=== PATIENT | female | born 1975 | race Hispanic/Latino ===

== ENCOUNTER 2017-06-27 23:26 | Emergency (ER) | payer MEDICARE | END 2017-06-28 00:27 | disposition home or self-care (01) | LOC: EDH 23:26 | DX: I73.00 Raynaud's syndrome without gangrene (principal); F31.9 Bipolar disorder, unspecified; Z98.890 Other specified postprocedural states; Z90.710 Acquired absence of both cervix and uterus; Z90.49 Acquired absence of other specified parts of digestive tract | CPT/HCPCS: 82948; 99282 ==

== ENCOUNTER 2017-08-10 02:03 | Emergency (ER) | payer MEDICARE ==
[2017-08-10] MEDS ORDERED: IBUPROFEN 600 MG TABLET ONE (03:50)
== END 2017-08-10 04:14 | disposition home or self-care (01) ==
LOC: EDH 02:03
DX: M25.562 Pain in left knee (principal); M25.561 Pain in right knee
CPT/HCPCS: 73562

== ENCOUNTER 2017-08-13 23:40 | Emergency (ER) | payer MEDICARE ==
[2017-08-14 00:22] LABS: BASOPHILS % (AUTO) 0.3 % (0.0-5.0); EOSINOPHILS % (AUTO) 1.2 % (0.0-8.0); HEMATOCRIT 43.8 % (36-48); LYMPHOCYTES % (AUTO) 16.3 % (21.0-51.0); MEAN CORPUSCULAR HEMOGLOBIN 29.8 pg (27.0-33.0); MEAN CORPUSCULAR HGB CONC 33.5 g/dL (32.0-36.0); MONOCYTES % (AUTO) 4.7 % (3.0-13.0); NEUTROPHILS % (AUTO) 77.5 % (40.0-77.0); PLATELET COUNT (AUTO) 292 K/uL (130-400); RED BLOOD CELL COUNT(AUTO) 4.92 MIL/uL (4.00-5.50); RED CELL DISTRIBUTION WIDTH 13.9 % (11.0-15.5); WHITE BLOOD COUNT (AUTO) 7.6 K/uL (4.8-10.8)
[2017-08-14 00:35] LABS: CREATININE 1.1 mg/dL (0.5-1.5); POTASSIUM 3.4 mmol/L (3.5-5.1)
[2017-08-14 00:39] LABS: ALBUMIN 3.4 g/dL (3.5-5.0); BILIRUBIN,TOTAL 0.3 mg/dL (0.2-1.0); TOTAL PROTEIN, SERUM 7.5 g/dL (6.0-8.3)
[2017-08-14 00:43] LABS: CREATINE KINASE, TOTAL 37 U/L (21-232)
[2017-08-14 00:54] LABS: CREATINE KINASE MB < 0.5 ng/mL (0.5-3.6)
[2017-08-14 01:01] LABS: AMPHET/METH SCREEN,URINE NEGATIVE (NEGATIVE); BARBITURATE SCREEN, URINE NEGATIVE (NEGATIVE); BENZODIAZEPINES SCREEN,URINE NEGATIVE (NEGATIVE); CANNABINOID SCREEN,URINE NEGATIVE (NEGATIVE); COCAINE SCREEN,URINE POSITIVE (NEGATIVE); OPIATE SCREEN,URINE NEGATIVE (NEGATIVE); PHENCYCLIDINE SCREEN,URINE NEGATIVE (NEGATIVE)
[2017-08-14] MEDS ORDERED: POTASSIUM BICARB/CIT AC 25 MEQ TABLET.EFF ONE (01:23)
[2017-08-14] MEDS ORDERED: ASPIRIN 325 MG TABLET ONE (01:23)
== END 2017-08-14 04:17 | disposition home or self-care (01) ==
LOC: EDH 23:40
DX: G44.209 Tension-type headache, unspecified, not intractable (principal); R03.0 Elevated blood-pressure reading, without diagnosis of hypertension; F31.9 Bipolar disorder, unspecified; Z90.49 Acquired absence of other specified parts of digestive tract; Z90.710 Acquired absence of both cervix and uterus
CPT/HCPCS: 36415; 71045; 80053; 80305; 82550; 82553; 84484; 85025; 93005

== ENCOUNTER 2017-09-05 17:56 | Emergency (ER) | payer MEDICARE ==
[2017-09-05 18:20] LABS: BASOPHILS % (AUTO) 0.8 % (0.0-5.0); HEMATOCRIT 40.3 % (36-48); LYMPHOCYTES % (AUTO) 27.5 % (21.0-51.0); MEAN CORPUSCULAR HEMOGLOBIN 30.1 pg (27.0-33.0); MEAN CORPUSCULAR HGB CONC 34.2 g/dL (32.0-36.0); MEAN CORPUSCULAR VOLUME 87.9 fL (79-99); MONOCYTES % (AUTO) 4.4 % (3.0-13.0); NEUTROPHILS % (AUTO) 65.3 % (40.0-77.0); PLATELET COUNT (AUTO) 264 K/uL (130-400); RED BLOOD CELL COUNT(AUTO) 4.58 MIL/uL (4.00-5.50); RED CELL DISTRIBUTION WIDTH 13.5 % (11.0-15.5); WHITE BLOOD COUNT (AUTO) 7.8 K/uL (4.8-10.8)
[2017-09-05 18:28] LABS: CARBON DIOXIDE 28 mmol/L (21-32); CHLORIDE 107 mmol/L (101-111); GLOMERULAR FILTR. RATE CALC 65 mL/min (>60); GLUCOSE,RANDOM 113 mg/dL (70-105); POTASSIUM 3.7 mmol/L (3.5-5.1); SODIUM SERUM 141 mmol/L (136-145); UREA NITROGEN, BLOOD 17 mg/dL (7-18)
[2017-09-05 18:41] LABS: ALANINE AMINOTRANSFERASE 27 U/L (12-78); ALBUMIN 3.2 g/dL (3.5-5.0); ASPARTATE AMINOTRANSFERASE 16 U/L (10-37); BILIRUBIN,TOTAL 0.1 mg/dL (0.2-1.0); CREATINE KINASE MB < 0.5 ng/mL (0.5-3.6); CREATINE KINASE, TOTAL 28 U/L (21-232); TOTAL PROTEIN, SERUM 7.3 g/dL (6.0-8.3)
[2017-09-05 19:58] LABS: APPEARANCE,URINE Clear (CLEAR); BILIRUBIN,URINE Negative (NEGATIVE); COLOR,URINE Yellow (YELLOW); GLUCOSE, URINE (UA) Negative (NEGATIVE); KETONES,URINE Negative (NEGATIVE); LEUKOCYTE ESTERASE ,URINE Negative (NEGATIVE); NITRATE,URINE Negative (NEGATIVE); OCCULT BLOOD,URINE Moderate (NEGATIVE); PH,URINE 5.5 (5.0-8.0); PROTEIN,URINE Negative (NEGATIVE); UROBILINOGEN,URINE 0.2 mg/dL (0.2-1.0)
[2017-09-05 20:04] LABS: AMPHET/METH SCREEN,URINE NEGATIVE (NEGATIVE); BARBITURATE SCREEN, URINE NEGATIVE (NEGATIVE); BENZODIAZEPINES SCREEN,URINE NEGATIVE (NEGATIVE); CANNABINOID SCREEN,URINE NEGATIVE (NEGATIVE); COCAINE SCREEN,URINE POSITIVE (NEGATIVE); OPIATE SCREEN,URINE NEGATIVE (NEGATIVE); PHENCYCLIDINE SCREEN,URINE NEGATIVE (NEGATIVE)
[2017-09-05 20:07] LABS: BACTERIA,URINE Rare /HPF (None Seen); SQUAMOUS EPITHELIAL CELL,UR Few /HPF (0-2); WBC,URINE 0-1 /HPF (0-1)
== END 2017-09-05 20:04 | disposition home or self-care (01) ==
LOC: EDH 17:56
DX: R07.9 Chest pain, unspecified (principal); M62.838 Other muscle spasm; I10 Essential (primary) hypertension
CPT/HCPCS: 36415; 71046; 80053; 80305; 81001; 82550; 82553; 84484; 85025; 85378; 87804; 93005

== ENCOUNTER 2017-12-19 23:46 | Emergency (ER) | payer MEDICARE ==
[2017-12-20 00:48] LABS: APPEARANCE,URINE Clear (CLEAR); BILIRUBIN,URINE Negative (NEGATIVE); COLOR,URINE Yellow (YELLOW); GLUCOSE, URINE (UA) Negative (NEGATIVE); KETONES,URINE Trace mg/dL (NEGATIVE); LEUKOCYTE ESTERASE ,URINE Negative (NEGATIVE); NITRATE,URINE Negative (NEGATIVE); OCCULT BLOOD,URINE Small (NEGATIVE); PROTEIN,URINE Negative (NEGATIVE)
[2017-12-20 01:00] LABS: BASOPHILS % (AUTO) 0.7 % (0.0-5.0); EOSINOPHILS % (AUTO) 2.2 % (0.0-8.0); MEAN CORPUSCULAR HEMOGLOBIN 30.6 pg (27.0-33.0); MEAN CORPUSCULAR HGB CONC 34.6 g/dL (32.0-36.0); MEAN CORPUSCULAR VOLUME 88.4 fL (79-99); MONOCYTES % (AUTO) 7.6 % (3.0-13.0); NEUTROPHILS % (AUTO) 61.5 % (40.0-77.0); PLATELET COUNT (AUTO) 252 K/uL (130-400); RED BLOOD CELL COUNT(AUTO) 4.18 MIL/uL (4.00-5.50); RED CELL DISTRIBUTION WIDTH 13.3 % (11.0-15.5); WHITE BLOOD COUNT (AUTO) 6.2 K/uL (4.8-10.8)
[2017-12-20 01:07] LABS: POTASSIUM 3.7 mmol/L (3.5-5.1)
[2017-12-20 01:17] LABS: BACTERIA,URINE Rare /HPF (None Seen); WBC,URINE 0-1 /HPF (0-1)
[2017-12-20] MEDS ORDERED: KETOROLAC TROMETHAMINE 15MG/ML ONE (01:32)
[2017-12-20 01:56] LABS: ERYTHROCYTE SEDIMENTATION RATE 25 MM/HR (0-20)
== END 2017-12-20 03:09 | disposition home or self-care (01) ==
LOC: EDH 23:46
DX: R10.9 Unspecified abdominal pain (principal); M54.5 Low back pain; R60.0 Localized edema; I10 Essential (primary) hypertension; F31.9 Bipolar disorder, unspecified; Z90.710 Acquired absence of both cervix and uterus; Z98.890 Other specified postprocedural states; Z79.899 Other long term (current) drug therapy
CPT/HCPCS: 36415; 80048; 81001; 85025; 85651; 96372; 99284; J1885

== ENCOUNTER 2018-06-27 16:34 | Emergency (ER) | payer MEDICARE ==
[2018-06-27 17:02] LABS: APPEARANCE,URINE Clear (CLEAR); BILIRUBIN,URINE Negative (NEGATIVE); COLOR,URINE Yellow (YELLOW); GLUCOSE, URINE (UA) Negative (NEGATIVE); KETONES,URINE Negative (NEGATIVE); LEUKOCYTE ESTERASE ,URINE Negative (NEGATIVE); NITRATE,URINE Negative (NEGATIVE); OCCULT BLOOD,URINE Small (NEGATIVE); PH,URINE 5.5 (5.0-8.0); PROTEIN,URINE Negative (NEGATIVE); UROBILINOGEN,URINE 0.2 mg/dL (0.2-1.0)
[2018-06-27 18:19] LABS: BACTERIA,URINE Rare /HPF (None Seen); RBC,URINE None Seen /HPF (0-1); WBC,URINE 0-1 /HPF (0-1)
== END 2018-06-27 17:33 | disposition home or self-care (01) ==
LOC: EDH 16:34
DX: F41.1 Generalized anxiety disorder (principal); F14.10 Cocaine abuse, uncomplicated; F31.9 Bipolar disorder, unspecified; I10 Essential (primary) hypertension; Z90.710 Acquired absence of both cervix and uterus
CPT/HCPCS: 81001

== ENCOUNTER 2018-07-06 00:31 | Emergency (ER) | payer MEDICARE ==
[2018-07-06 01:39] LABS: APPEARANCE,URINE Clear (CLEAR); BILIRUBIN,URINE Negative (NEGATIVE); COLOR,URINE Yellow (YELLOW); GLUCOSE, URINE (UA) Negative (NEGATIVE); KETONES,URINE Negative (NEGATIVE); LEUKOCYTE ESTERASE ,URINE Large (NEGATIVE); NITRATE,URINE Negative (NEGATIVE); OCCULT BLOOD,URINE Moderate (NEGATIVE); PH,URINE 6.5 (5.0-8.0); PROTEIN,URINE Negative (NEGATIVE); UROBILINOGEN,URINE 0.2 mg/dL (0.2-1.0)
[2018-07-06 01:58] LABS: BACTERIA,URINE None Seen /HPF (None Seen); RBC,URINE 0-1 /HPF (0-1)
[2018-07-06] MEDS ORDERED: ONDANSETRON HCL 4 MG/2 ML VIAL ONE (02:09)
[2018-07-06] MEDS ORDERED: SODIUM CHLORIDE 0.9% 1000ML 1,000 ML IV ONE (02:09)
[2018-07-06] MEDS ORDERED: MORPHINE SULFATE 4 MG/1ML SYG ONE (02:10)
[2018-07-06 02:14] LABS: BASOPHILS % (AUTO) 0.6 % (0.0-5.0); EOSINOPHILS % (AUTO) 1.2 % (0.0-8.0); HEMATOCRIT 38.1 % (36-48); LYMPHOCYTES % (AUTO) 27.7 % (21.0-51.0); MEAN CORPUSCULAR HEMOGLOBIN 30.3 pg (27.0-33.0); MEAN CORPUSCULAR HGB CONC 33.6 g/dL (32.0-36.0); MEAN CORPUSCULAR VOLUME 90.1 fL (79-99); MONOCYTES % (AUTO) 5.6 % (3.0-13.0); NEUTROPHILS % (AUTO) 64.9 % (40.0-77.0); NUCLEATED RED BLOOD CELLS 0.1 % (0.0-0.19); PLATELET COUNT (AUTO) 210 K/uL (130-400); RED BLOOD CELL COUNT(AUTO) 4.23 MIL/uL (4.00-5.50); RED CELL DISTRIBUTION WIDTH 13.2 % (11.0-15.5); WHITE BLOOD COUNT (AUTO) 7.1 K/uL (4.8-10.8)
[2018-07-06] MEDS ORDERED: SODIUM CHLORIDE 0.9% 50 ML IV ONE (02:37)
[2018-07-06] MEDS ORDERED: CEFTRIAXONE SODIUM 1 GM ONE (02:37)
[2018-07-06 02:40] LABS: CREATININE 0.9 mg/dL (0.5-1.5); POTASSIUM 3.7 mmol/L (3.5-5.1)
[2018-07-06 02:44] LABS: ALBUMIN 3.2 g/dL (3.5-5.0); BILIRUBIN,TOTAL 0.2 mg/dL (0.2-1.0); TOTAL PROTEIN, SERUM 6.6 g/dL (6.0-8.3)
[2018-07-06] MEDS ORDERED: MAG HYDROX/AL HYDROX/SIMETH ES 30 ML SUSP UDCUP ONE (03:02)
[2018-07-06] MEDS ORDERED: LIDOCAINE HCL 2% VISCOUS 15 ML UDCUP ONE (03:02)
[2018-07-06] MEDS ORDERED: FAMOTIDINE/PF 20 MG/2 ML VIAL IV ONE (03:02)
== END 2018-07-06 04:23 | disposition home or self-care (01) ==
LOC: EDH 00:31
DX: N39.0 Urinary tract infection, site not specified (principal); K29.70 Gastritis, unspecified, without bleeding; F31.9 Bipolar disorder, unspecified; I10 Essential (primary) hypertension; Z90.710 Acquired absence of both cervix and uterus; Z90.49 Acquired absence of other specified parts of digestive tract
CPT/HCPCS: 36415; 80053; 81001; 83605; 83690; 85025; 96361; 96374; 96375; 99283; J0696; J2270; J2405; J3490; J7030

== ENCOUNTER 2018-11-15 07:04 | Emergency (ER) | payer MEDICARE, OTHER ==
[2018-11-15 07:44] LABS: APPEARANCE,URINE CLEAR (CLEAR); BILIRUBIN,URINE MODERATE (NEGATIVE); COLOR,URINE ORANGE (YELLOW); GLUCOSE, URINE (UA) 250 mg/dL (NEGATIVE); KETONES,URINE 5 mg/dL (NEGATIVE); LEUKOCYTE ESTERASE ,URINE MODERATE (NEGATIVE); NITRATE,URINE POSITIVE (NEGATIVE); OCCULT BLOOD,URINE TRACE-INTACT (NEGATIVE); PROTEIN,URINE 100 mg/dL (NEGATIVE); UROBILINOGEN,URINE >=8.0 mg/dL (0.2-1.0)
[2018-11-15 08:03] LABS: BASOPHILS % (AUTO) 0.5 % (0.0-5.0); EOSINOPHILS % (AUTO) 2.9 % (0.0-8.0); HEMATOCRIT 40.5 % (36-48); LYMPHOCYTES % (AUTO) 35.4 % (21.0-51.0); MEAN CORPUSCULAR HGB CONC 33.8 g/dL (32.0-36.0); MEAN CORPUSCULAR VOLUME 91.9 fL (79-99); MONOCYTES % (AUTO) 7.4 % (3.0-13.0); NEUTROPHILS % (AUTO) 53.8 % (40.0-77.0); NUCLEATED RED BLOOD CELLS 0.1 % (0.0-0.19); PLATELET COUNT (AUTO) 223 K/uL (130-400); RED CELL DISTRIBUTION WIDTH 13.6 % (11.0-15.5); WHITE BLOOD COUNT (AUTO) 5.1 K/uL (4.8-10.8)
[2018-11-15 08:06] LABS: AMPHET/METH SCREEN,URINE NEGATIVE (NEGATIVE); BARBITURATE SCREEN, URINE NEGATIVE (NEGATIVE); BENZODIAZEPINES SCREEN,URINE NEGATIVE (NEGATIVE); CANNABINOID SCREEN,URINE NEGATIVE (NEGATIVE); COCAINE SCREEN,URINE POSITIVE (NEGATIVE); OPIATE SCREEN,URINE NEGATIVE (NEGATIVE); PHENCYCLIDINE SCREEN,URINE NEGATIVE (NEGATIVE)
[2018-11-15] MEDS ORDERED: SODIUM CHLORIDE 0.9% 1000ML 1,000 ML IV ONE (08:26)
[2018-11-15 08:27] LABS: BACTERIA,URINE Rare /HPF (None Seen); MUCUS,URINE Moderate LPF (None Seen); SQUAMOUS EPITHELIAL CELL,UR Rare /HPF (0-2)
[2018-11-15 08:43] LABS: POTASSIUM 3.4 mmol/L (3.5-5.1)
[2018-11-15 08:46] LABS: ALBUMIN 3.3 g/dL (3.5-5.0); BILIRUBIN,TOTAL 0.3 mg/dL (0.2-1.0); TOTAL PROTEIN, SERUM 6.6 g/dL (6.0-8.3)
[2018-11-15] MEDS ORDERED: LEVOFLOXACIN 500 MG/D5W 100 ML 100 ML ONE (08:51)
[2018-11-15] MEDS ORDERED: ONDANSETRON HCL 4 MG/2 ML VIAL ONE (08:54)
== END 2018-11-15 10:14 | disposition home or self-care (01) ==
LOC: EDH 07:04
DX: N10 Acute pyelonephritis (principal); F14.10 Cocaine abuse, uncomplicated; F31.9 Bipolar disorder, unspecified; I10 Essential (primary) hypertension; Z90.710 Acquired absence of both cervix and uterus; Z90.49 Acquired absence of other specified parts of digestive tract
CPT/HCPCS: 36415; 80053; 80305; 81001; 82150; 83690; 85025; 87088; 96365; 96375; 99284; J1956; J2405; J7030

== ENCOUNTER 2019-03-15 02:43 | Emergency (ER) | payer OTHER ==
[2019-03-15] MEDS ORDERED: SODIUM CHLORIDE 0.9% 1000ML 1,000 ML IV ONE ×2 (03:05→04:30)
[2019-03-15] MEDS ORDERED: ASPIRIN 325 MG TABLET ONE (03:17)
[2019-03-15] MEDS ORDERED: ONDANSETRON HCL 4 MG/2 ML VIAL ONE (03:17)
[2019-03-15 03:18] LABS: BASOPHILS % (AUTO) 0.7 % (0.0-5.0); HEMATOCRIT 44.5 % (36-48); LYMPHOCYTES % (AUTO) 35.5 % (21.0-51.0); MEAN CORPUSCULAR HEMOGLOBIN 31.1 pg (27.0-33.0); MEAN CORPUSCULAR HGB CONC 34.4 g/dL (32.0-36.0); MEAN CORPUSCULAR VOLUME 90.5 fL (79-99); MONOCYTES % (AUTO) 5.8 % (3.0-13.0); PLATELET COUNT (AUTO) 231 K/uL (130-400); RED BLOOD CELL COUNT(AUTO) 4.91 MIL/uL (4.00-5.50); RED CELL DISTRIBUTION WIDTH 12.6 % (11.0-15.5); WHITE BLOOD COUNT (AUTO) 7.1 K/uL (4.8-10.8)
[2019-03-15] MEDS ORDERED: FAMOTIDINE/PF 20 MG/2 ML VIAL IV ONE (03:18)
[2019-03-15 03:29] LABS: CREATININE 0.9 mg/dL (0.5-1.5); POTASSIUM 3.3 mmol/L (3.5-5.1)
[2019-03-15 03:31] LABS: INR 0.89 (0.85-1.15); PARTIAL THROMBOPLASTIN TIME 25.3 SEC (26.3-35.5); PROTHROMBIN TIME 9.4 SEC (9.6-11.6)
[2019-03-15 03:33] LABS: ALBUMIN 3.8 g/dL (3.5-5.0); BILIRUBIN,TOTAL 0.3 mg/dL (0.2-1.0); TOTAL PROTEIN, SERUM 7.9 g/dL (6.0-8.3)
[2019-03-15 04:33] LABS: APPEARANCE,URINE Clear (CLEAR); BILIRUBIN,URINE Negative (NEGATIVE); COLOR,URINE Yellow (YELLOW); GLUCOSE, URINE (UA) Negative (NEGATIVE); KETONES,URINE Negative (NEGATIVE); LEUKOCYTE ESTERASE ,URINE Negative (NEGATIVE); NITRATE,URINE Negative (NEGATIVE); OCCULT BLOOD,URINE Nonhemolyzed Trace (NEGATIVE); PROTEIN,URINE Trace mg/dL (NEGATIVE)
[2019-03-15 04:39] LABS: AMORPHOUS SEDIMENT,UR Moderate /LPF (None Seen); BACTERIA,URINE Few /HPF (None Seen); MUCUS,URINE Few LPF (None Seen); RBC,URINE None Seen /HPF (0-1); SQUAMOUS EPITHELIAL CELL,UR Moderate /HPF (0-2); WBC,URINE None Seen /HPF (0-1)
[2019-03-15 04:41] LABS: AMPHET/METH SCREEN,URINE NEGATIVE (NEGATIVE); BARBITURATE SCREEN, URINE NEGATIVE (NEGATIVE); BENZODIAZEPINES SCREEN,URINE NEGATIVE (NEGATIVE); CANNABINOID SCREEN,URINE NEGATIVE (NEGATIVE); COCAINE SCREEN,URINE NEGATIVE (NEGATIVE); OPIATE SCREEN,URINE NEGATIVE (NEGATIVE); PHENCYCLIDINE SCREEN,URINE NEGATIVE (NEGATIVE)
[2019-03-15] MEDS ORDERED: METOCLOPRAMIDE 10 MG/2 ML VIAL ONE (05:19)
[2019-03-15] MEDS ORDERED: DiphenhydrAMINE HCL 50 MG/ML VIAL ONE (05:19)
[2019-03-15] MEDS ORDERED: KETOROLAC TROMETHAMINE 15MG/ML ONE (05:20)
== END 2019-03-15 05:36 | disposition home or self-care (01) ==
LOC: EDH 02:43
DX: E86.9 Volume depletion, unspecified (principal); R11.2 Nausea with vomiting, unspecified; R53.83 Other fatigue; R53.81 Other malaise; R79.1 Abnormal coagulation profile; R19.7 Diarrhea, unspecified; F32.9 Major depressive disorder, single episode, unspecified; I10 Essential (primary) hypertension; Z79.899 Other long term (current) drug therapy
CPT/HCPCS: 36415; 71045; 80053; 80305; 81001; 81025; 82550; 83605; 83690; 83735; 83880; 84484; 85025; 85610; 85730; 93005; 96361; 96374; 96375; 99285; J1200; J1885; J2405; J2765; J3490; J7030 ×2

== ENCOUNTER 2019-09-02 19:41 | Emergency (ER) | payer OTHER ==
[2019-09-02 20:25] LABS: RAPID GROUP A STREP NEGATIVE (NEGATIVE)
[2019-09-02] MEDS ORDERED: OXYMETAZOLINE HCL SPRAY 15 ML BOTTLE ONE (21:30)
== END 2019-09-02 21:35 | disposition home or self-care (01) ==
LOC: EDH 19:41
DX: J01.00 Acute maxillary sinusitis, unspecified (principal); F31.9 Bipolar disorder, unspecified; I10 Essential (primary) hypertension; F41.9 Anxiety disorder, unspecified; Z90.710 Acquired absence of both cervix and uterus; Z79.899 Other long term (current) drug therapy
CPT/HCPCS: 87804; 87880

== ENCOUNTER 2019-10-04 17:34 | Emergency (ER) | payer OTHER ==
[2019-10-04] MEDS ORDERED: ACETAMINOPHEN EXTRA STRENGTH 500 MG TABLET ONE (18:04)
[2019-10-04] MEDS ORDERED: ONDANSETRON ODT 4 MG TAB ONE (18:05)
== END 2019-10-04 19:02 | disposition home or self-care (01) ==
LOC: EDH 17:34
DX: G44.209 Tension-type headache, unspecified, not intractable (principal); R11.0 Nausea; R53.1 Weakness; F41.9 Anxiety disorder, unspecified; F31.9 Bipolar disorder, unspecified; I10 Essential (primary) hypertension; Z88.8 Allergy status to other drugs, medicaments and biological substances; Z90.710 Acquired absence of both cervix and uterus
CPT/HCPCS: 87804; 87880

== ENCOUNTER 2019-12-21 08:28 | Emergency (ER) | payer OTHER ==
[2019-12-21] MEDS ORDERED: IOHEXOL-350 75 ML VIAL IV ONE (08:36)
== END 2019-12-21 12:21 | disposition home or self-care (01) ==
LOC: EDH 08:28
DX: G44.59 Other complicated headache syndrome (principal); G45.9 Transient cerebral ischemic attack, unspecified; F41.9 Anxiety disorder, unspecified; F32.9 Major depressive disorder, single episode, unspecified; I10 Essential (primary) hypertension; Z90.49 Acquired absence of other specified parts of digestive tract; Z90.710 Acquired absence of both cervix and uterus; Z72.0 Tobacco use
CPT/HCPCS: 36415; 70450; 70496; 70498; 71045; 80053; 80305; 81003; 82550; 83721; 84484; 85025; 85610; 85730; 93005; 99285; Q9967

== ENCOUNTER 2020-07-11 16:03 | Emergency (ER) | payer OTHER ==
[2020-07-11 16:49] LABS: BASOPHILS % (AUTO) 0.7 % (0.0-5.0); HEMATOCRIT 42.1 % (36-48); LYMPHOCYTES % (AUTO) 31.5 % (21.0-51.0); MEAN CORPUSCULAR HEMOGLOBIN 30.5 pg (27.0-33.0); MEAN CORPUSCULAR HGB CONC 33.3 g/dL (32.0-36.0); MEAN CORPUSCULAR VOLUME 91.7 fL (79-99); MONOCYTES % (AUTO) 5.9 % (3.0-13.0); NEUTROPHILS % (AUTO) 59.6 % (40.0-77.0); PLATELET COUNT (AUTO) 246 K/uL (130-400); RED BLOOD CELL COUNT(AUTO) 4.59 MIL/uL (4.00-5.50); RED CELL DISTRIBUTION WIDTH 12.6 % (11.0-15.5); WHITE BLOOD COUNT (AUTO) 6.1 K/uL (4.8-10.8)
[2020-07-11] MEDS ORDERED: METOCLOPRAMIDE 10 MG/2 ML VIAL ONE (16:49)
[2020-07-11] MEDS ORDERED: DiphenhydrAMINE HCL 50 MG/ML VIAL ONE (16:49)
[2020-07-11] MEDS ORDERED: ORPHENADRINE CITRATE 30 MG/ML ML ONE (16:50)
[2020-07-11 17:07] LABS: CREATININE 0.9 mg/dL (0.5-1.5); POTASSIUM 3.6 mmol/L (3.5-5.1)
[2020-07-11 17:11] LABS: BILIRUBIN,TOTAL 0.3 mg/dL (0.2-1.0); MAGNESIUM 2.1 mg/dL (1.80-2.40); PHOSPHORUS 3.1 mg/dL (2.5-4.9); TOTAL PROTEIN, SERUM 7.7 g/dL (6.0-8.3)
== END 2020-07-11 18:01 | disposition home or self-care (01) ==
LOC: EDH 16:03
DX: G44.209 Tension-type headache, unspecified, not intractable (principal); R20.2 Paresthesia of skin; F41.9 Anxiety disorder, unspecified; F32.9 Major depressive disorder, single episode, unspecified; I10 Essential (primary) hypertension; Z90.49 Acquired absence of other specified parts of digestive tract; Z90.710 Acquired absence of both cervix and uterus
CPT/HCPCS: 36415; 80053; 83735; 84100; 85025; 96374; 96375; 99284; J1200; J2360; J2765

== ENCOUNTER 2020-11-13 08:39 | Emergency (ER) | payer OTHER ==
[2020-11-13] MEDS ORDERED: GUAIFENESIN-CODEINE 5 ML SYRUP ONE (09:56)
== END 2020-11-13 10:46 | disposition home or self-care (01) ==
LOC: EDH 08:39
DX: J06.9 Acute upper respiratory infection, unspecified (principal); I10 Essential (primary) hypertension; F32.9 Major depressive disorder, single episode, unspecified; F41.9 Anxiety disorder, unspecified; Z20.822 Contact with and (suspected) exposure to COVID-19; Z90.710 Acquired absence of both cervix and uterus
CPT/HCPCS: 71045; 87426; 87635; 87804; 87880

== ENCOUNTER 2020-12-10 14:31 | Observation (INO) | payer MEDICAID, SELFPAY ==
[~2020-12-10] VITALS: Ht 162.6 cm; Wt 71.0 kg
[2020-12-10 15:12] LABS: APPEARANCE,URINE Clear (CLEAR); BILIRUBIN,URINE Negative (NEGATIVE); COLOR,URINE Yellow (YELLOW); GLUCOSE, URINE (UA) Negative (NEGATIVE); KETONES,URINE Negative (NEGATIVE); LEUKOCYTE ESTERASE ,URINE Negative (NEGATIVE); NITRATE,URINE Negative (NEGATIVE); OCCULT BLOOD,URINE Small (NEGATIVE); PH,URINE 5.5 (5.0-8.0); PROTEIN,URINE Negative (NEGATIVE); UROBILINOGEN,URINE 0.2 mg/dL (0.2-1.0)
[2020-12-10 15:15] LABS: HCG,QUAL RESULT NEGATIVE (NEGATIVE)
[2020-12-10 15:18] LABS: BACTERIA,URINE Rare /HPF (None Seen); SQUAMOUS EPITHELIAL CELL,UR Rare /HPF (0-2); WBC,URINE 0-1 /HPF (0-1)
[2020-12-10 15:19] LABS: TRICHOMONAS,URINE Rare /LPF (None Seen)
[2020-12-10 15:20] VITALS: BP 117/72
[2020-12-10 15:24] LABS: BASOPHILS % (AUTO) 0.3 % (0.0-5.0); EOSINOPHILS % (AUTO) 2.4 % (0.0-8.0); HEMATOCRIT 40.8 % (36-48); LYMPHOCYTES % (AUTO) 26.4 % (21.0-51.0); MEAN CORPUSCULAR HEMOGLOBIN 30.2 pg (27.0-33.0); MEAN CORPUSCULAR HGB CONC 32.8 g/dL (32.0-36.0); MEAN CORPUSCULAR VOLUME 91.9 fL (79-99); MONOCYTES % (AUTO) 5.4 % (3.0-13.0); PLATELET COUNT (AUTO) 242 K/uL (130-400); RED BLOOD CELL COUNT(AUTO) 4.44 MIL/uL (4.00-5.50); RED CELL DISTRIBUTION WIDTH 12.5 % (11.0-15.5); WHITE BLOOD COUNT (AUTO) 5.8 K/uL (4.8-10.8)
[2020-12-10 15:33] LABS: CREATININE 0.9 mg/dL (0.5-1.5); POTASSIUM 3.9 mmol/L (3.5-5.1)
[2020-12-10 15:37] LABS: ALBUMIN 3.8 g/dL (3.5-5.0); BILIRUBIN,TOTAL 0.2 mg/dL (0.2-1.0); TOTAL PROTEIN, SERUM 7.5 g/dL (6.0-8.3)
[2020-12-10 15:44] VITALS: BP 126/74
[2020-12-10] MEDS ORDERED: LACTULOSE 20 GM/30 ML UDCUP PO PRN (17:15)
[2020-12-10] MEDS ORDERED: ACETAMINOPHEN 325 MG TAB PO PRN ×2 (17:15)
[2020-12-10] MEDS ORDERED: ONDANSETRON 4MG INJ IV PRN (17:15)
[2020-12-10] MEDS ORDERED: IOHEXOL-350 75 ML VIAL IV ONE (17:19)
[2020-12-10 17:41] LABS: HEMOGLOBIN A1C 5.4 % (4.0-6.0)
[2020-12-10 17:53] VITALS: BP 136/79
[2020-12-10 19:35] VITALS: BP 130/79
[2020-12-10] MEDS: FAMOTIDINE 20MG VIAL IV SCH (21:23)
[2020-12-10 21:58] VITALS: BP 127/73
[2020-12-10 23:01] VITALS: BP 107/58
[2020-12-11 00:14] VITALS: BP 103/61
[2020-12-11 04:05] VITALS: BP 98/49
[2020-12-11 06:29] VITALS: BP 98/57
[2020-12-11 06:53] LABS: CHOLESTEROL 176 mg/dL (<200); HDL CHOLESTEROL 42 mg/dL (35-85); LDL DIRECT 121 mg/dL (0-99); TRIGLYCERIDES 148 mg/dL (30-200)
[2020-12-11] MEDS ORDERED: METRONIDAZOLE 500 MG TABLET PO SCH (07:15)
[2020-12-11] MEDS ORDERED: GADOTERATE MEGLUMINE 10 MMOL/20 ML VIAL IV ONE (08:11)
[2020-12-11 08:57] VITALS: BP 93/57
[2020-12-11] MEDS ORDERED: ASPIRIN 325 MG TABLET PO SCH (09:00)
[2020-12-11] MEDS: FAMOTIDINE 20MG VIAL IV SCH (09:25)
[2020-12-11 11:00] VITALS: BP 115/59
[2020-12-11 16:00] VITALS: BP 130/63
== END 2020-12-11 19:06 | disposition home or self-care (01) ==
LOC: EDH 14:43 → EDHIP 14:44 → 4AH 12-11 07:28
PROVIDERS: ADMIT Internal Medicine; ATTEND Internal Medicine
DX: G45.9 Transient cerebral ischemic attack, unspecified (principal); F31.9 Bipolar disorder, unspecified; A59.9 Trichomoniasis, unspecified; R47.1 Dysarthria and anarthria; I10 Essential (primary) hypertension; R29.700 NIHSS score 0; Z90.710 Acquired absence of both cervix and uterus; Z90.49 Acquired absence of other specified parts of digestive tract; Z98.890 Other specified postprocedural states
CPT/HCPCS: 36415 ×2; 70450; 70496; 70498; 70553; 71045; 80053; 80061; 81001; 81025; 83036; 84145; 84443; 84484; 85025; 92522; 92610; 96374; 96376; 97161; 99285; A9575; G0378 ×26; G8978; G8979; G8980; G8981; G8982; G8983; J3490 ×2; Q9967; 96365

== ENCOUNTER 2021-02-26 14:36 | Emergency (ER) | payer MEDICAID ==
[~2021-02-26] VITALS: Ht 162.6 cm; Wt 72.6 kg
[2021-02-26 15:25] VITALS: BP 126/77
== END 2021-02-26 16:22 | disposition home or self-care (01) ==
LOC: EDH 14:36
DX: R20.2 Paresthesia of skin (principal); F31.9 Bipolar disorder, unspecified; F41.9 Anxiety disorder, unspecified; I10 Essential (primary) hypertension; Z90.49 Acquired absence of other specified parts of digestive tract
CPT/HCPCS: 99281

== ENCOUNTER 2021-06-27 20:11 | Emergency (ER) | payer MEDICAID ==
[~2021-06-27] VITALS: Ht 162.6 cm; Wt 68.0 kg
[2021-06-27 20:12] VITALS: BP 122/85
== END 2021-06-27 22:02 | disposition left against medical advice (07) ==
LOC: EDH 20:11
DX: R09.81 Nasal congestion (principal); Z53.21 Procedure and treatment not carried out due to patient leaving prior to being seen by health care provider

== ENCOUNTER 2021-07-06 23:32 | Emergency (ER) | payer MEDICAID ==
[~2021-07-06] VITALS: Ht 162.6 cm; Wt 70.3 kg
[2021-07-07 01:47] VITALS: BP 112/56
== END 2021-07-07 05:10 | disposition left against medical advice (07) ==
LOC: EDH 23:32
DX: R51.9 Headache, unspecified (principal); Z53.21 Procedure and treatment not carried out due to patient leaving prior to being seen by health care provider

== ENCOUNTER 2021-09-07 15:29 | Emergency (ER) | payer MEDICAID ==
[~2021-09-07] VITALS: Ht 162.6 cm; Wt 70.3 kg
[2021-09-07 15:30] VITALS: BP 144/77
[2021-09-07] MEDS ORDERED: IBUPROFEN 600 MG TABLET ONE (15:50)
[2021-09-07] MEDS ORDERED: TETANUS/DIPHTHERIA TOXOID [ADULT] 0.5 ML VIAL IM ONE (15:51)
== END 2021-09-07 16:08 | disposition home or self-care (01) ==
LOC: EDH 15:29
DX: M79.672 Pain in left foot (principal); F41.9 Anxiety disorder, unspecified; K21.9 Gastro-esophageal reflux disease without esophagitis; M06.9 Rheumatoid arthritis, unspecified; Z90.49 Acquired absence of other specified parts of digestive tract; Z98.890 Other specified postprocedural states; W22.8XXA Striking against or struck by other objects, initial encounter; Y93.89 Activity, other specified; Y92.89 Other specified places as the place of occurrence of the external cause; Y99.8 Other external cause status
CPT/HCPCS: 73620; 90471; 90714

== ENCOUNTER 2021-10-08 00:42 | Emergency (ER) | payer MEDICAID ==
[~2021-10-08] VITALS: Ht 162.6 cm; Wt 69.4 kg
[2021-10-08 00:49] VITALS: BP 105/63
== END 2021-10-08 02:46 | disposition left against medical advice (07) ==
LOC: EDH 00:42
DX: R05.9 Cough, unspecified (principal); Z20.822 Contact with and (suspected) exposure to COVID-19; Z53.21 Procedure and treatment not carried out due to patient leaving prior to being seen by health care provider
CPT/HCPCS: 87635; 87804 ×2; 87880; C9803

== ENCOUNTER 2022-02-13 07:30 | Emergency (ER) | payer MEDICAID ==
[~2022-02-13] VITALS: Ht 162.6 cm; Wt 72.6 kg
[~2022-02-13 07:30] MED LIST: AMOX1TAB16 PO; CEPH250C2 PO; IBUP-1493 PO; IBUP-2070 PO; PHEN-847 PO
[2022-02-13 07:33] VITALS: BP 154/92
[2022-02-13] MEDS ORDERED: NAPR375T6 PO (09:02)
== END 2022-02-13 09:16 | disposition home or self-care (01) ==
LOC: EDH 07:30
DX: S93.402A Sprain of unspecified ligament of left ankle, initial encounter (principal); F31.9 Bipolar disorder, unspecified; Z79.1 Long term (current) use of non-steroidal anti-inflammatories (NSAID); Z90.49 Acquired absence of other specified parts of digestive tract; X58.XXXA Exposure to other specified factors, initial encounter; Y93.89 Activity, other specified; Y92.89 Other specified places as the place of occurrence of the external cause; Y99.8 Other external cause status
CPT/HCPCS: 73590; 73610

== ENCOUNTER 2022-02-23 11:28 | Emergency (ER) | payer MEDICAID ==
[~2022-02-23] VITALS: Ht 162.6 cm; Wt 72.6 kg
[~2022-02-23 11:28] MED LIST changes: +NAPR375T6 PO
[2022-02-23 12:14] LABS: APPEARANCE,URINE CLEAR (CLEAR); BILIRUBIN,URINE NEGATIVE (NEGATIVE); COLOR,URINE YELLOW (YELLOW); GLUCOSE, URINE (UA) NEGATIVE (NEGATIVE); KETONES,URINE NEGATIVE (NEGATIVE); LEUKOCYTE ESTERASE ,URINE NEGATIVE (NEGATIVE); NITRATE,URINE NEGATIVE (NEGATIVE); OCCULT BLOOD,URINE SMALL (NEGATIVE); PROTEIN,URINE NEGATIVE (NEGATIVE); UROBILINOGEN,URINE 0.2 mg/dL (0.2-1.0)
[2022-02-23 12:21] LABS: BACTERIA,URINE Rare /HPF (None Seen); RBC,URINE 0-1 /HPF (0-1); SQUAMOUS EPITHELIAL CELL,UR Rare /HPF (0-2); WBC,URINE 0-1 /HPF (0-1)
[2022-02-23 12:26] LABS: HCG,QUALITATIVE URINE NEGATIVE (NEGATIVE)
[2022-02-23] MEDS ORDERED: CETI10TA57 PO (13:15)
[2022-02-23] MEDS ORDERED: IBUP-2070 PO (13:15)
[2022-02-23] MEDS ORDERED: FLUT15.845 NS (13:15)
[2022-02-23 14:05] VITALS: BP 128/91
== END 2022-02-23 14:12 | disposition home or self-care (01) ==
LOC: EDH 11:28
DX: J06.9 Acute upper respiratory infection, unspecified (principal); Z20.822 Contact with and (suspected) exposure to COVID-19; F31.9 Bipolar disorder, unspecified; Z79.1 Long term (current) use of non-steroidal anti-inflammatories (NSAID); Z90.49 Acquired absence of other specified parts of digestive tract
CPT/HCPCS: 81001; 81025; 87426; 87804

== ENCOUNTER 2022-04-28 01:17 | Observation (INO) | payer MEDICAID ==
[~2022-04-28] VITALS: Ht 162.6 cm; Wt 75.9 kg
[~2022-04-28 01:17] MED LIST changes: +CETI10TA57 PO; +FLUT15.845 NS; +PRED20TA3 PO
[2022-04-28 01:48] LABS: BASOPHILS % (AUTO) 0.4 % (0.0-5.0); EOSINOPHILS % (AUTO) 2.1 % (0.0-8.0); HEMATOCRIT 39.3 % (36-48); LYMPHOCYTES % (AUTO) 30.2 % (21.0-51.0); MEAN CORPUSCULAR HGB CONC 33.8 g/dL (32.0-36.0); MEAN CORPUSCULAR VOLUME 91.6 fL (79-99); MONOCYTES % (AUTO) 6.1 % (3.0-13.0); NEUTROPHILS % (AUTO) 60.9 % (40.0-77.0); PLATELET COUNT (AUTO) 232 K/uL (130-400); RED BLOOD CELL COUNT(AUTO) 4.29 MIL/uL (4.00-5.50); RED CELL DISTRIBUTION WIDTH 13.1 % (11.0-15.5); WHITE BLOOD COUNT (AUTO) 7.2 K/uL (4.8-10.8)
[2022-04-28 01:57] LABS: POTASSIUM 3.7 mmol/L (3.5-5.1)
[2022-04-28 02:02] LABS: ALBUMIN 3.2 g/dL (3.5-5.0); TOTAL PROTEIN, SERUM 6.9 g/dL (6.0-8.3)
[2022-04-28] MEDS ORDERED: MORPHINE 4 MG SYG IV PRN (04:00)
[2022-04-28] MEDS ORDERED: ONDANSETRON 4MG INJ IV PRN (04:00)
[2022-04-28] MEDS ORDERED: ACETAMINOPHEN 325 MG TAB PO PRN ×2 (04:00)
[2022-04-28] MEDS ORDERED: ASPIRIN 81MG CHEW TAB PO ONE (04:00)
[2022-04-28] MEDS ORDERED: HYDROCODONE/ACETAMINOPHEN 5/325 MG TAB PO PRN (04:00)
[2022-04-28] MEDS ORDERED: ZOLPIDEM TARTRATE 5 MG TAB PO PRN (04:00)
[2022-04-28] MEDS ORDERED: NITROGLYCERIN 0.4 MG SL TAB SL PRN (04:00)
[2022-04-28 04:48] LABS: APPEARANCE,URINE CLEAR (CLEAR); BILIRUBIN,URINE NEGATIVE (NEGATIVE); COLOR,URINE LIGHT-YELLOW (YELLOW); GLUCOSE, URINE (UA) NEGATIVE (NEGATIVE); KETONES,URINE NEGATIVE (NEGATIVE); LEUKOCYTE ESTERASE ,URINE NEGATIVE Leu/uL (NEGATIVE); NITRATE,URINE NEGATIVE (NEGATIVE); PH,URINE 5.5 (5.0-8.0); PROTEIN,URINE NEGATIVE (NEGATIVE); UROBILINOGEN,URINE 0.2 mg/dL (0.2-1.0)
[2022-04-28 04:49] LABS: OCCULT BLOOD,URINE NEGATIVE (NEGATIVE)
[2022-04-28 05:00] VITALS: BP 117/74
[2022-04-28] MEDS ORDERED: HYDR12.54 PO (06:25)
[2022-04-28] MEDS ORDERED: BUPR-72 PO (06:25)
[2022-04-28] MEDS ORDERED: CARB200T PO (06:25)
[2022-04-28] MEDS ORDERED: BUSP15 PO (06:25)
[2022-04-28 08:00] VITALS: BP 117/61
[2022-04-28] MEDS ORDERED: ASPIRIN 81MG CHEW TAB PO SCH (09:00)
[2022-04-28] MEDS ORDERED: ENOXAPARIN SODIUM 40 MG/0.4 ML SYRINGE SQ SCH (09:00)
[2022-04-28] MEDS ORDERED: FAMOTIDINE 20MG VIAL IV SCH (09:00)
[2022-04-28] MEDS ORDERED: LORA10TA7 PO (10:41)
[2022-04-28] MEDS ORDERED: FLUT15.845 NS (10:41)
[2022-04-28 11:31] VITALS: BP 103/45
== END 2022-04-28 12:30 | disposition home or self-care (01) ==
LOC: EDH 01:17 → INTOOBSV 01:18 → EDHIP 01:18 → 3AH 04:48
PROVIDERS: ADMIT Hospitalist; ATTEND Hospitalist
DX: R07.89 Other chest pain (principal); E11.9 Type 2 diabetes mellitus without complications; I10 Essential (primary) hypertension; J30.2 Other seasonal allergic rhinitis; F31.9 Bipolar disorder, unspecified; F41.9 Anxiety disorder, unspecified; H66.92 Otitis media, unspecified, left ear; I73.00 Raynaud's syndrome without gangrene; M06.9 Rheumatoid arthritis, unspecified; Z90.710 Acquired absence of both cervix and uterus; Z98.891 History of uterine scar from previous surgery; Z79.899 Other long term (current) drug therapy; Z98.890 Other specified postprocedural states; Z90.49 Acquired absence of other specified parts of digestive tract
CPT/HCPCS: 96374; 96372; 99285; 84484 ×2; 80053; 85025; 81003; 36415; 71045; 93005; G0378 ×3; S0028; J1650; J3490

== ENCOUNTER 2022-08-25 18:01 | Emergency (ER) | payer MEDICAID ==
[~2022-08-25] VITALS: Ht 162.6 cm; Wt 74.4 kg
[~2022-08-25 18:01] MED LIST changes: -AMOX1TAB16 PO; +BUPR-72 PO; +BUSP15 PO; +CARB200T PO; -CEPH250C2 PO; -CETI10TA57 PO; +HYDR12.54 PO; -IBUP-1493 PO; -IBUP-2070 PO; +LORA10TA7 PO; -NAPR375T6 PO; -PHEN-847 PO; -PRED20TA3 PO
[2022-08-25 18:42] LABS: BASOPHILS % (AUTO) 0.3 % (0.0-5.0); EOSINOPHILS % (AUTO) 1.1 % (0.0-8.0); HEMATOCRIT 41.1 % (36-48); LYMPHOCYTES % (AUTO) 24.9 % (21.0-51.0); MEAN CORPUSCULAR HEMOGLOBIN 31.2 pg (27.0-33.0); MEAN CORPUSCULAR HGB CONC 33.6 g/dL (32.0-36.0); MONOCYTES % (AUTO) 5.8 % (3.0-13.0); NEUTROPHILS % (AUTO) 67.4 % (40.0-77.0); PLATELET COUNT (AUTO) 265 K/uL (130-400); RED BLOOD CELL COUNT(AUTO) 4.42 MIL/uL (4.00-5.50); RED CELL DISTRIBUTION WIDTH 13.2 % (11.0-15.5); WHITE BLOOD COUNT (AUTO) 8.8 K/uL (4.8-10.8)
[2022-08-25 18:43] LABS: APPEARANCE,URINE CLEAR (CLEAR); BILIRUBIN,URINE NEGATIVE (NEGATIVE); COLOR,URINE LIGHT-YELLOW (YELLOW); GLUCOSE, URINE (UA) NEGATIVE (NEGATIVE); KETONES,URINE NEGATIVE (NEGATIVE); LEUKOCYTE ESTERASE ,URINE NEGATIVE Leu/uL (NEGATIVE); NITRATE,URINE NEGATIVE (NEGATIVE); OCCULT BLOOD,URINE SMALL (NEGATIVE); PH,URINE 5.5 (5.0-8.0); PROTEIN,URINE NEGATIVE (NEGATIVE); UROBILINOGEN,URINE 0.2 mg/dL (0.2-1.0)
[2022-08-25 18:51] LABS: BACTERIA,URINE RARE /HPF (None Seen); MUCUS,URINE RARE LPF (None Seen); SQUAMOUS EPITHELIAL CELL,UR RARE /HPF (0-2); WBC,URINE 0-1 /HPF (0-1); YEAST,URINE BUDDING FEW /HPF (None Seen)
[2022-08-25 18:54] LABS: HCG,QUALITATIVE URINE NEGATIVE (NEGATIVE)
[2022-08-25 18:58] LABS: POTASSIUM 3.7 mmol/L (3.5-5.1)
[2022-08-25 19:03] LABS: ALBUMIN 3.4 g/dL (3.5-5.0); TOTAL PROTEIN, SERUM 7.1 g/dL (6.0-8.3)
[2022-08-25] MEDS ORDERED: IOHEXOL 350 MG/ML 100ML INFUS..BTL IV ONE (19:20)
[2022-08-25 20:26] VITALS: BP 110/72
[2022-08-25] MEDS ORDERED: KETOROLAC 30MG VIAL (30MG/ML) IVP ONE (20:30)
[2022-08-25] MEDS ORDERED: NAPR500T6 PO (20:37)
== END 2022-08-25 20:43 | disposition home or self-care (01) ==
LOC: EDH 18:01
DX: D27.0 Benign neoplasm of right ovary (principal); F32.A Depression, unspecified; Z90.49 Acquired absence of other specified parts of digestive tract; Z79.899 Other long term (current) drug therapy; Z79.1 Long term (current) use of non-steroidal anti-inflammatories (NSAID); Z90.710 Acquired absence of both cervix and uterus
CPT/HCPCS: 99285; 74177; 96374; 80053; 85025; 83605; 81001; 81025; 36415; J1885; Q9967

== ENCOUNTER 2022-08-29 10:41 | Emergency (ER) | payer MEDICAID ==
[~2022-08-29] VITALS: Ht 152.4 cm; Wt 72.6 kg
[~2022-08-29 10:41] MED LIST changes: +NAPR500T6 PO
[2022-08-29 11:13] LABS: BASOPHILS % (AUTO) 0.3 % (0.0-5.0); EOSINOPHILS % (AUTO) 1.1 % (0.0-8.0); HEMATOCRIT 39.3 % (36-48); LYMPHOCYTES % (AUTO) 22.4 % (21.0-51.0); MEAN CORPUSCULAR HGB CONC 33.3 g/dL (32.0-36.0); MEAN CORPUSCULAR VOLUME 93.1 fL (79-99); NEUTROPHILS % (AUTO) 70.7 % (40.0-77.0); PLATELET COUNT (AUTO) 220 K/uL (130-400); RED BLOOD CELL COUNT(AUTO) 4.22 MIL/uL (4.00-5.50); RED CELL DISTRIBUTION WIDTH 13.3 % (11.0-15.5); WHITE BLOOD COUNT (AUTO) 6.2 K/uL (4.8-10.8)
[2022-08-29 11:17] LABS: APPEARANCE,URINE CLEAR (CLEAR); BILIRUBIN,URINE NEGATIVE (NEGATIVE); COLOR,URINE LIGHT-YELLOW (YELLOW); GLUCOSE, URINE (UA) NEGATIVE (NEGATIVE); KETONES,URINE NEGATIVE (NEGATIVE); LEUKOCYTE ESTERASE ,URINE NEGATIVE Leu/uL (NEGATIVE); NITRATE,URINE NEGATIVE (NEGATIVE); OCCULT BLOOD,URINE SMALL (NEGATIVE); PROTEIN,URINE NEGATIVE (NEGATIVE); UROBILINOGEN,URINE 0.2 mg/dL (0.2-1.0)
[2022-08-29 11:22] LABS: CREATININE 0.9 mg/dL (0.5-1.5); POTASSIUM 3.7 mmol/L (3.5-5.1)
[2022-08-29 11:27] LABS: TOTAL PROTEIN, SERUM 6.4 g/dL (6.0-8.3)
[2022-08-29 11:30] LABS: HCG,QUALITATIVE URINE NEGATIVE (NEGATIVE)
[2022-08-29] MEDS ORDERED: ONDANSETRON 4MG INJ ONE (11:30)
[2022-08-29] MEDS ORDERED: 0.9%NACL 1000ML 1,000 ML IV ONE (11:30)
[2022-08-29] MEDS ORDERED: ONDANSETRON 4MG INJ IVP ONE (11:30)
[2022-08-29 11:33] LABS: MUCUS,URINE RARE LPF (None Seen); SQUAMOUS EPITHELIAL CELL,UR RARE /HPF (0-2); WBC,URINE 0-1 /HPF (0-1)
[2022-08-29] MEDS ORDERED: KETOROLAC 30MG VIAL (30MG/ML) ONE (12:49)
[2022-08-29] MEDS ORDERED: KETOROLAC 30MG VIAL (30MG/ML) IVP ONE (13:00)
[2022-08-29] MEDS ORDERED: KETO10 PO (14:35)
[2022-08-29 14:38] VITALS: BP 109/62
== END 2022-08-29 14:41 | disposition home or self-care (01) ==
LOC: EDH 10:41
DX: R10.32 Left lower quadrant pain (principal); F41.9 Anxiety disorder, unspecified; F31.9 Bipolar disorder, unspecified; Z79.1 Long term (current) use of non-steroidal anti-inflammatories (NSAID); Z79.899 Other long term (current) drug therapy; Z90.49 Acquired absence of other specified parts of digestive tract
CPT/HCPCS: 99285; 96374; 76856; 96361; 96375; 80053; 85025; 81001; 81025; 36415; J7030; J2405; J1885

== ENCOUNTER 2022-09-21 05:35 | Day surgery (SDC) | payer MEDICAID ==
[2022-09-17 11:39] VITALS: BP 119/67
[2022-09-17 11:46] LABS: BASOPHILS % (AUTO) 0.5 % (0.0-5.0); EOSINOPHILS % (AUTO) 1.9 % (0.0-8.0); HEMATOCRIT 44.8 % (36-48); LYMPHOCYTES % (AUTO) 27.3 % (21.0-51.0); MEAN CORPUSCULAR HEMOGLOBIN 30.7 pg (27.0-33.0); MEAN CORPUSCULAR HGB CONC 31.9 g/dL (32.0-36.0); MEAN CORPUSCULAR VOLUME 96.1 fL (79-99); MONOCYTES % (AUTO) 6.2 % (3.0-13.0); NEUTROPHILS % (AUTO) 63.6 % (40.0-77.0); PLATELET COUNT (AUTO) 272 K/uL (130-400); RED BLOOD CELL COUNT(AUTO) 4.66 MIL/uL (4.00-5.50); RED CELL DISTRIBUTION WIDTH 13.3 % (11.0-15.5); WHITE BLOOD COUNT (AUTO) 5.8 K/uL (4.8-10.8)
[2022-09-17 12:03] LABS: INR 0.93 (0.85-1.15); PROTHROMBIN TIME 9.9 SEC (9.6-11.6)
[2022-09-17 12:05] LABS: PARTIAL THROMBOPLASTIN TIME 27.1 SEC (26.3-35.5)
[2022-09-17 12:09] LABS: APPEARANCE,URINE CLEAR (CLEAR); BILIRUBIN,URINE NEGATIVE (NEGATIVE); COLOR,URINE LIGHT-YELLOW (YELLOW); GLUCOSE, URINE (UA) NEGATIVE (NEGATIVE); KETONES,URINE NEGATIVE (NEGATIVE); LEUKOCYTE ESTERASE ,URINE NEGATIVE Leu/uL (NEGATIVE); NITRATE,URINE NEGATIVE (NEGATIVE); OCCULT BLOOD,URINE SMALL (NEGATIVE); PH,URINE 5.5 (5.0-8.0); PROTEIN,URINE NEGATIVE (NEGATIVE); UROBILINOGEN,URINE 0.2 mg/dL (0.2-1.0)
[2022-09-17 12:29] LABS: MUCUS,URINE RARE LPF (None Seen); RBC,URINE 0-1 /HPF (0-1); SQUAMOUS EPITHELIAL CELL,UR RARE /HPF (0-2); WBC,URINE 0-1 /HPF (0-1)
[2022-09-21] VITALS (15 sets, daily range): BP systolic 103–127; BP diastolic 47–76
[~2022-09-21] VITALS: Ht 162.6 cm; Wt 75.9 kg
[~2022-09-21 05:35] MED LIST changes: +ACET-2079 PO; +FISH OIL PO; -FLUT15.845 NS; -HYDR12.54 PO; -LORA10TA7 PO; +MVI PO; -NAPR500T6 PO; +TURMERIC PO; +VITAMIN D PO
[2022-09-21] MEDS ORDERED: LACTATED RINGERS 1000ML 1,000 ML IV ONE (07:17)
[2022-09-21] MEDS ORDERED: ROCURONIUM 10MG/1ML SYR 10 MG/ML ML ONE (10:35)
[2022-09-21] MEDS ORDERED: MIDAZOLAM HCL 1 MG/ML 2ML VIAL ONE (10:35)
[2022-09-21] MEDS ORDERED: PROPOFOL 10 MG/ML 20ML VIAL IV ONE (10:35)
[2022-09-21] MEDS ORDERED: FENTANYL CITRATE PF 50 MCG/1 ML 2ML VIAL ONE (10:36)
[2022-09-21] MEDS ORDERED: DEXAMETHASONE SOD PHOSPHATE 4 MG/ML 1ML VIAL ONE (11:24)
[2022-09-21] MEDS ORDERED: GLYCOPYRROLATE 1 MG/5 ML SYRINGE ONE (11:25)
[2022-09-21] MEDS ORDERED: NEOSTIGMINE 5MG/5ML SYR IV ONE (11:26)
[2022-09-21] MEDS ORDERED: ONDANSETRON 4MG INJ ONE (11:32)
[2022-09-21] MEDS ORDERED: MORPHINE 2 MG SYG ONE (11:53)
== END 2022-09-21 13:20 | disposition home or self-care (01) ==
LOC: DAH 05:35
PROVIDERS: ATTEND Obstetrics & Gynecology
DX: R10.2 Pelvic and perineal pain (principal); Z20.822 Contact with and (suspected) exposure to COVID-19; D27.0 Benign neoplasm of right ovary; N73.6 Female pelvic peritoneal adhesions (postinfective); I10 Essential (primary) hypertension; M06.9 Rheumatoid arthritis, unspecified; K21.9 Gastro-esophageal reflux disease without esophagitis; E78.5 Hyperlipidemia, unspecified; Z98.891 History of uterine scar from previous surgery; Z82.49 Family history of ischemic heart disease and other diseases of the circulatory system; Z80.0 Family history of malignant neoplasm of digestive organs; Z90.710 Acquired absence of both cervix and uterus; Z90.49 Acquired absence of other specified parts of digestive tract
CPT/HCPCS: 85025; 85610; 85730; 86850 ×2; 86900 ×2; 86901 ×2; 87426; 81001; 36415 ×2; 58661; A6260; J1100; A4663; A4351; A4606; A4344; J7120; J3010; J3490 ×2; J2710; J2250; J2405; A4649 ×3; C1769 ×2; A4215 ×2; A4223; A4222; A4221; A4600; J2704

== ENCOUNTER 2023-03-30 10:36 | Emergency (ER) | payer MEDICAID, OTHER ==
[~2023-03-30] VITALS: Ht 162.6 cm; Wt 77.1 kg
[2023-03-30 12:04] LABS: APPEARANCE,URINE CLOUDY (CLEAR); BILIRUBIN,URINE 0.5 mg/dL (NEGATIVE); COLOR,URINE DARK-YELLOW (YELLOW); GLUCOSE, URINE (UA) NEGATIVE (NEGATIVE); KETONES,URINE NEGATIVE (NEGATIVE); LEUKOCYTE ESTERASE ,URINE 500 Leu/uL (NEGATIVE); NITRATE,URINE 1+ (NEGATIVE); OCCULT BLOOD,URINE SMALL (NEGATIVE); PH,URINE 5.5 (5.0-8.0); PROTEIN,URINE 20 mg/dL (NEGATIVE)
[2023-03-30 12:11] LABS: ADD UA MICROSCOPIC YES
[2023-03-30 12:12] LABS: HCG,QUALITATIVE URINE NEGATIVE (NEGATIVE)
[2023-03-30 12:13] LABS: BACTERIA,URINE FEW /HPF (None Seen); MUCUS,URINE RARE LPF (None Seen); OTHER CASTS, URINE 3 /LPF (None Seen); TRANSITIONAL EPI CELLS,URINE MOD /HPF (None Seen); WBC,URINE >100 /HPF (0-1)
[2023-03-30 12:14] LABS: BASOPHILS # (AUTO) 0.04 K/uL (0.00-0.20); BASOPHILS % (AUTO) 0.7 % (0.0-5.0); EOSINOPHILS # (AUTO) 0.19 K/uL (0.00-0.70); EOSINOPHILS % (AUTO) 3.1 % (0.0-8.0); IMMATURE GRANULOCYTE ABSOLUTE 0.03 K/uL (0-1); LYMPHOCYTES # (AUTO) 1.5 K/uL (1.0-4.8); MEAN CORPUSCULAR HEMOGLOBIN 30.6 pg (27.0-33.0); MEAN CORPUSCULAR HGB CONC 33.6 g/dL (32.0-36.0); MEAN CORPUSCULAR VOLUME 91.1 fL (79-99); MONOCYTES # (AUTO) 0.3 K/uL (0.1-1.0); MONOCYTES % (AUTO) 5.4 % (3.0-13.0); NEUTROPHILS # (AUTO) 4.1 K/uL (1.8-7.7); NEUTROPHILS % (AUTO) 66.3 % (40.0-77.0); PLATELET COUNT (AUTO) 265 K/uL (130-400); RED BLOOD CELL COUNT(AUTO) 4.94 MIL/uL (4.00-5.50); RED CELL DISTRIBUTION WIDTH 12.9 % (11.0-15.5); WHITE BLOOD COUNT (AUTO) 6.1 K/uL (4.8-10.8)
[2023-03-30 12:19] LABS: POTASSIUM 3.8 mmol/L (3.5-5.1)
[2023-03-30 12:23] LABS: ALBUMIN 3.7 g/dL (3.5-5.0); BILIRUBIN,TOTAL 0.3 mg/dL (0.2-1.0); TOTAL PROTEIN, SERUM 8.1 g/dL (6.0-8.3)
[2023-03-30] MEDS ORDERED: CEFTRIAXONE 2GM VIAL IVPB ONE (13:30)
[2023-03-30] MEDS ORDERED: 0.9%NACL 1000ML 1,000 ML IV ONE (13:30)
[2023-03-30] MEDS ORDERED: CEPH500T PO (13:44)
[2023-03-30] MEDS ORDERED: PROCHLORPERAZINE 10MG/2ML INJ IV ONE (14:00)
[2023-03-30 14:17] VITALS: BP 125/69; PULSE 72; RESP 18; O2SAT 96
== END 2023-03-30 15:05 | disposition home or self-care (01) ==
LOC: EDH 10:36
DX: N12 Tubulo-interstitial nephritis, not specified as acute or chronic (principal); R30.0 Dysuria; M54.50 Low back pain, unspecified; F32.A Depression, unspecified; F41.9 Anxiety disorder, unspecified; N39.0 Urinary tract infection, site not specified; Z79.899 Other long term (current) drug therapy; Z90.49 Acquired absence of other specified parts of digestive tract; Z90.710 Acquired absence of both cervix and uterus; Z98.890 Other specified postprocedural states
CPT/HCPCS: 99284; 96374; 96375; 80053; 83690; 85025; 87088; 81001; 81025; 36415; J7030; J0696; J0780

== ENCOUNTER 2023-06-15 11:28 | Emergency (ER) | payer OTHER ==
[~2023-06-15] VITALS: Ht 162.6 cm; Wt 81.6 kg
[~2023-06-15 11:28] MED LIST changes: +CEPH500T PO
[2023-06-15 14:20] LABS: RAPID GROUP A STREP negative (NEGATIVE)
[2023-06-15 14:23] LABS: SARS-CoV-2, RNA, NAAT NEGATIVE SARS CoV-2 (NEGATIVE)
[2023-06-15 14:30] LABS: INFLUENZA TYPE A Negative For Type A (NEGATIVE); INFLUENZA TYPE B Negative For Type B (NEGATIVE)
[2023-06-15 15:06] VITALS: BP 141/87; PULSE 66; RESP 16; O2SAT 97
== END 2023-06-15 15:09 | disposition home or self-care (01) ==
LOC: EDH 11:28
DX: B34.9 Viral infection, unspecified (principal); F41.9 Anxiety disorder, unspecified; F32.A Depression, unspecified; Z90.49 Acquired absence of other specified parts of digestive tract; Z90.710 Acquired absence of both cervix and uterus; Z20.822 Contact with and (suspected) exposure to COVID-19; Z79.899 Other long term (current) drug therapy; Z98.890 Other specified postprocedural states
CPT/HCPCS: 99283; 87635; 87880; 87804 ×2; C9803

== ENCOUNTER 2023-10-19 15:19 | Emergency (ER) | payer OTHER ==
[~2023-10-19] VITALS: Ht 162.6 cm; Wt 81.6 kg
[2023-10-19 15:24] VITALS: BP 144/84; PULSE 67; RESP 16; O2SAT 99
== END 2023-10-19 17:49 | disposition left against medical advice (07) ==
LOC: EDH 15:19
DX: M54.50 Low back pain, unspecified (principal); Z53.21 Procedure and treatment not carried out due to patient leaving prior to being seen by health care provider
CPT/HCPCS: 99281

== ENCOUNTER 2023-12-01 22:38 | Emergency (ER) | payer OTHER ==
[~2023-12-01] VITALS: Ht 162.6 cm; Wt 80.3 kg
[2023-12-01 23:10] VITALS: BP 156/87; PULSE 68; RESP 18; O2SAT 99
[2023-12-01 23:46] LABS: BASOPHILS # (AUTO) 0.04 K/uL (0.00-0.20); BASOPHILS % (AUTO) 0.5 % (0.0-5.0); EOSINOPHILS % (AUTO) 2.3 % (0.0-8.0); HEMATOCRIT 40.9 % (36-48); IMMATURE GRANULOCYTE ABSOLUTE 0.03 K/uL (0-1); LYMPHOCYTES # (AUTO) 2.9 K/uL (1.0-4.8); LYMPHOCYTES % (AUTO) 32.9 % (21.0-51.0); MEAN CORPUSCULAR HEMOGLOBIN 30.2 pg (27.0-33.0); MEAN CORPUSCULAR HGB CONC 33.3 g/dL (32.0-36.0); MEAN CORPUSCULAR VOLUME 90.9 fL (79-99); MONOCYTES # (AUTO) 0.4 K/uL (0.1-1.0); NEUTROPHILS # (AUTO) 5.2 K/uL (1.8-7.7); PLATELET COUNT (AUTO) 293 K/uL (130-400); WHITE BLOOD COUNT (AUTO) 8.9 K/uL (4.8-10.8)
[2023-12-01 23:50] LABS: POTASSIUM 3.4 mmol/L (3.5-5.1)
[2023-12-02] MEDS: 0.9% NACL 250ML 250 ML IV ONE (00:02)
[2023-12-02] MEDS: MORPHINE 2 MG SYG IVP ONE (00:03)
[2023-12-02] MEDS: ONDANSETRON 4MG INJ IVP ONE (01:37)
== END 2023-12-02 01:48 | disposition home or self-care (01) ==
LOC: EDH 22:38
DX: R10.13 Epigastric pain (principal); F41.9 Anxiety disorder, unspecified; R07.89 Other chest pain; I10 Essential (primary) hypertension; M19.90 Unspecified osteoarthritis, unspecified site; G45.9 Transient cerebral ischemic attack, unspecified; Z79.2 Long term (current) use of antibiotics; Z79.899 Other long term (current) drug therapy; Z90.710 Acquired absence of both cervix and uterus; Z86.59 Personal history of other mental and behavioral disorders; Z90.49 Acquired absence of other specified parts of digestive tract
CPT/HCPCS: 99285; 70450; 80048; 85025; 82948; 36415; 93005; 96374; 96375; J2270; J2405; J7050

== ENCOUNTER 2024-01-28 06:21 | Emergency (ER) | payer SELFPAY ==
[~2024-01-28] VITALS: Ht 167.6 cm; Wt 86.2 kg
[2024-01-28 06:43] VITALS: BP_DIAS 71
[2024-01-28 07:07] LABS: RAPID GROUP A STREP negative (NEGATIVE)
[2024-01-28 07:13] LABS: SARS-CoV-2, RNA, NAAT NEGATIVE SARS CoV-2 (NEGATIVE)
[2024-01-28 07:16] LABS: INFLUENZA TYPE A Negative For Type A (NEGATIVE); INFLUENZA TYPE B Negative For Type B (NEGATIVE)
[2024-01-28] MEDS ORDERED: AZIT250T9 PO (07:25)
[2024-01-28] MEDS ORDERED: METH4TAB3 PO (07:25)
[2024-01-28] MEDS: DEXAMETHASONE SOD PHOSPHATE 4 MG/ML 1ML VIAL IM ONE (07:48)
[2024-01-28 08:43] VITALS: BP_SYST 132; PULSE 78; RESP 16; O2SAT 99
== END 2024-01-28 08:56 | disposition home or self-care (01) ==
LOC: EDH 06:21
DX: J06.9 Acute upper respiratory infection, unspecified (principal); F41.9 Anxiety disorder, unspecified; F32.A Depression, unspecified; I10 Essential (primary) hypertension; Z20.822 Contact with and (suspected) exposure to COVID-19; Z90.49 Acquired absence of other specified parts of digestive tract; Z90.710 Acquired absence of both cervix and uterus; Z79.899 Other long term (current) drug therapy
CPT/HCPCS: 99283; 87635; 87880; 87804 ×2; 96372; J1100

== ENCOUNTER 2024-02-09 13:41 | Emergency (ER) | payer SELFPAY ==
[~2024-02-09] VITALS: Ht 162.6 cm; Wt 81.6 kg
[~2024-02-09 13:41] MED LIST changes: +AZIT250T9 PO; +METH4TAB3 PO
[2024-02-09 14:10] LABS: RAPID GROUP A STREP negative (NEGATIVE)
[2024-02-09 14:21] LABS: COVID19 (SARS ANTIGEN RAPID) PRESUMPTIVE NEGATIVE (NEGATIVE); INFLUENZA TYPE A Negative For Type A (NEGATIVE); INFLUENZA TYPE B Negative For Type B (NEGATIVE)
[2024-02-09 15:37] VITALS: BP 134/68; PULSE 64; RESP 18; O2SAT 98
[2024-02-09] MEDS: dexaMETHasone SOD PHOSPHATE 4 MG/ML 1ML VIAL IV ONE (16:26)
[2024-02-09] MEDS ORDERED: LORA10TA7 PO (16:33)
[2024-02-09] MEDS ORDERED: AMOX1TAB16 PO (16:33)
== END 2024-02-09 17:00 | disposition home or self-care (01) ==
LOC: EDH 13:41
DX: J01.90 Acute sinusitis, unspecified (principal); I10 Essential (primary) hypertension; F31.9 Bipolar disorder, unspecified; F41.9 Anxiety disorder, unspecified; Z20.822 Contact with and (suspected) exposure to COVID-19; Z79.899 Other long term (current) drug therapy; Z90.49 Acquired absence of other specified parts of digestive tract; Z90.710 Acquired absence of both cervix and uterus; Z98.890 Other specified postprocedural states
CPT/HCPCS: 99284; 96374; 71045; 87426; 87880; 87804 ×2; J1100

== ENCOUNTER 2024-02-23 03:18 | Emergency (ER) | payer SELFPAY ==
[~2024-02-23] VITALS: Ht 162.6 cm; Wt 85.3 kg
[~2024-02-23 03:18] MED LIST changes: +AMOX1TAB16 PO; +LORA10TA7 PO
[2024-02-23 03:40] LABS: APPEARANCE,URINE CLEAR (CLEAR); BILIRUBIN,URINE NEGATIVE (NEGATIVE); COLOR,URINE LIGHT-YELLOW (YELLOW); GLUCOSE, URINE (UA) NEGATIVE (NEGATIVE); KETONES,URINE NEGATIVE (NEGATIVE); LEUKOCYTE ESTERASE ,URINE NEGATIVE Leu/uL (NEGATIVE); NITRATE,URINE NEGATIVE (NEGATIVE); OCCULT BLOOD,URINE SMALL (NEGATIVE); PH,URINE 5.5 (5.0-8.0); PROTEIN,URINE NEGATIVE (NEGATIVE); UROBILINOGEN,URINE 0.2 mg/dL (0.2-1.0)
[2024-02-23 03:41] LABS: ADD UA MICROSCOPIC YES
[2024-02-23 03:42] LABS: BACTERIA,URINE RARE /HPF (None Seen); MUCUS,URINE RARE LPF (None Seen); RBC,URINE 0-1 /HPF (0-1); SQUAMOUS EPITHELIAL CELL,UR RARE /HPF (0-2); WBC,URINE 0-1 /HPF (0-1)
[2024-02-23 03:50] LABS: RAPID GROUP A STREP negative (NEGATIVE)
[2024-02-23 03:55] LABS: SARS-CoV-2, RNA, NAAT NEGATIVE SARS CoV-2 (NEGATIVE)
[2024-02-23 03:59] LABS: INFLUENZA TYPE A Negative For Type A (NEGATIVE); INFLUENZA TYPE B Negative For Type B (NEGATIVE)
[2024-02-23] MEDS ORDERED: FLUT9.9S NS (04:29)
[2024-02-23] MEDS ORDERED: FEXO1TAB5 PO (04:29)
[2024-02-23 04:44] VITALS: BP 109/63; PULSE 62; RESP 18; TEMP 97.6; O2SAT 100
== END 2024-02-23 04:47 | disposition home or self-care (01) ==
LOC: EDH 03:18
DX: J01.90 Acute sinusitis, unspecified (principal); M79.18 Myalgia, other site; M06.9 Rheumatoid arthritis, unspecified; F31.9 Bipolar disorder, unspecified; Z20.822 Contact with and (suspected) exposure to COVID-19; Z79.899 Other long term (current) drug therapy; Z90.710 Acquired absence of both cervix and uterus; Z90.721 Acquired absence of ovaries, unilateral; Z98.890 Other specified postprocedural states
CPT/HCPCS: 81001; 87635; 87804; 87880

== ENCOUNTER 2024-04-05 16:21 | Emergency (ER) | payer SELFPAY ==
[~2024-04-05] VITALS: Ht 162.6 cm; Wt 81.6 kg
[~2024-04-05 16:21] MED LIST changes: +FEXO1TAB5 PO; +FLUT9.9S NS
[2024-04-05] MEDS: acetaMINOPHEN 500 MG TABLET PO ONE (17:22)
[2024-04-05 17:53] LABS: COVID19 (SARS ANTIGEN RAPID) PRESUMPTIVE NEGATIVE (NEGATIVE); INFLUENZA TYPE A Negative For Type A (NEGATIVE); INFLUENZA TYPE B Negative For Type B (NEGATIVE)
[2024-04-05 18:12] LABS: RAPID GROUP A STREP negative (NEGATIVE)
[2024-04-05] MEDS ORDERED: AMOX1TAB16 PO (18:29)
[2024-04-05] MEDS ORDERED: IBUP-2077 PO (18:29)
[2024-04-05 18:33] VITALS: BP 117/79; PULSE 72; RESP 20; TEMP 98.8; O2SAT 98
== END 2024-04-05 18:35 | disposition home or self-care (01) ==
LOC: EDH 16:21
DX: J02.9 Acute pharyngitis, unspecified (principal); Z20.822 Contact with and (suspected) exposure to COVID-19; R50.9 Fever, unspecified; K21.9 Gastro-esophageal reflux disease without esophagitis; Z98.890 Other specified postprocedural states; Z90.710 Acquired absence of both cervix and uterus; Z90.721 Acquired absence of ovaries, unilateral
CPT/HCPCS: 87426; 87804; 87880

== ENCOUNTER 2024-05-08 15:58 | Emergency (ER) | payer SELFPAY ==
[~2024-05-08] VITALS: Ht 162.6 cm; Wt 81.6 kg
[~2024-05-08 15:58] MED LIST changes: +IBUP-2077 PO
[2024-05-08 16:32] VITALS: BP 146/85; PULSE 65; RESP 16; TEMP 98.4; O2SAT 97
--- NOTE | 2024-05-08 16:41 | ERN ---
ED Note History of Present Illness Stated Complaint: LIGHT HEADED, CHILLS, TROUBLE SWALLOWING, BODY ACH Chief Complaint: Cough Time Seen by MD: 16:02 Dictation: Patient is a 48-year-old female with past medical history of anxiety, bipolar disorder came to the ED with a chief complaint of headaches, cough, blurred vision, nausea, chills, sore throat since 4 days and diarrhea , dysphagia, odynophagia since 1 day. Allergies: Coded Allergies: No Known Allergies (Unverified Allergy, Unknown, 11/15/18) Home Meds Active Scripts Fluticasone Propionate (Flonase Nasal [place]) 50 Mcg/Actuation [place], 50 MCG NASAL QID, #1 SPRAY Prov:KINGA NORRIS MD 05/08/24 Amoxicillin (Amoxicillin) 500 Mg Tablet, 500 MG PO TID for 7 Days, #21 TAB Prov:KINGA NORRIS MD 05/08/24 Ibuprofen (Ibuprofen 800 mg Tab) 800 Mg Tab, 800 MG PO Q8H PRN for fever or pain, #30 TAB 0 Refills Prov:YANDEL CASTILLO NP 04/05/24 Amoxicillin/Potassium Clav (Amox Tr-K Clv 875-125 mg Tab) 875 Mg-125 Mg Tablet, 1 EACH PO BID for 10 Days, #20 TAB 0 Refills Prov:YANDEL CASTILLO NP 04/05/24 Fexofenadine/Pseudoephedrine (Erma-D 12 Hour Tablet) 60 Mg-120 Mg Tab.er.12h, 1 EACH PO DAILY for 10 Days, #10 TAB Prov:RENO WILLIS MD 02/23/24 Fluticasone Propionate (Flonase Allergy Relief) 50 Mcg/Actuation [place].susp, 9.9 ML NS TID for 14 Days, #1 BOTTLE Prov:RENO WILLIS MD 02/23/24 Amoxicillin/Potassium Clav (Amox Tr-K Clv 875-125 mg Tab) 875 Mg-125 Mg Tablet, 1 EACH PO BID for 7 Days, #14 TAB Prov:ASYA SMITH 02/09/24 Loratadine (Loratadine) 10 Mg Tablet, 10 MG PO DAILY for 30 Days, #30 TAB Prov:ASYA SMITH 02/09/24 Methylprednisolone (Medrol) 4 Mg Tab.ds.pk, 4 MG PO AD, #1 PACK Prov:CHELSEA ENGLAND 01/28/24 Azithromycin (Azithromycin) 250 Mg Tablet, 250 MG PO DAILY for 5 Days, #5 TAB Prov:CHELSEA ENGLAND 01/28/24 Cephalexin (Cephalexin) 500 Mg Tablet, 500 MG PO TID for 10 Days, #30 TAB Prov:RIGO MIKE MD 03/30/23 Reported Medications [Turmeric] No Conflict Check, 1 TAB PO AM 09/17/22 [Mvi] No Conflict Check, 1 TAB PO AM 09/17/22 [Vitamin D] No Conflict Check, 1 TAB PO AM 09/17/22 [Fish Oil] No Conflict Check, 1 TAB PO AM 09/17/22 Acetaminophen with Codeine (Acetaminophen-Cod #3 Tablet) 1 Each Tablet, 1 EACH PO Q4H PRN for PAIN, TAB 09/17/22 Buspirone HCl (Buspar) 15 Mg Tab, 15 MG PO TID, TAB 04/28/22 Bupropion HCl (Wellbutrin Sr) 150 Mg Srtab, 150 MG PO DAILY for BIPOLAR, TAB.SR 04/28/22 Carbamazepine (Tegretol) 200 Mg Tablet, 200 MG PO AM for BIPOLAR, TAB 04/28/22 Past Medical History Past Medical History: Bipolar, GERD, Other Additional Past Medical Hx: HX OF RHEUMATOID ARTHRITIS; HX OF RAYNAUD'S SYNDROME Surgical History: Hysterectomy Surgical History Other: LIPOMA REMOVAL LOWER BACK, LIP SURGERY, RT OVARY REMOVED Family History: Negative Social History: Negative, Lives with family, Other History: Not Applicable Review of System Dictation Constitutional-no weight loss/gain, fever. Patient had chills Eyes-no injury, pain, redness and discharge. Patient had blurred vision ENT-no injury, pain, swelling. Patient has ear pain, difficulty swallowing Cardiovascular no chest pain, palpitations, edema Respiratory no shortness of breath, cough, wheezing Abdomen/GI-no abdominal pain , constipation, vomiting. Patient have nausea, diarrhea Back no injury and pain Genitourinary no injury, bleeding and discharge Musculoskeletal/extremities no injury, deformity Skin no rash, discoloration Neuro-no weakness, numbness, tingling, seizures, tremors. Patient has headaches Psych-no suicidal ideation, homicidal ideation, hallucinations, depression, memory loss. Patient has anxiety and bipolar disorder Initial Vital Sign VS Vital Signs Date Time Temp Pulse Resp B/P (MAP) Pulse Ox O2 Delivery O2 Flow Rate FiO2 05/08/24 16:21 98.4 66 16 146/89 97 Room Air 0 05/08/24 16:32 21 Physical Exam Dictation General-patient is awake alert and oriented Head/neck-normocephalic, atraumatic Eyes-PERRL, EOMI, vision at baseline Neck-trachea midline, supple, no nuchal rigidity Cardiovascular-RRR, normal S1/S2, no MRG is, no JVD Respiratory-no distress, wheezing, rales, rhonchi Abdomen-no tenderness, guarding, soft, nondistended Skin warm, dry, normal turgor, no rash Musculoskeletal/extremities pulses equal, no cyanosis Neuro-COA X 4, GCS 15, strength 5/5, CN 2-12 intact Psych-normal behavior, mood and affect normal Results (Laboratory/Radiology) Laboratory/Radiology Laboratory Tests Test 05/08/24 16:26 Influenza Type A Antigen Negative For Type A Influenza Type B Antigen Negative For Type B SARS-CoV-2, RNA, NAAT NEGATIVE SARS CoV-2 Group A Streptococcus Rapid negative (NEGATIVE) ED Course ED Course Orders Procedure Category Date Status Time Rapid (Group A Strep) LAB 05/08/24 Complete 16:24 Influenza Type A & B, LAB 05/08/24 Complete Rapid 16:24 Covid Rna Naat LAB 05/08/24 Complete 16:24 Dexamethasone 4mg/Ml PHA 05/08/24 Complete 1ml Vial (Dexametha 17:00 Current Medications Medications (Trade) Dose Ordered Sig/[place] Route PRN Reason Start Time Stop Time Status Last Admin Dose Admin Dexamethasone Sodium Phosphate (dexaMETHasone 4MG/ML 1ML VIAL) 4 mg ONCE ONCE IM 05/08/24 17:00 05/08/24 17:01 DC 05/08/24 17:04 Vital Signs Date Time Temp Pulse Resp B/P (MAP) Pulse Ox O2 Delivery O2 Flow Rate FiO2 05/08/24 16:32 98.4 65 16 146/85 97 Room Air* 0 21 05/08/24 16:21 98.4 66 16 146/89 97 Room Air 0 Medical Decision Making MDM INITIAL IMPRESSION Initial history and physical concerning for upper respiratory tract infection, influenza Contributing medical problems: None I have reviewed the triage nursing notes and vital signs. Initial plan: Laboratory evaluation . DATA REVIEW I have reviewed additional NN, repeat VS, and monitoring where indicated. Heart rate, blood pressure, and O2 saturation are acceptable. . ED COURSE Interventions: Labs Reassessment: Not indicated rate DISPOSITION Final diagnostic impression: Upper respiratory infection I discussed my findings, clinical impression and treatment recommendations with the patient I have reviewed the social factors contributing to the patient's presentation and disposition planning. [ ] My final plan for disposition was made based upon -mild risk of complications and potential morbidity of the patient's condition. -Discussion with the patient regarding management options. Plan to discharge the patient with oral antibiotics and nasal decongestants DX & DISP Disposition: Discharge Departure Impression: Primary Impression: Upper respiratory infection Condition: Stable Scripts Fluticasone Propionate (Flonase Nasal [place]) 50 Mcg/Actuation [place] 50 MCG NASAL QID, #1 SPRAY Prov: KINGA NORRIS MD 05/08/24 Amoxicillin (Amoxicillin) 500 Mg Tablet 500 MG PO TID for 7 Days, #21 TAB Prov: KINGA NORRIS MD 05/08/24 Additional Instructions: Come back to the ER if you have any acute or emergency symptoms to prevent dehydration, drink plenty of fluids. Choose water and other clear liquids until you feel better. If you have kidney, heart, or liver disease and have to limit fluids, talk with your doctor before you increase the amount of fluids you drink. Get plenty of rest. take medications as prescribed Use saline (saltwater) nasal washes to help keep your nasal passages open and wash out mucus and allergens. You can buy saline nose sprays at a grocery store or drugstore. Do not smoke or allow others to smoke around you. If you need help quitting, talk to your doctor about stop-smoking programs and medicines. These can increase your chances of quitting for good. Referrals: SELF,REFERRAL (PCP) Time of Disposition: 17:14 I have reviewed I have reviewed the case I WAS PRESENT AND PARTICIPATED IN THE CARE OF THIS PATIENT ALONGSIDE WITH THE RESIDENT PHYSICIAN. I HAVE REVIEWED AND PERSONALLY MADE AND APPROVED THE MANAGEMENT PLAN THAT IS DOCUMENTED IN THE NOTE BY MYSELF WITH THE RESIDENT PHYSICIAN. I ACKNOWLEDGED FOR RESPONSIBILITY FOR THE PATIENT'S MANAGEMENT PLAN. I have examined patient KINGA NORRIS MD May 08, 2024 16:41 RENO WILLIS MD May 09, 2024 07:45
[2024-05-08 16:53] LABS: RAPID GROUP A STREP negative (NEGATIVE)
[2024-05-08 16:54] LABS: SARS-CoV-2, RNA, NAAT NEGATIVE SARS CoV-2 (NEGATIVE)
[2024-05-08 17:03] LABS: INFLUENZA TYPE A Negative For Type A (NEGATIVE); INFLUENZA TYPE B Negative For Type B (NEGATIVE)
[2024-05-08] MEDS: dexaMETHasone SOD PHOSPHATE 4 MG/ML 1ML VIAL IM ONE (17:04)
[2024-05-08] MEDS ORDERED: FLUT16H NASAL (17:12)
[2024-05-08] MEDS ORDERED: AMOX500T2 PO (17:12)
== END 2024-05-08 17:14 | disposition home or self-care (01) ==
LOC: EDH 15:58
DX: J06.9 Acute upper respiratory infection, unspecified (principal); K21.9 Gastro-esophageal reflux disease without esophagitis; Z79.899 Other long term (current) drug therapy; Z90.710 Acquired absence of both cervix and uterus; Z90.721 Acquired absence of ovaries, unilateral; Z20.822 Contact with and (suspected) exposure to COVID-19
CPT/HCPCS: 99283; 87635; 87880; 87804 ×2; 96372; J1100

== ENCOUNTER 2024-06-08 13:44 | Emergency (ER) | payer SELFPAY ==
[~2024-06-08] VITALS: Ht 162.6 cm; Wt 81.6 kg
[~2024-06-08 13:44] MED LIST changes: +AMOX500T2 PO; +FLUT16H NASAL
--- NOTE | 2024-06-08 14:12 | ERN ---
ED Note History of Present Illness Stated Complaint: RIGHT ARM NUMBNESS Chief Complaint: Right arm numbness Time Seen by MD: 14:11 Dictation: Patient is a 48-year-old female with a past medical history of bipolar disorder, GERD, rheumatoid arthritis who presents to the ED for right arm numbness and discoloration. Patient states her right hand is cold and numb in her right upper arm is weak. Patient denies any injuries or heavy lifting. She denies chest pain, shortness of breath, pain elsewhere. Patient states she has had Raynaud's for many years but is no treatment. She was also diagnosed with rheumatoid arthritis but isn't on treatment. Allergies: Coded Allergies: No Known Allergies (Unverified Allergy, Unknown, 11/15/18) Home Meds Active Scripts Fluticasone Propionate (Flonase Nasal [place]) 50 Mcg/Actuation [place], 50 MCG NASAL QID, #1 SPRAY Prov:KINGA NORRIS MD 05/08/24 Amoxicillin (Amoxicillin) 500 Mg Tablet, 500 MG PO TID for 7 Days, #21 TAB Prov:KINGA NORRIS MD 05/08/24 Ibuprofen (Ibuprofen 800 mg Tab) 800 Mg Tab, 800 MG PO Q8H PRN for fever or pain, #30 TAB 0 Refills Prov:YANDEL CASTILLO NP 04/05/24 Amoxicillin/Potassium Clav (Amox Tr-K Clv 875-125 mg Tab) 875 Mg-125 Mg Tablet, 1 EACH PO BID for 10 Days, #20 TAB 0 Refills Prov:YANDEL CASTILLO NP 04/05/24 Fexofenadine/Pseudoephedrine (Erma-D 12 Hour Tablet) 60 Mg-120 Mg Tab.er.12h, 1 EACH PO DAILY for 10 Days, #10 TAB Prov:RENO WILLIS MD 02/23/24 Fluticasone Propionate (Flonase Allergy Relief) 50 Mcg/Actuation [place].susp, 9.9 ML NS TID for 14 Days, #1 BOTTLE Prov:RENO WILLIS MD 02/23/24 Amoxicillin/Potassium Clav (Amox Tr-K Clv 875-125 mg Tab) 875 Mg-125 Mg Tablet, 1 EACH PO BID for 7 Days, #14 TAB Prov:ASYA SMITH 02/09/24 Loratadine (Loratadine) 10 Mg Tablet, 10 MG PO DAILY for 30 Days, #30 TAB Prov:ASYA SMITH 02/09/24 Methylprednisolone (Medrol) 4 Mg Tab.ds.pk, 4 MG PO AD, #1 PACK Prov:CHELSEA ENGLAND 01/28/24 Azithromycin (Azithromycin) 250 Mg Tablet, 250 MG PO DAILY for 5 Days, #5 TAB Prov:CHELSEA ENGLAND 01/28/24 Cephalexin (Cephalexin) 500 Mg Tablet, 500 MG PO TID for 10 Days, #30 TAB Prov:RIGO MIKE MD 03/30/23 Reported Medications [Turmeric] No Conflict Check, 1 TAB PO AM 09/17/22 [Mvi] No Conflict Check, 1 TAB PO AM 09/17/22 [Vitamin D] No Conflict Check, 1 TAB PO AM 09/17/22 [Fish Oil] No Conflict Check, 1 TAB PO AM 09/17/22 Acetaminophen with Codeine (Acetaminophen-Cod #3 Tablet) 1 Each Tablet, 1 EACH PO Q4H PRN for PAIN, TAB 09/17/22 Buspirone HCl (Buspar) 15 Mg Tab, 15 MG PO TID, TAB 04/28/22 Bupropion HCl (Wellbutrin Sr) 150 Mg Srtab, 150 MG PO DAILY for BIPOLAR, TAB.SR 04/28/22 Carbamazepine (Tegretol) 200 Mg Tablet, 200 MG PO AM for BIPOLAR, TAB 04/28/22 Past Medical History Past Medical History: Bipolar, GERD, Other Additional Past Medical Hx: HX OF RHEUMATOID ARTHRITIS; HX OF RAYNAUD'S SYNDROME Surgical History: Hysterectomy Surgical History Other: LIPOMA REMOVAL LOWER BACK, LIP SURGERY, RT OVARY REMOVED Family History: Negative Social History: Negative, Lives with family, Other History: Not Applicable Review of System Dictation Constitutional-no chills, weight loss/gain, fever Eyes-no injury, pain, redness and discharge ENT-no injury, pain, swelling Cardiovascular no chest pain, palpitations, edema Respiratory no shortness of breath, cough, wheezing Abdomen/GI-no abdominal pain, diarrhea, constipation, vomiting, nausea Back no injury and pain Genitourinary no injury, bleeding and discharge Musculoskeletal/extremities no injury, deformity. Skin no rash. Fingers on right hand pale. Neuro-no headache, weakness, seizures, tremors. Numbness and tingling in right hand. Psych-no suicidal ideation, homicidal ideation, hallucinations, depression, anxiety, memory loss Initial Vital Sign VS Vital Signs Date Time Temp Pulse Resp B/P (MAP) Pulse Ox O2 Delivery O2 Flow Rate FiO2 06/08/24 13:47 97.5 62 16 155/100 99 Room Air 0 06/08/24 16:04 21 Physical Exam Dictation VITAL SIGNS: Reviewed. GENERAL APPEARANCE: Alert, oriented x3, no acute distress, obese. HEAD AND FACE: Non-traumatic. EYES: PERRL, pink conjunctivas, eyelid no trauma, anterior chamber clear. EARS: [place]inn[place] intact and no signs of trauma or erythema. Ear canals clear and no discharge. TMs no erythema. NOSE: No discharge, no bleeding. OROPHARYNX: Mouth normal, teeth no caries, tongue pink. Pharynx clear, no erythema. Tonsils no exudates, no abscesses noted. Mucous membrane moist. NECK: Supple, non-tender, no thyromegaly, no masses, no JVD, no bruits. BREAST: Deferred. CHEST: No tenderness, no crepitus, no paradoxical movement, no retractions. LUNGS: Clear, well-ventilated, symmetric, no rales, no wheezing, no rhonchi, no stridor, good breath sounds bilaterally. HEART: Regular rate, regular rhythm, no murmur, no gallops. VASCULAR: No peripheral edema. Pale fingers on right ABDOMEN: Soft, positive bowel sounds, nondistended, no guarding, nontender, no rebound, no masses no hepatomegaly, no splenomegaly, no Smith's sign, no hernias. RECTAL: Swelling, lesion, possible pilonidal cyst GENITAL: Deferred. NEUROLOGICAL: Normal speech, gross motor function intact, gross sensory function intact. MUSCULOSKELETAL: Neck nontender, full range of motion, back nontender, full range of motion. 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 Negative Tinel's sign. EXTREMITIES: Nontender, full range of motion. SKIN: Color pink, dry, no turgor, no rash, no lacerations, no abrasions, no contusions. LYMPHATICS: Deferred. Results (Laboratory/Radiology) Laboratory/Radiology Laboratory Tests Test 06/08/24 14:11 White Blood Count 7.6 K/uL (4.8-10.8) Red Blood Count 4.68 MIL/uL (4.00-5.50) Hemoglobin 14.0 g/dL (12.0-16.0) Hematocrit 43.1 % (36-48) Mean Corpuscular Volume 92.1 fL (79-99) Mean Corpuscular Hemoglobin 29.9 pg (27.0-33.0) Mean Corpuscular Hemoglobin Concent 32.5 g/dL (32.0-36.0) Red Cell Distribution Width 13.2 % (11.0-15.5) Platelet Count 274 K/uL (130-400) Mean Platelet Volume 10.9 fL (7.5-10.5) H Immature Granulocyte % (Auto) 0.3 % (0-1) Neutrophils (%) (Auto) 59.7 % (40.0-77.0) Lymphocytes (%) (Auto) 30.4 % (21.0-51.0) Monocytes (%) (Auto) 6.1 % (3.0-13.0) Eosinophils (%) (Auto) 3.0 % (0.0-8.0) Basophils (%) (Auto) 0.5 % (0.0-5.0) Neutrophils # (Auto) 4.5 K/uL (1.8-7.7) Lymphocytes # (Auto) 2.3 K/uL (1.0-4.8) Monocytes # (Auto) 0.5 K/uL (0.1-1.0) Eosinophils # (Auto) 0.23 K/uL (0.00-0.70) Basophils # (Auto) 0.04 K/uL (0.00-0.20) Absolute Immature Granulocyte (auto 0.02 K/uL (0-1) Nucleated Red Blood Cells 0.0 % (0.0-0.19) Sodium Level 139 mmol/L (136-145) Potassium Level 3.8 mmol/L (3.5-5.1) Chloride Level 104 mmol/L (101-111) Carbon Dioxide Level 30 mmol/L (21-32) Blood Urea Nitrogen 24 mg/dL (7-18) H Creatinine 0.9 mg/dL (0.5-1.0) Glomerular Filtration Rate Calc 78 mL/min (>90) Random Glucose 99 mg/dL (70-105) Total Calcium 8.9 mg/dL (8.5-10.1) Magnesium Level 2.10 mg/dL (1.80-2.40) Total Creatine Kinase 65 U/L (21-232) # ED Course ED Course Orders Procedure Category Date Status Time Cbc With Differential LAB 06/08/24 Complete 13:47 Basic Metabolic Panel LAB 06/08/24 Complete 13:47 Creatine Kinase, Total LAB 06/08/24 Complete 13:47 Magnesium LAB 06/08/24 Complete 13:47 Ketorolac PHA 06/08/24 Complete Tromethamine 30mg/Ml 16:00 Current Medications Medications (Trade) Dose Ordered Sig/[place] Route PRN Reason Start Time Stop Time Status Last Admin Dose Admin Ketorolac Tromethamine (toRADol) 30 mg ONCE ONCE IM 06/08/24 16:00 06/08/24 16:01 DC 06/08/24 16:00 Vital Signs Date Time Temp Pulse Resp B/P (MAP) Pulse Ox O2 Delivery O2 Flow Rate FiO2 06/08/24 16:04 97.9 62 16 147/88 99 Room Air* 0 21 06/08/24 13:47 97.5 62 16 155/100 99 Room Air 0 Medical Decision Making MDM MDM INITIAL IMPRESSION Initial history and physical concerning for Raynaud's Contributing medical problems: Rheumatoid arthritis I have reviewed the triage nursing notes and vital signs. Initial plan: Laboratory evaluation DATA REVIEW I have reviewed additional NN, repeat VS, and monitoring where indicated. Heart rate, blood pressure, and O2 saturation are acceptable. ED COURSE Interventions: Reassessment: DISPOSITION Final diagnostic impression: I discussed my findings, clinical impression and treatment recommendations with the patient. My final plan for disposition was made based upon -mild risk of complications and potential morbidity of the patient's condition. -Discussion with the patient regarding management options. [diposition] DX & DISP Disposition: Discharge Departure Impression: Primary Impression: Cold intolerance of hand Additional Impressions: Arthritis, Numbness and tingling of right arm Condition: Stable Additional Instructions: Follow up with Rheumatology. Keep your home at a comfortable temperature, and avoid cold exposure. Wear gloves and warm shoes, and avoid getting wet. Manage stress. Regular exercise can improve circulation and reduce stress. A healthy diet can help with stress and blood flow. Moisture as her hands and feet daily to prevent cracked skin. FOLLOW-UP WITH PRIMARY CARE PROVIDER IN 1 TO 2 DAYS. TAKE MEDICATIONS DIRECTED HERE IN THE EMERGENCY ROOM. OKAY TO CONTINUE HOME MEDICATIONS UNLESS OTHERWISE DISCUSSED DURING YOUR VISIT IN THE EMERGENCY ROOM TODAY. RETURN TO YOUR NEAREST EMERGENCY ROOM IF SYMPTOMS WORSEN OR IF THERE IS NO IMPROVEMENT. CALL 911 IF YOU NEED IMMEDIATE ASSISTANCE. TAKE TYLENOL [id number] NEEDED AND IF NO CONTRAINDICATIONS ARE PRESENT. INCREASE ORAL HYDRATION. A WOUND CULTURE OR URINE CULTURE WAS ORDERED HERE IN THE EMERGENCY ROOM DEPARTMENT PLEASE FOLLOW-UP WITH PRIMARY CARE PROVIDER AND ADVISE THEM TO GET REPEAT PORTS FROM OUR FACILITY. IF YOU HAD ANY DAVID WRAP/SPLINTS THAT WERE APPLIED HERE, PLEASE DO NOT REMOVE THEM UNTIL YOU SEE YOUR PRIMARY CARE OR SPECIALTY. Referrals: SELF,REFERRAL (PCP) SANDY JOSEPH MD Time of Disposition: 14:59 I have reviewed I have reviewed the case I WAS PRESENT AND PARTICIPATED IN THE CARE OF THIS PATIENT ALONGSIDE WITH THE RESIDENT PHYSICIAN. I HAVE REVIEWED AND PERSONALLY MADE AND APPROVED THE MANAGEMENT PLAN THAT IS DOCUMENTED IN THE NOTE BY MYSELF WITH THE RESIDENT PHYSICIAN. I ACKNOWLEDGED FOR RESPONSIBILITY FOR THE PATIENT'S MANAGEMENT PLAN. I have examined patient KAYY HAZEL MD Jun 08, 2024 14:12 RENO WILLIS MD Jun 11, 2024 08:01
[2024-06-08 14:29] LABS: BASOPHILS # (AUTO) 0.04 K/uL (0.00-0.20); BASOPHILS % (AUTO) 0.5 % (0.0-5.0); EOSINOPHILS # (AUTO) 0.23 K/uL (0.00-0.70); HEMATOCRIT 43.1 % (36-48); IMMATURE GRANULOCYTE ABSOLUTE 0.02 K/uL (0-1); LYMPHOCYTES # (AUTO) 2.3 K/uL (1.0-4.8); LYMPHOCYTES % (AUTO) 30.4 % (21.0-51.0); MEAN CORPUSCULAR HEMOGLOBIN 29.9 pg (27.0-33.0); MEAN CORPUSCULAR HGB CONC 32.5 g/dL (32.0-36.0); MEAN CORPUSCULAR VOLUME 92.1 fL (79-99); MONOCYTES # (AUTO) 0.5 K/uL (0.1-1.0); MONOCYTES % (AUTO) 6.1 % (3.0-13.0); NEUTROPHILS # (AUTO) 4.5 K/uL (1.8-7.7); NEUTROPHILS % (AUTO) 59.7 % (40.0-77.0); PLATELET COUNT (AUTO) 274 K/uL (130-400); RED BLOOD CELL COUNT(AUTO) 4.68 MIL/uL (4.00-5.50); RED CELL DISTRIBUTION WIDTH 13.2 % (11.0-15.5); WHITE BLOOD COUNT (AUTO) 7.6 K/uL (4.8-10.8)
[2024-06-08 14:40] LABS: CREATININE 0.9 mg/dL (0.5-1.0); POTASSIUM 3.8 mmol/L (3.5-5.1)
[2024-06-08 14:45] LABS: MAGNESIUM 2.1 mg/dL (1.80-2.40)
[2024-06-08] MEDS: ketOROlac 30MG VIAL (30MG/ML) IM ONE (16:00)
[2024-06-08 16:04] VITALS: BP 147/88; PULSE 62; RESP 16; TEMP 97.9; O2SAT 99
== END 2024-06-08 16:20 | disposition home or self-care (01) ==
LOC: EDH 13:44
DX: R20.0 Anesthesia of skin (principal); R20.2 Paresthesia of skin; M06.9 Rheumatoid arthritis, unspecified; K21.9 Gastro-esophageal reflux disease without esophagitis; Z79.899 Other long term (current) drug therapy; Z90.710 Acquired absence of both cervix and uterus; Z90.721 Acquired absence of ovaries, unilateral
CPT/HCPCS: 99283; 82550; 83735; 80048; 85025; 36415; 96372; J1885

== ENCOUNTER → 2024-07-03 | Emergency (ER) | payer SELFPAY ==
[~2024-07-03] VITALS: Ht 162.6 cm; Wt 85.3 kg
[2024-07-03 19:58] VITALS: BP 129/89; PULSE 82; RESP 20; TEMP 99.2
--- NOTE | 2024-07-03 20:58 | ERN ---
ED Note History of Present Illness Stated Complaint: RASH ON BACK Chief Complaint: Skin Rash/Abscess Time Seen by MD: 19:52 Dictation: 8:20 p.m.-checked in the lobby for the patient. No answer. Also checked in the fast track pool area-no answer 8:50 p.m. again checked in the lobby without any answer I have looked for her again and again in the lobby area in front of the hospital also without any answer Allergies: Coded Allergies: No Known Allergies (Unverified Allergy, Unknown, 11/15/18) Home Meds Active Scripts Fluticasone Propionate (Flonase Nasal [place]) 50 Mcg/Actuation [place], 50 MCG NASAL QID, #1 SPRAY Prov:KINGA NORRIS MD 05/08/24 Amoxicillin (Amoxicillin) 500 Mg Tablet, 500 MG PO TID for 7 Days, #21 TAB Prov:KINGA NORRIS MD 05/08/24 Ibuprofen (Ibuprofen 800 mg Tab) 800 Mg Tab, 800 MG PO Q8H PRN for fever or pain, #30 TAB 0 Refills Prov:YANDEL CASTILLO NP 04/05/24 Amoxicillin/Potassium Clav (Amox Tr-K Clv 875-125 mg Tab) 875 Mg-125 Mg Tablet, 1 EACH PO BID for 10 Days, #20 TAB 0 Refills Prov:YANDEL CASTILLO NP 04/05/24 Fexofenadine/Pseudoephedrine (Erma-D 12 Hour Tablet) 60 Mg-120 Mg Tab.er.12h, 1 EACH PO DAILY for 10 Days, #10 TAB Prov:RENO WILLIS MD 02/23/24 Fluticasone Propionate (Flonase Allergy Relief) 50 Mcg/Actuation [place].susp, 9.9 ML NS TID for 14 Days, #1 BOTTLE Prov:RENO WILLIS MD 02/23/24 Amoxicillin/Potassium Clav (Amox Tr-K Clv 875-125 mg Tab) 875 Mg-125 Mg Tablet, 1 EACH PO BID for 7 Days, #14 TAB Prov:ASYA SMITH 02/09/24 Loratadine (Loratadine) 10 Mg Tablet, 10 MG PO DAILY for 30 Days, #30 TAB Prov:ASYA SMITH 8/22/24 Methylprednisolone (Medrol) 4 Mg Tab.ds.pk, 4 MG PO AD, #1 PACK Prov:CHELSEA ENGLAND 01/28/24 Azithromycin (Azithromycin) 250 Mg Tablet, 250 MG PO DAILY for 5 Days, #5 TAB Prov:CHELSEA ENGLAND 01/28/24 Cephalexin (Cephalexin) 500 Mg Tablet, 500 MG PO TID for 10 Days, #30 TAB Prov:RIGO MIKE MD 03/30/23 Reported Medications [Turmeric] No Conflict Check, 1 TAB PO AM 09/17/22 [Mvi] No Conflict Check, 1 TAB PO AM 09/17/22 [Vitamin D] No Conflict Check, 1 TAB PO AM 09/17/22 [Fish Oil] No Conflict Check, 1 TAB PO AM 09/17/22 Acetaminophen with Codeine (Acetaminophen-Cod #3 Tablet) 1 Each Tablet, 1 EACH PO Q4H PRN for PAIN, TAB 09/17/22 Buspirone HCl (Buspar) 15 Mg Tab, 15 MG PO TID, TAB 04/28/22 Bupropion HCl (Wellbutrin Sr) 150 Mg Srtab, 150 MG PO DAILY for BIPOLAR, TAB.SR 04/28/22 Carbamazepine (Tegretol) 200 Mg Tablet, 200 MG PO AM for BIPOLAR, TAB 04/28/22 Past Medical History Past Medical History: Anxiety, Bipolar, Depression Additional Past Medical Hx: HX OF RHEUMATOID ARTHRITIS; HX OF RAYNAUD'S SYNDROME Surgical History: Hysterectomy Surgical History Other: LIPOMA REMOVAL LOWER BACK, LIP SURGERY, RT OVARY REMOVED Family History: Negative Social History: Negative, Lives with family, Other History: Not Applicable Review of System Dictation Unable to obtain Initial Vital Sign VS Vital Signs Date Time Temp Pulse Resp B/P (MAP) Pulse Ox O2 Delivery O2 Flow Rate FiO2 07/03/24 19:58 99.1 82 20 129/89 98 Room Air Physical Exam Dictation Unable to do ED Course ED Course Vital Signs Date Time Temp Pulse Resp B/P (MAP) Pulse Ox O2 Delivery O2 Flow Rate FiO2 07/03/24 19:58 99.1 82 20 129/89 98 Room Air Medical Decision Making MDM Unable to do DX & DISP Disposition: Other(Comment) (Left without being seen) Departure Condition: Stable Additional Instructions: Patient left without being seen Referrals: SELF,REFERRAL (PCP) SHALOM JERONIMO MD Jul 03, 2024 20:58
--- NOTE | 2024-07-03 21:47 | NUR ---
CALLED IN LOBBY PATIENT NOT ANSWERING.
--- NOTE | 2024-07-03 22:00 | NUR ---
CALLED FOR PT IN LOBBY; NO RESPONSE; PT NOT FOUND IN LOBBY.
== END ==
LOC: EDH 19:19
DX: R21 Rash and other nonspecific skin eruption (principal); F31.9 Bipolar disorder, unspecified; F41.9 Anxiety disorder, unspecified; Z79.899 Other long term (current) drug therapy; M06.9 Rheumatoid arthritis, unspecified; Z90.710 Acquired absence of both cervix and uterus; Z98.890 Other specified postprocedural states; Z90.721 Acquired absence of ovaries, unilateral; Z53.21 Procedure and treatment not carried out due to patient leaving prior to being seen by health care provider

== ENCOUNTER 2024-07-19 15:54 | Emergency (ER) | payer SELFPAY ==
[~2024-07-19] VITALS: Ht 162.6 cm; Wt 84.8 kg
--- NOTE | 2024-07-19 16:27 | HMCIMG ---
Exam: NONCONTRAST CT BRAIN REASON: headache. COMPARISON: 12/01/2023 TECHNIQUE: Images are obtained from vertex to the skull base. The exam was performed without IV contrast. FINDINGS: There is normal appearing brain parenchyma. There are no focal mass lesions. There is is no evidence of intracranial hemorrhage or acute stroke. Ventricles and sulci appear normal. Posterior fossa and brainstem structures are unremarkable. Paranasal sinuses and remaining extracranial soft tissues appear normal as well. IMPRESSION: 1. Normal noncontrast CT brain. CT was performed with one or more following dose reduction techniques: automated exposure control, adjustment of the mA and kv according to patient's size, or use of a iterative reconstruction technique.
[2024-07-19 16:38] LABS: HEMATOCRIT 44.2 % (36-48); MEAN CORPUSCULAR HEMOGLOBIN 29.9 pg (27.0-33.0); MEAN CORPUSCULAR HGB CONC 33.3 g/dL (32.0-36.0); MEAN CORPUSCULAR VOLUME 89.8 fL (79-99); RED BLOOD CELL COUNT(AUTO) 4.92 MIL/uL (4.00-5.50); RED CELL DISTRIBUTION WIDTH 12.6 % (11.0-15.5); WHITE BLOOD COUNT (AUTO) 8.2 K/uL (4.8-10.8)
[2024-07-19 16:50] LABS: POTASSIUM 4.4 mmol/L (3.5-5.1)
[2024-07-19 16:56] LABS: ALBUMIN 3.6 g/dL (3.5-5.0); BILIRUBIN,TOTAL 0.2 mg/dL (0.2-1.0); TOTAL PROTEIN, SERUM 7.7 g/dL (6.0-8.3)
--- NOTE | 2024-07-19 19:28 | ERN ---
General Chief Complaint: Dizzy/Light Headed Stated Complaint: DIZZYNESS,BLURRY VISION Time Seen by MD: 15:56 History of Present Illness Initial Comments 48-year-old female who presents for multiple complaints including headache, dizziness, blurry vision, feeling of going crazy over the last week or so. She denies any fevers. She does report some sinus pressure. She denies any neck stiffness. She denies any focal neurologic deficits. Denies suicidal or homicidal ideation or auditory hallucinations. She reports that he has she has been more emotional than usual warm thinks this is related to something in her head. She denies alcohol or drug abuse. Medical history includes rheumatoid arthritis, Raynaud's syndrome, anxiety, bipolar, depression. Allergies: Coded Allergies: No Known Allergies (Unverified Allergy, Unknown, 11/15/18) Home Meds Active Scripts Fluticasone Propionate (Flonase Nasal [place]) 50 Mcg/Actuation [place], 50 MCG NASAL QID, #1 SPRAY Prov:KINGA NORRIS MD 05/08/24 Amoxicillin (Amoxicillin) 500 Mg Tablet, 500 MG PO TID for 7 Days, #21 TAB Prov:KINGA NORRIS MD 05/08/24 Ibuprofen (Ibuprofen 800 mg Tab) 800 Mg Tab, 800 MG PO Q8H PRN for fever or pain, #30 TAB 0 Refills Prov:YANDEL CASTILLO NP 04/05/24 Amoxicillin/Potassium Clav (Amox Tr-K Clv 875-125 mg Tab) 875 Mg-125 Mg Tablet, 1 EACH PO BID for 10 Days, #20 TAB 0 Refills Prov:YANDEL CASTILLO NP 04/05/24 Fexofenadine/Pseudoephedrine (Erma-D 12 Hour Tablet) 60 Mg-120 Mg Tab.er.12h, 1 EACH PO DAILY for 10 Days, #10 TAB Prov:RENO WILLIS MD 02/23/24 Fluticasone Propionate (Flonase Allergy Relief) 50 Mcg/Actuation [place].susp, 9.9 ML NS TID for 14 Days, #1 BOTTLE Prov:RENO WILLIS MD 02/23/24 Amoxicillin/Potassium Clav (Amox Tr-K Clv 875-125 mg Tab) 875 Mg-125 Mg Tablet, 1 EACH PO BID for 7 Days, #14 TAB Prov:ALMERAZ,ASYA PA 02/09/24 Loratadine (Loratadine) 10 Mg Tablet, 10 MG PO DAILY for 30 Days, #30 TAB Prov:ASYA SMITH 02/09/24 Methylprednisolone (Medrol) 4 Mg Tab.ds.pk, 4 MG PO AD, #1 PACK Prov:CHELSEA ENGLAND 01/28/24 Azithromycin (Azithromycin) 250 Mg Tablet, 250 MG PO DAILY for 5 Days, #5 TAB Prov:CHELSEA ENGLAND 01/28/24 Cephalexin (Cephalexin) 500 Mg Tablet, 500 MG PO TID for 10 Days, #30 TAB Prov:RIGO MIKE MD 03/30/23 Reported Medications [Turmeric] No Conflict Check, 1 TAB PO AM 09/17/22 [Mvi] No Conflict Check, 1 TAB PO AM 09/17/22 [Vitamin D] No Conflict Check, 1 TAB PO AM 09/17/22 [Fish Oil] No Conflict Check, 1 TAB PO AM 09/17/22 Acetaminophen with Codeine (Acetaminophen-Cod #3 Tablet) 1 Each Tablet, 1 EACH PO Q4H PRN for PAIN, TAB 09/17/22 Buspirone HCl (Buspar) 15 Mg Tab, 15 MG PO TID, TAB 04/28/22 Bupropion HCl (Wellbutrin Sr) 150 Mg Srtab, 150 MG PO DAILY for BIPOLAR, TAB.SR 04/28/22 Carbamazepine (Tegretol) 200 Mg Tablet, 200 MG PO AM for BIPOLAR, TAB 04/28/22 Past Medical History Past Medical History: Anxiety, Bipolar, Depression Medical History Other: HX OF RHEUMATOID ARTHRITIS; HX OF RAYNAUD'S SYNDROME Past Surgical History: Hysterectomy, Other Surgical History Other: LIPOMA REMOVAL LOWER BACK, LIP SURGERY, RT OVARY REMOVED Family History Family History: Negative Social History Social History: Negative, Lives with family, Other Female( History) History: Not Applicable ROS Dictation CONSTITUTIONAL: No chills, no fever, no weakness, no diaphoresis, no malaise. HEAD/FACE: No signs of trauma. EENT: No eye pain, no blurred vision, no tearing, no double vision, no ear pain, no ear discharge, no nose pain, no nasal congestion, no throat pain, no throat swelling, no mouth pain. RESPIRATORY: No cough, no orthopnea, no SOB, no stridor, no wheezing. CARDIOVASCULAR: No chest pain, no edema, no palpitations, no syncope. GASTROINTESTINAL/ABDOMINAL: No abdominal pain, no constipation, no diarrhea, no nausea, no vomiting. GENITOURINARY: No abnormal discharge, no dysuria, no frequent urination, no hematuria. No complaints of pain in the genitals. MUSCULOSKELETAL: No back pain, no gout, no joint pain, no joint swelling, no muscle pain, no muscle stiffness, no neck pain. INTEGUMENTARY: No change in color, no change in hair/nails, no dryness, no lesion, no lumps, no rash. NEUROLOGICAL/PSYCH: Headache dizziness and head fullness HEMATOLOGIC/LYMPHATIC: Not anemic, no history of blood clots, no apparent ble eding, no bruising, glands not swollen. All Systems Negative, Except as Noted. Physical Exam Physical Exam Dictation VITAL SIGNS: Reviewed. GENERAL APPEARANCE: Alert, oriented x3, no acute distress HEAD AND FACE: Non-traumatic. EYES: PERRL, pink conjunctivas, eyelid no trauma, anterior chamber clear. EARS: Pinnas intact and no signs of trauma or erythema. Ear canals clear and no discharge. TMs no erythema. NOSE: No discharge, no bleeding. OROPHARYNX: Mouth normal, teeth no caries, tongue pink. Pharynx clear, no erythema. Tonsils no exudates, no abscesses noted. Mucous membrane moist. NECK: Supple, non-tender, no thyromegaly, no masses, no JVD, no bruits. BREAST: Deferred. CHEST: No tenderness, no crepitus, no paradoxical movement, no retractions. LUNGS: Clear, well-ventilated, symmetric, no rales, no wheezing, no rhonchi, no stridor, good breath sounds bilaterally. HEART: Regular rate, regular rhythm, no murmur, no gallops. VASCULAR: No peripheral edema. ABDOMEN: Soft, positive bowel sounds, nondistended, no guarding, nontender, no rebound, no masses no hepatomegaly, no splenomegaly, no Smith's sign, no hernias. RECTAL: Deferred. GENITAL: Deferred. NEUROLOGICAL: Normal speech, gross motor function intact, gross sensory function intact. MUSCULOSKELETAL: Neck nontender, full range of motion, back nontender, full range of motion. EXTREMITIES: Nontender, full range of motion. SKIN: Color pink, dry, no turgor, no rash, no lacerations, no abrasions, no contusions. LYMPHATICS: Deferred. Results Laboratory and Microbiology Lab and Micro Result Laboratory Tests Test 07/19/24 16:30 White Blood Count 8.2 K/uL (4.8-10.8) Red Blood Count 4.92 MIL/uL (4.00-5.50) Hemoglobin 14.7 g/dL (12.0-16.0) Hematocrit 44.2 % (36-48) Mean Corpuscular Volume 89.8 fL (79-99) Mean Corpuscular Hemoglobin 29.9 pg (27.0-33.0) Mean Corpuscular Hemoglobin Concent 33.3 g/dL (32.0-36.0) Red Cell Distribution Width 12.6 % (11.0-15.5) Platelet Count 260 K/uL (130-400) Mean Platelet Volume 10.5 fL (7.5-10.5) Nucleated Red Blood Cells 0.0 % (0.0-0.19) Sodium Level 139 mmol/L (136-145) Potassium Level 4.4 mmol/L (3.5-5.1) Chloride Level 103 mmol/L (101-111) Carbon Dioxide Level 31 mmol/L (21-32) Blood Urea Nitrogen 24 mg/dL (7-18) H Creatinine 1.0 mg/dL (0.5-1.0) Glomerular Filtration Rate Calc 69 mL/min (>90) Random Glucose 97 mg/dL (70-105) Total Calcium 9.1 mg/dL (8.5-10.1) Total Bilirubin 0.2 mg/dL (0.2-1.0) Aspartate Amino Transf (AST/SGOT) 14 U/L (10-37) Alanine Aminotransferase (ALT/SGPT) 28 U/L (12-78) Alkaline Phosphatase 141 U/L (50-136) H Total Protein 7.7 g/dL (6.0-8.3) Albumin 3.6 g/dL (3.5-5.0) MDM CC: Multiple complaints including headache and dizziness with blurry vision. Historian: Patient Comorbidities: RA, Raynaud's, anxiety, bipolar, depression, Limitations by social determinants of health: Uninsured Differential diagnosis: Migraines, sinus infection, brain tumor head, other. Vital signs: Stable, remained stable in the ER. Clinical exam is unremarkable. Cranial nerves are intact, normal finger nose, ENT exam is normal, cardiac exam is normal. She is nontoxic in appearance. She was quite emotional multiple episodes of crying during my initial evaluation. Labs (independently ordered and interpreted by me): CBC is normal. Metabolic panel normal. Liver enzymes normal. CT head (independently interpreted by me): No acute bleeding or major abnormalities. Treatment in ED: IM Toradol Re-evaluation: Headache improved. Patient may be having migraine headaches. No signs of sinus infection no signs of meningitis, brain tumor, bleed, or any other life-threatening pathology. She was not appear to have any metabolic abnormalities. This point in time we will start the patient on Fioricet for headache, and recommend PCP follow up and return to the emergency department as needed. There is no indication for hospitalization or further workup at this time. There are no dangerous findings today on your workup. I suspect you have mild dehydration, and possibly migraines. ED Course Orders Procedure Category Date Status Time Cbc Without LAB 07/19/24 Complete Differential 16:01 Comprehensive LAB 07/19/24 Complete Metabolic Panel 16:01 Ct Head/Brain W/O CT 07/19/24 Resulted Contrast ,Urine Test LAB 07/19/24 Logged 16:06 Ketorolac PHA 07/19/24 Complete Tromethamine 15mg/Ml 16:30 Current Medications Medications (Trade) Dose Ordered Sig/[place] Route PRN Reason Start Time Stop Time Status Last Admin Dose Admin Ketorolac Tromethamine (toRADol) 15 mg ONCE ONCE IM 07/19/24 16:30 07/19/24 16:31 DC Vital Signs Date Time Temp Pulse Resp B/P (MAP) Pulse Ox O2 Delivery O2 Flow Rate FiO2 07/19/24 15:58 98.1 75 16 141/97 99 Room Air DX & DISP Disposition: Discharge Departure Impression: Primary Impression: Headache Additional Impression: Dizziness Condition: Stable Additional Instructions: There are no dangerous findings on your workup here today. The CT scan of your brain is normal. Your lab work (CBC, metabolic panel) is normal. You received intramuscular ketorolac here in the ER. I have prescribed Fioricet, which is a medication that may assist with your headaches. You can take two tabs every 6 hours as needed. Take this medication with a glass of water. I recommend that you follow up with the primary doctor for further treatment and evaluation. Return to the emergency department as needed. Referrals: SELF,REFERRAL (PCP) RUDDY CORREA DO Jul 19, 2024 19:28
[2024-07-19] MEDS ORDERED: FIORIT PO (19:29)
[2024-07-19] MEDS: ketOROlac 15MG/ML VIAL (15MG/ML) IM ONE (20:12)
[2024-07-19 20:21] VITALS: BP 140/85; PULSE 75; RESP 16; TEMP 98.1; O2SAT 99
== END 2024-07-19 20:31 | disposition home or self-care (01) ==
LOC: EDH 15:54
DX: R51.9 Headache, unspecified (principal); R42 Dizziness and giddiness; F31.9 Bipolar disorder, unspecified; F41.9 Anxiety disorder, unspecified; Z59.71 Insufficient health insurance coverage; Z79.899 Other long term (current) drug therapy; Z90.710 Acquired absence of both cervix and uterus; Z90.721 Acquired absence of ovaries, unilateral
CPT/HCPCS: 99285; 70450; 80053; 85027; 36415; 96372; J1885

== ENCOUNTER → 2024-08-07 | Emergency (ER) | payer SELFPAY ==
[~2024-08-07] VITALS: Ht 162.6 cm; Wt 81.6 kg
[~2024-08-07] MED LIST changes: +FIORIT PO
--- NOTE | 2024-08-07 16:22 | EKG ---
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
[2024-08-07 17:09] VITALS: BP 141/96; PULSE 77; RESP 20; TEMP 97.8
== END ==
LOC: EDH 15:51
DX: R07.89 Other chest pain (principal); Z53.21 Procedure and treatment not carried out due to patient leaving prior to being seen by health care provider
CPT/HCPCS: 93005

== ENCOUNTER 2024-10-02 17:28 | Emergency (ER) | payer SELFPAY ==
[~2024-10-02] VITALS: Ht 162.6 cm; Wt 81.6 kg
[2024-10-02 17:49] LABS: APPEARANCE,URINE CLEAR (CLEAR); BILIRUBIN,URINE NEGATIVE (NEGATIVE); COLOR,URINE LIGHT-YELLOW (YELLOW); GLUCOSE, URINE (UA) NEGATIVE (NEGATIVE); KETONES,URINE NEGATIVE (NEGATIVE); LEUKOCYTE ESTERASE ,URINE NEGATIVE Leu/uL (NEGATIVE); NITRATE,URINE NEGATIVE (NEGATIVE); OCCULT BLOOD,URINE MODERATE (NEGATIVE); PH,URINE 5.5 (5.0-8.0); PROTEIN,URINE NEGATIVE (NEGATIVE); UROBILINOGEN,URINE 0.2 mg/dL (0.2-1.0)
[2024-10-02 17:52] LABS: AMPHET/METH SCREEN,URINE NEGATIVE (NEGATIVE); BARBITURATE SCREEN, URINE NEGATIVE (NEGATIVE); BENZODIAZEPINES SCREEN,URINE NEGATIVE (NEGATIVE); CANNABINOID SCREEN,URINE NEGATIVE (NEGATIVE); COCAINE SCREEN,URINE POSITIVE (NEGATIVE); OPIATE SCREEN,URINE NEGATIVE (NEGATIVE); PHENCYCLIDINE SCREEN,URINE NEGATIVE (NEGATIVE)
[2024-10-02 17:56] LABS: ADD UA MICROSCOPIC YES
[2024-10-02 17:58] LABS: BACTERIA,URINE RARE /HPF (None Seen); MUCUS,URINE RARE LPF (None Seen); SQUAMOUS EPITHELIAL CELL,UR RARE /HPF (0-2); WBC,URINE 0-1 /HPF (0-1)
--- NOTE | 2024-10-02 18:02 | ERN ---
General Chief Complaint: Abdominal Pain Stated Complaint: ABDOMINAL PAIN Time Seen by MD: 17:29 Source: patient History of Present Illness Initial Comments Patient is a 48-year-old female coming in with the epigastric pain. Patient states he has been having this pain for a couple of days the pain is localized to the epigastric region. Pain is exacerbated with eating. No fever or chills. Mild nauseousness no vomiting. She states that she no longer has her gallbladder. Allergies: Coded Allergies: No Known Allergies (Unverified Allergy, Unknown, 11/15/18) Home Meds Active Scripts Butalb/Acetaminophen/Caffeine (Fioricet) 50 Mg-325 Mg-40 Mg Tab, 1 TAB PO QID PRN for headache for 10 Days, #30 TAB Prov:RUDDY CORREA DO 07/19/24 Fluticasone Propionate (Flonase Nasal Roe) 50 Mcg/Actuation Roe, 50 MCG NASAL QID, #1 SPRAY Prov:KINGA NORRIS MD 05/08/24 Amoxicillin (Amoxicillin) 500 Mg Tablet, 500 MG PO TID for 7 Days, #21 TAB Prov:KINGA NORRIS MD 05/08/24 Ibuprofen (Ibuprofen 800 mg Tab) 800 Mg Tab, 800 MG PO Q8H PRN for fever or pain, #30 TAB 0 Refills Prov:YADNEL CASTILLO NP 04/05/24 Amoxicillin/Potassium Clav (Amox Tr-K Clv 875-125 mg Tab) 875 Mg-125 Mg Tablet, 1 EACH PO BID for 10 Days, #20 TAB 0 Refills Prov:YANDEL CASTILLO NP 04/05/24 Fexofenadine/Pseudoephedrine (Erma-D 12 Hour Tablet) 60 Mg-120 Mg Tab.er.12h, 1 EACH PO DAILY for 10 Days, #10 TAB Prov:RENO WILLIS MD 02/23/24 Fluticasone Propionate (Flonase Allergy Relief) 50 Mcg/Actuation [place].susp, 9.9 ML NS TID for 14 Days, #1 BOTTLE Prov:RENO WILLIS MD 02/23/24 Amoxicillin/Potassium Clav (Amox Tr-K Clv 875-125 mg Tab) 875 Mg-125 Mg Tablet, 1 EACH PO BID for 7 Days, #14 TAB Prov:ASYA SMITH 02/09/24 Loratadine (Loratadine) 10 Mg Tablet, 10 MG PO DAILY for 30 Days, #30 TAB Prov:ASYA SMITH 02/09/24 Methylprednisolone (Medrol) 4 Mg Tab.ds.pk, 4 MG PO AD, #1 PACK Prov:CHELSEA ENGLAND 01/28/24 Azithromycin (Azithromycin) 250 Mg Tablet, 250 MG PO DAILY for 5 Days, #5 TAB Prov:CHELSEA ENGLAND 01/28/24 Cephalexin (Cephalexin) 500 Mg Tablet, 500 MG PO TID for 10 Days, #30 TAB Prov:RIGO MIKE MD 03/30/23 Reported Medications [Turmeric] No Conflict Check, 1 TAB PO AM 09/17/22 [Mvi] No Conflict Check, 1 TAB PO AM 09/17/22 [Vitamin D] No Conflict Check, 1 TAB PO AM 09/17/22 [Fish Oil] No Conflict Check, 1 TAB PO AM 09/17/22 Acetaminophen with Codeine (Acetaminophen-Cod #3 Tablet) 1 Each Tablet, 1 EACH PO Q4H PRN for PAIN, TAB 09/17/22 Buspirone HCl (Buspar) 15 Mg Tab, 15 MG PO TID, TAB 04/28/22 Bupropion HCl (Wellbutrin Sr) 150 Mg Srtab, 150 MG PO DAILY for BIPOLAR, TAB.SR 04/28/22 Carbamazepine (Tegretol) 200 Mg Tablet, 200 MG PO AM for BIPOLAR, TAB 04/28/22 Past Medical History Past Medical History: Anxiety, Arthritis, Bipolar, Depression Medical History Other: HX OF RHEUMATOID ARTHRITIS; HX OF RAYNAUD'S SYNDROME Past Surgical History: Hysterectomy, Cholecystectomy, Other, Surgical History Other: LEFT OOPHRECTOMY Family History Family History: Negative Social History Social History: Negative, Lives with family, Other Female( History) History: Not Applicable : 4 Para: 4 Aborts: 0 ROS Dictation CONSTITUTIONAL: No chills, no fever, no weakness, no diaphoresis, no malaise. HEAD/FACE: No signs of trauma. EENT: No eye pain, no blurred vision, no tearing, no double vision, no ear pain, no ear discharge, no nose pain, no nasal congestion, no throat pain, no throat swelling, no mouth pain. RESPIRATORY: No cough, no orthopnea, no SOB, no stridor, no wheezing. CARDIOVASCULAR: No chest pain, no edema, no palpitations, no syncope. GASTROINTESTINAL/ABDOMINAL: abdominal pain, no constipation, no diarrhea, no nausea, no vomiting. GENITOURINARY: No abnormal discharge, no dysuria, no frequent urination, no hematuria. No complaints of pain in the genitals. MUSCULOSKELETAL: No back pain, no gout, no joint pain, no joint swelling, no muscle pain, no muscle stiffness, no neck pain. INTEGUMENTARY: No change in color, no change in hair/nails, no dryness, no lesion, no lumps, no rash. NEUROLOGICAL/PSYCH: No anxiety, not depressed, no emotional problem, no headache, no numbness, no pre-existing deficit, no history of seizures, no tremors, no weakness. HEMATOLOGIC/LYMPHATIC: Not anemic, no history of blood clots, no apparent blee ding, no bruising, glands not swollen. All Systems Negative, Except as Noted. Physical Exam Physical Exam Dictation VITAL SIGNS: Reviewed. GENERAL APPEARANCE: Alert, oriented x3, no acute distress, obese. HEAD AND FACE: Non-traumatic. EYES: PERRL, pink conjunctivas, eyelid no trauma, anterior chamber clear. EARS: Pinnas intact and no signs of trauma or erythema. Ear canals clear and no discharge. TMs no erythema. NOSE: No discharge, no bleeding. OROPHARYNX: Mouth normal, teeth no caries, tongue pink. Pharynx clear, no erythema. Tonsils no exudates, no abscesses noted. Mucous membrane moist. NECK: Supple, non-tender, no thyromegaly, no masses, no JVD, no bruits. BREAST: Deferred. CHEST: No tenderness, no crepitus, no paradoxical movement, no retractions. LUNGS: Clear, well-ventilated, symmetric, no rales, no wheezing, no rhonchi, no stridor, good breath sounds bilaterally. HEART: Regular rate, regular rhythm, no murmur, no gallops. VASCULAR: No peripheral edema. ABDOMEN: Soft, positive bowel sounds, nondistended, no guarding, epigastric tender, no rebound, no masses no hepatomegaly, no splenomegaly, no Smith's sign, no hernias. RECTAL: Deferred. GENITAL: Deferred. NEUROLOGICAL: Normal speech, gross motor function intact, gross sensory function intact. MUSCULOSKELETAL: Neck nontender, full range of motion, back nontender, full range of motion. EXTREMITIES: Nontender, full range of motion. SKIN: Color pink, dry, no turgor, no rash, no lacerations, no abrasions, no contusions. LYMPHATICS: Deferred. Results Laboratory and Microbiology Lab and Micro Result Laboratory Tests Test 10/02/24 17:35 10/02/24 18:02 Urine Color LIGHT-YELLOW (YELLOW) Urine Appearance CLEAR (CLEAR) Urine pH 5.5 (5.0-8.0) Urine Specific [place] 1.018 (1.001-1.031) Urine Protein NEGATIVE mg/dL (NEGATIVE) Urine Glucose (UA) NEGATIVE mg/dL (NEGATIVE) Urine Ketones NEGATIVE mg/dL (NEGATIVE) Urine Occult Blood MODERATE (NEGATIVE) H Urine Nitrate NEGATIVE (NEGATIVE) Urine Bilirubin NEGATIVE mg/dL (NEGATIVE) Urine Urobilinogen 0.2 mg/dL (0.2-1.0) Urine Leukocyte Esterase NEGATIVE Jacinto/uL Urine RBC 2-5 /HPF (0-1) H Urine WBC 0-1 /HPF (0-1) Urine Squamous Epithelial Cells RARE /HPF (0-2) Urine Bacteria RARE /HPF (None Seen) Urine Opiates Screen NEGATIVE (NEGATIVE) Urine Barbiturates Screen NEGATIVE (NEGATIVE) Urine Phencyclidine Screen NEGATIVE (NEGATIVE) Urine Amphetamines Screen NEGATIVE (NEGATIVE) Urine Benzodiazepines Screen NEGATIVE (NEGATIVE) Urine Cocaine Screen POSITIVE (NEGATIVE) H Urine Marijuana (THC) Screen NEGATIVE (NEGATIVE) White Blood Count 7.5 K/uL (4.8-10.8) Red Blood Count 4.87 MIL/uL (4.00-5.50) Hemoglobin 14.6 g/dL (12.0-16.0) Hematocrit 44.9 % (36-48) Mean Corpuscular Volume 92.2 fL (79-99) Mean Corpuscular Hemoglobin 30.0 pg (27.0-33.0) Mean Corpuscular Hemoglobin Concent 32.5 g/dL (32.0-36.0) Red Cell Distribution Width 13.3 % (11.0-15.5) Platelet Count 216 K/uL (130-400) Mean Platelet Volume 10.5 fL (7.5-10.5) Immature Granulocyte % (Auto) 0.3 % (0-1) Neutrophils (%) (Auto) 90.1 % (40.0-77.0) H Lymphocytes (%) (Auto) 6.4 % (21.0-51.0) L Monocytes (%) (Auto) 1.9 % (3.0-13.0) L Eosinophils (%) (Auto) 1.2 % (0.0-8.0) Basophils (%) (Auto) 0.1 % (0.0-5.0) Neutrophils # (Auto) 6.7 K/uL (1.8-7.7) Lymphocytes # (Auto) 0.5 K/uL (1.0-4.8) L Monocytes # (Auto) 0.1 K/uL (0.1-1.0) Eosinophils # (Auto) 0.09 K/uL (0.00-0.70) Basophils # (Auto) 0.01 K/uL (0.00-0.20) Absolute Immature Granulocyte (auto 0.02 K/uL (0-1) Nucleated Red Blood Cells 0.0 % (0.0-0.19) White Cell Morphology Comment See comments Sodium Level 142 mmol/L (136-145) Potassium Level 3.8 mmol/L (3.5-5.1) Chloride Level 107 mmol/L (101-111) Carbon Dioxide Level 27 mmol/L (21-32) Blood Urea Nitrogen 22 mg/dL (7-18) H Creatinine 1.0 mg/dL (0.5-1.0) Glomerular Filtration Rate Calc 69 mL/min (>90) Random Glucose 120 mg/dL (70-105) H Total Calcium 8.7 mg/dL (8.5-10.1) Total Bilirubin 0.2 mg/dL (0.2-1.0) Aspartate Amino Transf (AST/SGOT) 25 U/L (10-37) Alanine Aminotransferase (ALT/SGPT) 37 U/L (12-78) Alkaline Phosphatase 126 U/L (50-136) Total Creatine Kinase 249 U/L (21-232) #H Troponin I High Sensitivity < 4 ng/L (4-50) L Total Protein 7.2 g/dL (6.0-8.3) Albumin 3.4 g/dL (3.5-5.0) L Lipase 46 U/L (16-77) Human Chorionic Gonadotropin, Quant 1 mIU/mL (0-5) Labs Reviewed?: Yes EKG/XRAY/US/CT/MRI EKG Comment 10/02/2024 time 1845 Ventricular rate [address] wave elevation or depression MDM MDM: Differential diagnosis: Cocaine abuse, abdominal pain, gastritis, Rationale: Tests considered and ordered secondary to shared decision making include: Previous outside records reviewed: Old ER visits. Patient is a 48-year-old female coming in to be evaluated for epigastric pain. Laboratory workup positive for cocaine. EKG did not show acute findings. Patient will be discharged in stable condition with a diagnosis of cocaine abuse and gastritis. ED Course Orders Procedure Category Date Status Time Cbc With Differential LAB 10/02/24 Complete 17:35 Comprehensive LAB 10/02/24 Complete Metabolic Panel 17:35 Hcg,Quantitative LAB 10/02/24 Complete 17:35 Urinalysis Profile LAB 10/02/24 Complete 17:35 Creatine Kinase, Total LAB 10/02/24 Complete 17:35 Lipase LAB 10/02/24 Complete 17:35 Drug Screen Urine LAB 10/02/24 Complete 17:35 12 Lead Ekg Tracing- EKG 10/02/24 Complete Technical 18:29 Troponin I High LAB 10/02/24 Complete Sensitivity 18:29 Ondansetron 4mg Inj PHA 10/02/24 Complete (Zofran 4mg Inj) 18:30 Lidocaine Hcl 2% PHA 10/02/24 Complete Viscous (Lidocaine Hcl 18:30 Mag/Alum/Simeth 30ml PHA 10/02/24 Complete (Maalox Plus 30ml) 18:30 Pantoprazole 40mg Inj PHA 10/02/24 Complete (Protonix 40mg Inj 18:30 Current Medications Medications (Trade) Dose Ordered Sig/La Nena Route PRN Reason Start Time Stop Time Status Last Admin Dose Admin Al Hydroxide/Mg Hydroxide (MAALox PLUS 30ML) 30 ml ONCE ONCE PO 10/02/24 18:30 10/02/24 18:39 DC 10/02/24 18:44 Lidocaine HCl (Lidocaine HCl 2% Viscous) 10 ml ONCE ONCE PO 10/02/24 18:30 10/02/24 18:39 DC 10/02/24 18:44 Ondansetron HCl (zoFRAN 4MG INJ) 4 mg ONCE ONCE IVP 10/02/24 18:30 10/02/24 18:39 DC 10/02/24 18:44 Pantoprazole Sodium (PROTonix 40MG INJ) 40 mg ONCE ONCE IVP 10/02/24 18:30 10/02/24 18:39 DC 10/02/24 18:44 Vital Signs Date Time Temp Pulse Resp B/P (MAP) Pulse Ox O2 Delivery O2 Flow Rate FiO2 10/02/24 17:28 99.9 90 16 119/77 96 Room Air 0 10/02/24 17:28 99.9 90 16 119/77 97 Room Air* 0 21 DX & DISP Disposition: Discharge Departure Impression: Primary Impression: Abdominal pain Additional Impressions: Cocaine abuse, Gastritis Condition: Stable Scripts Pantoprazole Sodium (Protonix) 40 Mg Ectab 1 TAB PO DAILY for 30 Days, #30 TAB 0 Refills Prov: RENO WILLIS MD 10/02/24 Additional Instructions: You have been reviewed in the emergency department at [facility] after presenting with chest pain. After considering your history, your risk factors, your EKG and your blood test troponins, have been found to be at very low risk less than (1 in 100) of having a major adverse cardiac event (like heart attack) in the near future. In the " low risk" group, the risks of doing further tests and treatment as the inpatient outweighs the benefits. In many patients in the low risk group for the test of any sort or unnecessary, however he should discuss this further with his general practitioner who will understand the medical and personal backgrounds better. Because we have never declared you" no risk" we would suggest. 1 returning for medical review if you have further episodes of chest pain/arm pain or other concerning symptoms like dizziness, collapse, palpitations or shortness of breath. 2. Following up with your local doctor who will consider the need for further testing and will also ensure that any modifiable risk factors you may have for heart disease are optimally managed. Patient will be discharged in stable condition at the moment discharge patient states , no chest pain Referrals: SELF,REFERRAL (PCP) CHELSEA VACA MD Time of Disposition: 19:01 RENO WILLIS MD Oct 02, 2024 18:02
[2024-10-02 18:10] LABS: BASOPHILS # (AUTO) 0.01 K/uL (0.00-0.20); BASOPHILS % (AUTO) 0.1 % (0.0-5.0); EOSINOPHILS # (AUTO) 0.09 K/uL (0.00-0.70); EOSINOPHILS % (AUTO) 1.2 % (0.0-8.0); HEMATOCRIT 44.9 % (36-48); IMMATURE GRANULOCYTE ABSOLUTE 0.02 K/uL (0-1); LYMPHOCYTES # (AUTO) 0.5 K/uL (1.0-4.8); LYMPHOCYTES % (AUTO) 6.4 % (21.0-51.0); MEAN CORPUSCULAR HGB CONC 32.5 g/dL (32.0-36.0); MEAN CORPUSCULAR VOLUME 92.2 fL (79-99); MONOCYTES # (AUTO) 0.1 K/uL (0.1-1.0); MONOCYTES % (AUTO) 1.9 % (3.0-13.0); NEUTROPHILS # (AUTO) 6.7 K/uL (1.8-7.7); NEUTROPHILS % (AUTO) 90.1 % (40.0-77.0); PLATELET COUNT (AUTO) 216 K/uL (130-400); RED BLOOD CELL COUNT(AUTO) 4.87 MIL/uL (4.00-5.50); RED CELL DISTRIBUTION WIDTH 13.3 % (11.0-15.5); WHITE BLOOD COUNT (AUTO) 7.5 K/uL (4.8-10.8)
[2024-10-02 18:20] LABS: POTASSIUM 3.8 mmol/L (3.5-5.1)
[2024-10-02 18:29] LABS: ALBUMIN 3.4 g/dL (3.5-5.0); BILIRUBIN,TOTAL 0.2 mg/dL (0.2-1.0); TOTAL PROTEIN, SERUM 7.2 g/dL (6.0-8.3)
[2024-10-02] MEDS: MAG/ALUM/SIMETH 30 ML UDCUP PO ONE (18:44)
[2024-10-02] MEDS: ondanSETRON 4MG INJ IVP ONE (18:44)
[2024-10-02] MEDS: PANTOPrazole 40 MG/VIAL IVP ONE (18:44)
[2024-10-02] MEDS: LIDOCAINE HCL 2% VISCOUS 15 ML UDCUP PO ONE (18:44)
--- NOTE | 2024-10-02 18:48 | EKG ---
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
[2024-10-02] MEDS ORDERED: PANT40TA55 PO (19:02)
[2024-10-02 19:05] VITALS: BP 115/76; PULSE 84; RESP 16; TEMP 98.8; O2SAT 96
== END 2024-10-02 19:08 | disposition home or self-care (01) ==
LOC: EDH 17:28
DX: K29.70 Gastritis, unspecified, without bleeding (principal); F14.10 Cocaine abuse, uncomplicated; R10.2 Pelvic and perineal pain; F31.9 Bipolar disorder, unspecified; F41.9 Anxiety disorder, unspecified; Z79.899 Other long term (current) drug therapy; Z90.49 Acquired absence of other specified parts of digestive tract; Z90.710 Acquired absence of both cervix and uterus
CPT/HCPCS: 99284; 96374; 96375; 82550; 84484; 80053; 80305; 84702; 83690; 85025; 36415; 93005; 81001; J2405; J2470

== ENCOUNTER 2025-01-03 16:05 | Emergency (ER) | payer SELFPAY ==
[~2025-01-03] VITALS: Ht 162.6 cm; Wt 81.6 kg
[~2025-01-03 16:05] MED LIST changes: +PANT40TA55 PO
[2025-01-03 16:30] LABS: RAPID GROUP A STREP negative (NEGATIVE)
--- NOTE | 2025-01-03 16:31 | ERN ---
ED Note History of Present Illness Stated Complaint: FLU LIKE SYMPTOMS Chief Complaint: Flu Symptoms Time Seen by MD: 16:13 Dictation: PATIENT IS A 49-YEAR-OLD FEMALE COMING IN WITH FLU-LIKE SYMPTOMS FOR THREE DAYS INCLUDING SORE THROAT WITH PAINFUL SWALLOWING CLEAR RHINITIS, DRY COUGH AND BODY ACHES. NO NAUSEA VOMITING NO DIARRHEA NO LOSS OF TASTE OR SMELL. SHE STATES HER PRIMARY CARE DOCTOR HIS AT [facility], DID NOT GO BECAUSE THEY DO NOT TAKE CARE OF ME. Allergies: Coded Allergies: No Known Allergies (Unverified Allergy, Unknown, 11/15/18) Home Meds Active Scripts Pantoprazole Sodium (Protonix) 40 Mg Ectab, 1 TAB PO DAILY for 30 Days, #30 TAB 0 Refills Prov:RENO WILLIS MD 10/02/24 Butalb/Acetaminophen/Caffeine (Fioricet) 50 Mg-325 Mg-40 Mg Tab, 1 TAB PO QID PRN for headache for 10 Days, #30 TAB Prov:RUDDY CORREA DO 07/19/24 Fluticasone Propionate (Flonase Nasal [place]) 50 Mcg/Actuation [place], 50 MCG NASAL QID, #1 SPRAY Prov:KINGA NORRIS MD 05/08/24 Amoxicillin (Amoxicillin) 500 Mg Tablet, 500 MG PO TID for 7 Days, #21 TAB Prov:KINGA NORRIS MD 05/08/24 Ibuprofen (Ibuprofen 800 mg Tab) 800 Mg Tab, 800 MG PO Q8H PRN for fever or pain, #30 TAB 0 Refills Prov:YANDEL CASTILLO NP 04/05/24 Amoxicillin/Potassium Clav (Amox Tr-K Clv 875-125 mg Tab) 875 Mg-125 Mg Tablet, 1 EACH PO BID for 10 Days, #20 TAB 0 Refills Prov:YANDEL CASTILLO NP 04/05/24 Fexofenadine/Pseudoephedrine (Erma-D 12 Hour Tablet) 60 Mg-120 Mg Tab.er.12h, 1 EACH PO DAILY for 10 Days, #10 TAB Prov:RENO WILLIS MD 02/23/24 Fluticasone Propionate (Flonase Allergy Relief) 50 Mcg/Actuation [place].susp, 9.9 ML NS TID for 14 Days, #1 BOTTLE Prov:RENO WILLIS MD 02/23/24 Amoxicillin/Potassium Clav (Amox Tr-K Clv 875-125 mg Tab) 875 Mg-125 Mg Tablet, 1 EACH PO BID for 7 Days, #14 TAB Prov:ASYA SMITH 02/09/24 Loratadine (Loratadine) 10 Mg Tablet, 10 MG PO DAILY for 30 Days, #30 TAB Prov:ASYA SMITH 02/09/24 Methylprednisolone (Medrol) 4 Mg Tab.ds.pk, 4 MG PO AD, #1 PACK Prov:CHELSEA ENGLAND 01/28/24 Azithromycin (Azithromycin) 250 Mg Tablet, 250 MG PO DAILY for 5 Days, #5 TAB Prov:CHELSEA ENGLAND 01/28/24 Cephalexin (Cephalexin) 500 Mg Tablet, 500 MG PO TID for 10 Days, #30 TAB Prov:RIGO MIKE MD 03/30/23 Reported Medications [Turmeric] No Conflict Check, 1 TAB PO AM 09/17/22 [Mvi] No Conflict Check, 1 TAB PO AM 09/17/22 [Vitamin D] No Conflict Check, 1 TAB PO AM 09/17/22 [Fish Oil] No Conflict Check, 1 TAB PO AM 09/17/22 Acetaminophen with Codeine (Acetaminophen-Cod #3 Tablet) 1 Each Tablet, 1 EACH PO Q4H PRN for PAIN, TAB 09/17/22 Buspirone HCl (Buspar) 15 Mg Tab, 15 MG PO TID, TAB 04/28/22 Bupropion HCl (Wellbutrin Sr) 150 Mg Srtab, 150 MG PO DAILY for BIPOLAR, TAB.SR 04/28/22 Carbamazepine (Tegretol) 200 Mg Tablet, 200 MG PO AM for BIPOLAR, TAB 04/28/22 Past Medical History Past Medical History: Bipolar, Other Additional Past Medical Hx: RA, RAYNAUDS Surgical History: Hysterectomy, Cholecystectomy, Surgical History Other: LEFT OOPHRECTOMY Family History: Negative Social History: Negative, Lives with family, Other History: Not Applicable : 4 Para: 4 Aborts: 0 RN Note Reviewed/Agreed w/PFSH: Yes Review of System Dictation CONSTITUTIONAL: NEGATIVE EXCEPT FOR HPI FEVER CHILLS HEAD/FACE: NEGATIVE EXCEPT FOR HPI EENT: NEGATIVE EXCEPT FOR HPI CLEAR RHINITIS WITH SORE RESPIRATORY: NEGATIVE EXCEPT FOR HPI THROAT DRY COUGH GASTROINTESTINAL/ABDOMINAL: NEGATIVE EXCEPT FOR HPI GENITOURINARY: NEGATIVE EXCEPT FOR HPI MUSCULOSKELETAL: NEGATIVE EXCEPT FOR HPI INTEGUMENTARY: NEGATIVE EXCEPT FOR HPI NEUROLOGICAL/PSYCH: NEGATIVE EXCEPT FOR HPI HEMATOLOGIC/LYMPHATIC: NEGATIVE EXCEPT FOR HPI ALL SYSTEMS NEGATIVE, EXCEPT NOTED ABOVE. 13 POINT REVIEW OF SYSTEMS ASSESSED AND ALL NEGATIVE EXCEPT FOR ABOVE. Initial Vital Sign VS Vital Signs Date Time Temp Pulse Resp B/P (MAP) Pulse Ox O2 Delivery O2 Flow Rate FiO2 01/03/25 16:06 100.8 97 20 137/85 99 Room Air 0 Physical Exam Dictation VITAL SIGNS REVIEWED GENERAL APPEARANCE: ALERT, ORIENTED X 3, MODERATE ACUTE DISTRESS, WELL DEVELOPED, NOURISHED. HEAD AND FACE: NON-TRAUMATIC. EYES: PERRL, PINK CONJUNCTIVAS, EYELID NO TRAUMA, ANTERIOR CHAMBER WITH ARCUS SENILIS. EARS: PINNAS INTACT AND NO SIGNS OF TRAUMA OR ERYTHEMA EAR CANALS CLEAR AND NO DISCHARGE TM NO ERYTHEMA NOSE: N CLEAR NX: MOUTH NORMAL, TONGUE PINK, PHARYNX CLEAR,NO ERYTHEMA, TONSILS 3/4 BILATERALLY AND CRYPTIC, NO ABSCESSES NOTED, MUCOUS MEMBRANE MOIST UVULA MIDLINE, VOICE IS CLEAR NECK: SUPPLE, NON-TENDER, NO THYROMEGALY, NO MASSES, NO JVD, NO BRUITS BREAST:DEFERRED CHEST:NO TENDERNESS, NO CREPITUS, NO PARADOXICAL MOVEMENT, NO RETRACTIONS LUNGS:CLEAR, WELL-VENTILATED, SYMMETRIC, NO RALES, NO WHEEZING, NO RHONCHI, NO STRIDOR, GOOD BREATH SOUNDS BILATERALLY HEART: REGULAR RATE, REGULAR RHYTHM, NO MURMUR, NO GALLOPS VASCULAR: NO PERIPHERAL EDEMA, ABDOMEN: SOFT, POSITIVE BOWEL SOUNDS, NONDISTENDED, NO GUARDING, NONTENDER, NO REBOUND, NO MASSES NO HEPATOMEGALY, NO SPLENOMEGALY, NO ROMANO'S SIGN, NO HERNIAS. RECTAL: DEFERRED GENITAL: DEFERRED NEUROLOGICAL: NORMAL SPEECH, MOTOR FUNCTION INTACT, SENSORY FUNCTION INTACT MUSCULOSKELETAL: NECK NONTENDER, FULL RANGE OF MOTION, BACK NONTENDER, FULL RANGE OF MOTION, EXTREMITIES: NONTENDER, FULL RANGE OF MOTION SKIN: COLOR PINK, DRY, NO TURGOR, NO RASH, NO LACERATIONS, NO ABRASIONS, NO CONTUSIONS. LYMPHATIC: DEFERRED Results (Laboratory/Radiology) Laboratory/Radiology Laboratory Tests Test 01/03/25 16:10 Influenza Type A Antigen Negative For Type A Influenza Type B Antigen Negative For Type B SARS-CoV-2 Antigen (Rapid) POSITIVE FOR SARS AG Group A Streptococcus Rapid negative (NEGATIVE) Labs Reviewed?: Yes ED Course ED Course Orders Procedure Category Date Status Time Influenza Type A & B, LAB 01/03/25 Complete Rapid 16:09 Covid19 (Sars Antigen LAB 01/03/25 Complete Rapid) 16:09 Rapid (Group A Strep) LAB 01/03/25 Complete 16:09 Ibuprofen 800 Mg Tab PHA 01/03/25 Complete (Motrin) 16:30 Dexamethasone 10mg/Ml PHA 01/03/25 Complete 1ml Vial (Dexameth 16:30 Current Medications Medications (Trade) Dose Ordered Sig/[place] Route PRN Reason Start Time Stop Time Status Last Admin Dose Admin Dexamethasone Sodium Phosphate (dexaMETHasone 10MG/ML 1ML VIAL) 8 mg ONCE ONCE IM 01/03/25 16:30 01/03/25 16:34 DC Ibuprofen (moTRIN) 800 mg ONCE ONCE PO 01/03/25 16:30 01/03/25 16:34 DC Vital Signs Date Time Temp Pulse Resp B/P (MAP) Pulse Ox O2 Delivery O2 Flow Rate FiO2 01/03/25 16:06 100.8 97 20 137/85 99 Room Air 0 Medical Decision Making MDM MEDICAL DISCHARGE MAKING BASED ON SWABS FOR FLU COVID AND STREP. PATIENT POSITIVE FOR COVID-19 INFECTION SHE WILL BE TREATED EMPIRICALLY FOR ACUTE TONSILLITIS UNSPECIFIED GIVEN AUGMENTIN AND SUPPORTIVE MEDS FOR HER SARS COVID. FOLLOW UP WITH HER PRIMARY CARE DX & DISP Disposition: Discharge Departure Impression: Primary Impression: COVID-19 virus infection Additional Impressions: Acute tonsillitis, unspecified, Fever Condition: Stable Scripts Benzonatate (Tessalon Perles) 100 Mg Cap 200 MG PO TID for cough, #60 CAP 0 Refills Prov: YANDEL CASTILLO NEUROLOGY TECH 01/03/25 Ibuprofen (Ibuprofen 800 mg Tab) 800 Mg Tab 800 MG PO Q8H PRN for fever or pain, #30 TAB 0 Refills Prov: YANDEL CASTILLO NEUROLOGY TECH 01/03/25 Methylprednisolone (Medrol) 4 Mg Tab.ds.pk 1 TAB PO AD for 6 Days, #21 TAB 0 Refills 6 on day 1 then reduce by one tablet daily until gone Prov: YANDEL CASTILLO NEUROLOGY TECH 01/03/25 Amoxicillin/Potassium Clav (Amox Tr-K Clv 875-125 mg Tab) 875 Mg-125 Mg Tablet 1 EACH PO BID for 10 Days, #20 TAB 0 Refills Prov: YANDEL CASTILLO NP 01/03/25 Additional Instructions: FOLLOW-UP WITH PRIMARY CARE PROVIDER IN 1 TO 2 DAYS. TAKE MEDICATIONS DIRECTED HERE IN THE EMERGENCY ROOM. OKAY TO CONTINUE HOME MEDICATIONS UNLESS OTHERWISE DISCUSSED DURING YOUR VISIT IN THE EMERGENCY ROOM TODAY. RETURN TO YOUR NEAREST EMERGENCY ROOM IF SYMPTOMS WORSEN OR IF THERE IS NO IMPROVEMENT. CALL 911 IF YOU NEED IMMEDIATE ASSISTANCE. TAKE TYLENOL OR MOTRIN [id number] NEEDED AND IF NO CONTRAINDICATIONS ARE PRESENT. INCREASE ORAL HYDRATION. A WOUND CULTURE OR URINE CULTURE WAS ORDERED HERE IN THE EMERGENCY ROOM DEPARTMENT PLEASE FOLLOW-UP WITH PRIMARY CARE PROVIDER AND ADVISE THEM TO GET REPEAT PORTS FROM OUR FACILITY. IF YOU HAD ANY DAVID WRAP/SPLINTS THAT WERE APPLIED HERE, PLEASE DO NOT REMOVE THEM UNTIL YOU SEE YOUR PRIMARY CARE OR SPECIALTY. TAKE ANTIBIOTICS DIRECTED UNTIL GONE. TAKE MEDROL DOSEPAK DIRECTED UNTIL GONE. INCREASE YOUR FLUID INTAKE. NO WORK UNTIL CLEARED BY YOUR PRIMARY CARE DOCTOR IN 1-2 DAYS. Referrals: SELF,REFERRAL (PCP) Time of Disposition: 16:55 I have reviewed the case, and I agree with, Diagnosis and Plan YANDEL CASTILLO NP Jan 03, 2025 16:31
[2025-01-03 16:39] LABS: INFLUENZA TYPE A Negative For Type A (NEGATIVE); INFLUENZA TYPE B Negative For Type B (NEGATIVE)
[2025-01-03 16:46] LABS: COVID19 (SARS ANTIGEN RAPID) POSITIVE FOR SARS AG (NEGATIVE)
[2025-01-03] MEDS ORDERED: METH4TAB3 PO (16:56)
[2025-01-03] MEDS ORDERED: BENZ-39 PO (16:56)
[2025-01-03 17:16] VITALS: BP 135/82; PULSE 92; RESP 16; TEMP 100.2; O2SAT 98
== END 2025-01-03 17:31 | disposition home or self-care (01) ==
LOC: EDH 16:05
DX: U07.1 COVID-19 (principal); J03.90 Acute tonsillitis, unspecified; Z79.899 Other long term (current) drug therapy; Z90.49 Acquired absence of other specified parts of digestive tract; Z90.710 Acquired absence of both cervix and uterus
CPT/HCPCS: 99283; 87426; 87880; 87804 ×2; 96372; J1100

== ENCOUNTER 2025-02-19 15:24 | Emergency (ER) | payer SELFPAY ==
[~2025-02-19] VITALS: Ht 162.6 cm; Wt 85.3 kg
[~2025-02-19 15:24] MED LIST changes: +BENZ-39 PO
[2025-02-19 16:17] LABS: RAPID GROUP A STREP negative (NEGATIVE)
[2025-02-19 16:20] LABS: SARS-CoV-2, RNA, NAAT NEGATIVE SARS CoV-2 (NEGATIVE)
[2025-02-19 16:28] LABS: INFLUENZA TYPE A Negative For Type A (NEGATIVE); INFLUENZA TYPE B Negative For Type B (NEGATIVE)
[2025-02-19] MEDS: guaiFENesin-DM 200/20MG 10ML PO ONE (17:45)
[2025-02-19] MEDS: LACTATED RINGERS 1000ML IV STA (17:46)
--- NOTE | 2025-02-19 17:53 | ERN ---
General Chief Complaint: Sore Throat Stated Complaint: SORE THROAT Time Seen by MD: 17:03 Source: patient History of Present Illness Initial Comments 49-year-old female with symptoms of an upper respiratory tract infection for three days. Her throat feels really tight with swollen tonsils. She feels pain in her sinuses. She has productive cough with emesis. States that she has trouble filling Allergies: Coded Allergies: No Known Allergies (Unverified Allergy, Unknown, 11/15/18) Home Meds Active Scripts Benzonatate (Tessalon Perles) 100 Mg Cap, 200 MG PO TID for cough, #60 CAP 0 Refills Prov:YANDEL CASTILLO NP 01/03/25 Ibuprofen (Ibuprofen 800 mg Tab) 800 Mg Tab, 800 MG PO Q8H PRN for fever or pain, #30 TAB 0 Refills Prov:YANDEL CASTILLO NP 01/03/25 Methylprednisolone (Medrol) 4 Mg Tab.ds.pk, 1 TAB PO AD for 6 Days, #21 TAB 0 Refills 6 on day 1 then reduce by one tablet daily until gone Prov:YANDEL CASTILLO NP 01/03/25 Amoxicillin/Potassium Clav (Amox Tr-K Clv 875-125 mg Tab) 875 Mg-125 Mg Tablet, 1 EACH PO BID for 10 Days, #20 TAB 0 Refills Prov:YANDEL CASTILLO NP 01/03/25 Pantoprazole Sodium (Protonix) 40 Mg Ectab, 1 TAB PO DAILY for 30 Days, #30 TAB 0 Refills Prov:RENO WILLIS MD 10/02/24 Butalb/Acetaminophen/Caffeine (Fioricet) 50 Mg-325 Mg-40 Mg Tab, 1 TAB PO QID PRN for headache for 10 Days, #30 TAB Prov:RUDDY CORREA DO 07/19/24 Fluticasone Propionate (Flonase Nasal [place]) 50 Mcg/Actuation [place], 50 MCG NASAL QID, #1 SPRAY Prov:KINGA NORRIS MD 05/08/24 Amoxicillin (Amoxicillin) 500 Mg Tablet, 500 MG PO TID for 7 Days, #21 TAB Prov:KINGA NORRIS MD 05/08/24 Ibuprofen (Ibuprofen 800 mg Tab) 800 Mg Tab, 800 MG PO Q8H PRN for fever or pain, #30 TAB 0 Refills Prov:YANDEL CASTILLO NP 04/05/24 Amoxicillin/Potassium Clav (Amox Tr-K Clv 875-125 mg Tab) 875 Mg-125 Mg Tablet, 1 EACH PO BID for 10 Days, #20 TAB 0 Refills Prov:YANDEL CASTILLO NP 04/05/24 Fexofenadine/Pseudoephedrine (Erma-D 12 Hour Tablet) 60 Mg-120 Mg Tab.er.12h, 1 EACH PO DAILY for 10 Days, #10 TAB Prov:RENO WILLIS MD 02/23/24 Fluticasone Propionate (Flonase Allergy Relief) 50 Mcg/Actuation [place].susp, 9.9 ML NS TID for 14 Days, #1 BOTTLE Prov:RENO WILLIS MD 02/23/24 Amoxicillin/Potassium Clav (Amox Tr-K Clv 875-125 mg Tab) 875 Mg-125 Mg Tablet, 1 EACH PO BID for 7 Days, #14 TAB Prov:ASYA SMITH 02/09/24 Loratadine (Loratadine) 10 Mg Tablet, 10 MG PO DAILY for 30 Days, #30 TAB Prov:ASYA SMITH 02/09/24 Methylprednisolone (Medrol) 4 Mg Tab.ds.pk, 4 MG PO AD, #1 PACK Prov:CHELSEA ENGLAND 01/28/24 Azithromycin (Azithromycin) 250 Mg Tablet, 250 MG PO DAILY for 5 Days, #5 TAB Prov:CHELSEA ENGLAND 01/28/24 Cephalexin (Cephalexin) 500 Mg Tablet, 500 MG PO TID for 10 Days, #30 TAB Prov:RIGO MIKE MD 03/30/23 Reported Medications [Turmeric] No Conflict Check, 1 TAB PO AM 09/17/22 [Mvi] No Conflict Check, 1 TAB PO AM 09/17/22 [Vitamin D] No Conflict Check, 1 TAB PO AM 09/17/22 [Fish Oil] No Conflict Check, 1 TAB PO AM 09/17/22 Acetaminophen with Codeine (Acetaminophen-Cod #3 Tablet) 1 Each Tablet, 1 EACH PO Q4H PRN for PAIN, TAB 09/17/22 Buspirone HCl (Buspar) 15 Mg Tab, 15 MG PO TID, TAB 04/28/22 Bupropion HCl (Wellbutrin Sr) 150 Mg Srtab, 150 MG PO DAILY for BIPOLAR, TAB.SR 04/28/22 Carbamazepine (Tegretol) 200 Mg Tablet, 200 MG PO AM for BIPOLAR, TAB 04/28/22 Past Medical History Past Medical History: Bipolar, Other Medical History Other: ra, raynuds Past Surgical History: Cholecystectomy, Surgical History Other: LEFT OOPHRECTOMY Family History Family History: Negative Social History Social History: Negative, Lives with family, Other Female( History) History: Not Applicable : 4 Para: 4 Aborts: 0 Constitutional: (-) chills, (-) diaphoresis, (-) fever, (-) malaise, (-) weakness, (-) other documentation EENTM: (-) eye pain, (-) blurred vision, (-) tearing, (-) double vision, (-) ear pain, (-) ear discharge, (-) nose pain, (-) nose congestion, (-) throat pain, (-) Throat swelling, (-) mouth pain, (-) tooth pain, (-) mouth swelling, (-) other documentation Respiratory: (+) cough, (+) short of breath Gastrointestinal/Abdominal: (+) nausea Genitourinary: (-) vaginal discharge, (-) vaginal bleeding, (-) dysuria, (-) frequency, (-) hematuria, (-) pain, (-) other documentation Musculoskeletal: (-) Neck pain, (-) back pain, (-) Flank Pain, (-) joint pain, (-) joint swelling, (-) muscle pain, (-) muscle stiffness, (-) gout, (-) other documentation Skin: (-) laceration, (-) contusion, (-) abrasion, (-) abscess, (-) rash, (-) change in color, (-) change in hair, (-) change in nails, (-) diaphoresis, (-) dryness, (-) other documentation Physical Exam General Appearance: (+) moderate distress Orientation: (+) alert, (+) oriented x 3 Head/Face Trauma: No Ear, Nose, Throat: (+) hearing grossly normal, (+) normal ENT inspection Ear, Nose, Throat Comment Pharyngitis Neck: (+) normal inspection, (+) supple, (+) full range of motion, (+) tender Respiratory: (+) chest non-tender, (+) lungs clear, (+) well ventilated Heart: (+) regular, (+) no gallop Vascular: (+) no edema Gastrointestinal: (+) soft, (+) non-tender, (+) bowel sound present Results Laboratory and Microbiology Lab and Micro Result Laboratory Tests Test 02/19/25 15:50 02/19/25 17:45 Influenza Type A Antigen Negative For Type A Influenza Type B Antigen Negative For Type B SARS-CoV-2, RNA, NAAT NEGATIVE SARS CoV-2 Group A Streptococcus Rapid negative (NEGATIVE) White Blood Count 5.9 K/uL (4.8-10.8) Red Blood Count 4.95 MIL/uL (4.00-5.50) Hemoglobin 14.9 g/dL (12.0-16.0) Hematocrit 43.6 % (36-48) Mean Corpuscular Volume 88.1 fL (79-99) Mean Corpuscular Hemoglobin 30.1 pg (27.0-33.0) Mean Corpuscular Hemoglobin Concent 34.2 g/dL (32.0-36.0) Red Cell Distribution Width 12.9 % (11.0-15.5) Platelet Count 254 K/uL (130-400) Mean Platelet Volume 11.2 fL (7.5-10.5) H Immature Granulocyte % (Auto) 0.2 % (0-1) Neutrophils (%) (Auto) 50.4 % (40.0-77.0) Lymphocytes (%) (Auto) 40.4 % (21.0-51.0) Monocytes (%) (Auto) 5.9 % (3.0-13.0) Eosinophils (%) (Auto) 2.4 % (0.0-8.0) Basophils (%) (Auto) 0.7 % (0.0-5.0) Neutrophils # (Auto) 3.0 K/uL (1.8-7.7) Lymphocytes # (Auto) 2.4 K/uL (1.0-4.8) Monocytes # (Auto) 0.4 K/uL (0.1-1.0) Eosinophils # (Auto) 0.14 K/uL (0.00-0.70) Basophils # (Auto) 0.04 K/uL (0.00-0.20) Absolute Immature Granulocyte (auto 0.01 K/uL (0-1) Nucleated Red Blood Cells 0.0 % (0.0-0.19) Sodium Level 140 mmol/L (136-145) Potassium Level 3.8 mmol/L (3.5-5.1) Chloride Level 104 mmol/L (101-111) Carbon Dioxide Level 29 mmol/L (21-32) Blood Urea Nitrogen 16 mg/dL (7-18) Creatinine 0.8 mg/dL (0.5-1.0) Glomerular Filtration Rate Calc 90 mL/min (>90) Random Glucose 82 mg/dL (70-105) Total Calcium 8.7 mg/dL (8.5-10.1) MDM MDM: Differential diagnosis: Upper respiratory tract infection, sinus infection, tonsillitis, pharyngitis, Rationale: Tests considered and ordered secondary to shared decision making include: Previous outside records reviewed: Old ER visits. Risk of complication and/or morbidity or mortality of patient management: None Medications-Per medication reconciliation Need for hospitalization: Patient does meet criteria for hospitalization. Need for emergency major/minor surgery: No There are no social concerns with this patient. Prescription drug management Prescriptions will include symptomatic care Patient's prior external medical records from other ER visits were reviewed by me as indicated. Prior testing and results from previous visits were reviewed. Prior tests were taken into account with medical decision making and resource utilization, independent historian/historians were used to obtain complete medical history. I independently interpreted the test that were performed, results were reviewed by me and considered findings on radiology if ordered. Patient's CBC is normal. Patient's chemistry panel is normal. Patient's throat serology negative for strep throat influenza or COVID. Patient's x-ray is negative for pneumonia as well. I have attempted to quell patient's symptoms with Robitussin and Sudafed but it has not helped. I think the patient has a upper respiratory tract infection caused by a virus. Aside from symptom control there was not much more we can offer here in the emergency room or in the hospital. ED Course Orders Procedure Category Date Status Time Covid Rna Naat LAB 02/19/25 Complete 15:36 Influenza Type A & B, LAB 02/19/25 Complete Rapid 15:36 Rapid (Group A Strep) LAB 02/19/25 Complete 15:36 Cbc With Differential LAB 02/19/25 Complete 17:23 Basic Metabolic Panel LAB 02/19/25 Complete 17:23 Urinalysis Profile LAB 02/19/25 Logged 17:23 Lactated Ringers PHA 02/19/25 Complete 1000ml (Lactated 17:23 Guaifenesin-Dm PHA 02/19/25 Complete 200/20mg 10ml 17:30 Chest 1vw RAD 02/19/25 Taken 17:23 Pseudoephedrine Hcl PHA 02/19/25 Complete (Sudafed) 17:30 Current Medications Medications (Trade) Dose Ordered Sig/[place] Route PRN Reason Start Time Stop Time Status Last Admin Dose Admin Guaifenesin/ Dextromethorphan (RobiTUSSin DM 200/20MG 10ML) 15 ml ONCE ONCE PO 02/19/25 17:30 02/19/25 17:31 DC 02/19/25 17:45 Lactated Ringer's (Lactated Ringers 1000ml) 1,000 ml BOLUS STAT IV 02/19/25 17:23 02/19/25 17:30 DC 02/19/25 17:46 Pseudoephedrine HCl (SudaFED) 30 mg ONCE ONCE PO 02/19/25 17:30 02/19/25 17:31 DC 02/19/25 17:45 Vital Signs Date Time Temp Pulse Resp B/P (MAP) Pulse Ox O2 Delivery O2 Flow Rate FiO2 02/19/25 15:43 98.4 67 18 153/90 98 Room Air* 0 21 02/19/25 15:38 98.4 67 18 153/90 98 Room Air 0 DX & DISP Disposition: Discharge Departure Impression: Primary Impression: Acute pharyngitis, unspecified Additional Impressions: Acute tonsillitis, unspecified, Upper respiratory infection Condition: Stable Scripts Benzonatate (Benzonatate) 200 Mg Capsule 1 CAP PO TID for cough for 10 Days, #30 CAP 0 Refills Prov: EPI DIAZ MD 02/19/25 Additional Instructions: You have an upper respiratory tract infection. I have no evidence of a bacterial infection and therefore antibiotics are not needed for this. I wonder if the upper respiratory tract infection is affecting your sinuses. I recommend continuing gargling with warm salt water for symptom relief. I have written a prescription for Tessalon Perles that will help with your cough. For your sinus symptoms I recommend Sudafed. Please follow-up with your primary care physician if you are not better in the next several days. Referrals: SELF,REFERRAL (PCP) EPI DIAZ MD Feb 19, 2025 17:53
[2025-02-19 17:55] LABS: IMMATURE GRANULOCYTE ABSOLUTE 0.01 K/uL (0-1); NUCLEATED RED BLOOD CELLS 0.0 % (0.0-0.19); PLATELET COUNT (AUTO) 254 K/uL (130-400); RED BLOOD CELL COUNT(AUTO) 4.95 MIL/uL (4.00-5.50); RED CELL DISTRIBUTION WIDTH 12.9 % (11.0-15.5); WHITE BLOOD COUNT (AUTO) 5.9 K/uL (4.8-10.8)
[2025-02-19 18:07] LABS: CREATININE 0.8 mg/dL (0.5-1.0); GLOMERULAR FILTR. RATE CALC 90.0 mL/min (>90); GLUCOSE,RANDOM 82.0 mg/dL (70-105); SODIUM SERUM 140.0 mmol/L (136-145); UREA NITROGEN, BLOOD 16.0 mg/dL (7-18)
[2025-02-19] MEDS ORDERED: BENZ200C53 PO ×2 (19:00→19:02)
--- NOTE | 2025-02-19 19:02 | HMCIMG ---
EXAM: CR Chest, 1 View. CLINICAL HISTORY: Upper respiratory tract infection COMPARISON: None provided. FINDINGS: LUNGS: The lungs show no infiltrate or other acute finding. PLEURAL SPACES: No evidence of pleural effusion or pneumothorax. MEDIASTINUM: The cardiomediastinal silhouette is within normal limits. BONES: No aggressive appearing osseous lesion seen. IMPRESSION: No acute cardiopulmonary pathology is evident. /[place]
[2025-02-19 20:16] VITALS: BP 150/85; PULSE 69; RESP 18; TEMP 98.5; O2SAT 98
== END 2025-02-19 20:32 | disposition home or self-care (01) ==
LOC: EDH 15:24
DX: J02.9 Acute pharyngitis, unspecified (principal); J06.9 Acute upper respiratory infection, unspecified; Z79.899 Other long term (current) drug therapy; Z90.49 Acquired absence of other specified parts of digestive tract; F31.9 Bipolar disorder, unspecified; Z20.822 Contact with and (suspected) exposure to COVID-19
CPT/HCPCS: 99284; 71045; 87635; 80048; 85025; 87880; 87804 ×2; 36415; J7120

== ENCOUNTER 2025-03-20 07:32 | Emergency (ER) | payer SELFPAY ==
[~2025-03-20] VITALS: Ht 162.6 cm; Wt 83.9 kg
[~2025-03-20 07:32] MED LIST changes: +BENZ200C53 PO; +GUAI100L96 PO
[2025-03-20 07:41] VITALS: BP 136/85; PULSE 74; RESP 12; TEMP 97.9; O2SAT 96
[2025-03-20 08:07] LABS: IMMATURE GRANULOCYTE ABSOLUTE 0.02 K/uL (0-1); NUCLEATED RED BLOOD CELLS 0.0 % (0.0-0.19); PLATELET COUNT (AUTO) 242 K/uL (130-400); RED BLOOD CELL COUNT(AUTO) 4.78 MIL/uL (4.00-5.50); RED CELL DISTRIBUTION WIDTH 12.5 % (11.0-15.5); WHITE BLOOD COUNT (AUTO) 5.3 K/uL (4.8-10.8)
[2025-03-20] MEDS: 0.9%NACL 1000ML 1,000 ML IV ONE (08:11)
[2025-03-20 08:20] LABS: CREATININE 0.7 mg/dL (0.5-1.0); GLOMERULAR FILTR. RATE CALC 105.0 mL/min (>90); GLUCOSE,RANDOM 95.0 mg/dL (70-105); SODIUM SERUM 143.0 mmol/L (136-145); UREA NITROGEN, BLOOD 16.0 mg/dL (7-18)
[2025-03-20 08:25] LABS: ASPARTATE AMINOTRANSFERASE 16.0 U/L (10-37); TOTAL PROTEIN, SERUM 7.0 g/dL (6.0-8.3)
--- NOTE | 2025-03-20 09:22 | HMCIMG ---
EXAM: CT Abdomen and Pelvis Without IV contrast CLINICAL HISTORY: epigastric pain TECHNIQUE: Axial computed tomography images of the abdomen and pelvis without intravenous contrast. CONTRAST: No IV contrast. COMPARISON: None provided. FINDINGS: LUNG BASES: The lung bases appear clear. No pleural effusions are seen. LIVER: Fatty liver. GALLBLADDER AND BILE DUCTS: Status post cholecystectomy. PANCREAS: Unremarkable. SPLEEN: Unremarkable. ADRENAL GLANDS: Unremarkable. KIDNEYS, URETERS, AND BLADDER: The kidneys appear within normal limits. There is no hydronephrosis or hydroureter. No urinary calculi are seen. STOMACH AND BOWEL: Colonic diverticulosis. APPENDIX: No evidence of acute appendicitis on CT examination. PERITONEUM: No free fluid. No free air. LYMPH NODES: No lymphadenopathy is evident. REPRODUCTIVE: Unremarkable as visualized. VASCULATURE: No evidence of abdominal aortic aneurysm. BONES: No aggressive appearing osseous lesion. No acute osseous pathology evident. MISCELLANEOUS: Fat-containing umbilical hernia. In the Mild degenerative ends of the hips. IMPRESSION: 1. No acute intraabdominal or pelvic pathology. 2. Fatty liver. 3. Status post cholecystectomy. 4. Colonic diverticulosis. 5. Fat-containing umbilical hernia. 6. Mild degenerative changes of the hips. /[place]
[2025-03-20 10:16] LABS: APPEARANCE,URINE CLEAR (CLEAR); GLUCOSE, URINE (UA) NEGATIVE (NEGATIVE); LEUKOCYTE ESTERASE ,URINE NEGATIVE Leu/uL (NEGATIVE); NITRATE,URINE NEGATIVE (NEGATIVE); OCCULT BLOOD,URINE +- (TRACE) (NEGATIVE)
[2025-03-20 10:22] LABS: ADD UA MICROSCOPIC YES
[2025-03-20 10:30] LABS: SQUAMOUS EPITHELIAL CELL,UR RARE /HPF (0-2)
[2025-03-20] MEDS ORDERED: ONDA-243 PO (10:36)
[2025-03-20] MEDS ORDERED: DICY20TA2 PO (10:36)
--- NOTE | 2025-03-20 10:37 | ERN ---
ED Note History of Present Illness Stated Complaint: ABD PAIN Chief Complaint: Abdominal Pain Time Seen by MD: 07:43 Dictation: 49 y/o F with diffuse abdominal cramps and nausea, vomiting and diarrhea. Pt reports symptoms for the past few days but worse this morning. Allergies: Coded Allergies: No Known Allergies (Unverified Allergy, Unknown, 11/15/18) Home Meds Active Scripts Guaifenesin (Robitussin Syrp) 100 Mg/5 Ml Syrp, 5-10 ML PO QID for cough for 6 Days, #240 ML 0 Refills Prov:DERRELL ALEXANDERP 03/12/25 Benzonatate (Benzonatate) 200 Mg Capsule, 1 CAP PO TIDP PRN for cough for 7 Days, #21 CAP 0 Refills Prov:EPI DIAZ MD 02/19/25 Benzonatate (Benzonatate) 200 Mg Capsule, 1 CAP PO TID for cough for 10 Days, #30 CAP 0 Refills Prov:EPI DIAZ MD 02/19/25 Benzonatate (Tessalon Perles) 100 Mg Cap, 200 MG PO TID for cough, #60 CAP 0 Refills Prov:YANDEL CASTILLO NP 01/03/25 Ibuprofen (Ibuprofen 800 mg Tab) 800 Mg Tab, 800 MG PO Q8H PRN for fever or pain, #30 TAB 0 Refills Prov:YANDEL CASTILLO NP 01/03/25 Methylprednisolone (Medrol) 4 Mg Tab.ds.pk, 1 TAB PO AD for 6 Days, #21 TAB 0 Refills 6 on day 1 then reduce by one tablet daily until gone Prov:YANDEL CASTILLO NP 01/03/25 Amoxicillin/Potassium Clav (Amox Tr-K Clv 875-125 mg Tab) 875 Mg-125 Mg Tablet, 1 EACH PO BID for 10 Days, #20 TAB 0 Refills Prov:YANDEL CASTILLO NP 01/03/25 Pantoprazole Sodium (Protonix) 40 Mg Ectab, 1 TAB PO DAILY for 30 Days, #30 TAB 0 Refills Prov:RENO WILLIS MD 10/02/24 Butalb/Acetaminophen/Caffeine (Fioricet) 50 Mg-325 Mg-40 Mg Tab, 1 TAB PO QID PRN for headache for 10 Days, #30 TAB Prov:RUDDY CORREA DO 07/19/24 Fluticasone Propionate (Flonase Nasal [place]) 50 Mcg/Actuation [place], 50 MCG NASAL QID, #1 SPRAY Prov:KINGA NORRIS MD 05/08/24 Amoxicillin (Amoxicillin) 500 Mg Tablet, 500 MG PO TID for 7 Days, #21 TAB Prov:KINGA NORRIS MD 05/08/24 Ibuprofen (Ibuprofen 800 mg Tab) 800 Mg Tab, 800 MG PO Q8H PRN for fever or pain, #30 TAB 0 Refills Prov:YANDEL CASTILLO NP 04/05/24 Amoxicillin/Potassium Clav (Amox Tr-K Clv 875-125 mg Tab) 875 Mg-125 Mg Tablet, 1 EACH PO BID for 10 Days, #20 TAB 0 Refills Prov:YANDEL CASTILLO NP 04/05/24 Fexofenadine/Pseudoephedrine (Erma-D 12 Hour Tablet) 60 Mg-120 Mg Tab.er.12h, 1 EACH PO DAILY for 10 Days, #10 TAB Prov:RENO WILLIS MD 02/23/24 Fluticasone Propionate (Flonase Allergy Relief) 50 Mcg/Actuation [place].susp, 9.9 ML NS TID for 14 Days, #1 BOTTLE Prov:RENO WILLIS MD 02/23/24 Amoxicillin/Potassium Clav (Amox Tr-K Clv 875-125 mg Tab) 875 Mg-125 Mg Tablet, 1 EACH PO BID for 7 Days, #14 TAB Prov:ASYA SMITH 02/09/24 Loratadine (Loratadine) 10 Mg Tablet, 10 MG PO DAILY for 30 Days, #30 TAB Prov:ASYA SMITH 02/09/24 Methylprednisolone (Medrol) 4 Mg Tab.ds.pk, 4 MG PO AD, #1 PACK Prov:CHELSEA ENGLAND 01/28/24 Azithromycin (Azithromycin) 250 Mg Tablet, 250 MG PO DAILY for 5 Days, #5 TAB Prov:CHELSEA ENGLAND 01/28/24 Cephalexin (Cephalexin) 500 Mg Tablet, 500 MG PO TID for 10 Days, #30 TAB Prov:RIGO MIKE MD 03/30/23 Reported Medications [Turmeric] No Conflict Check, 1 TAB PO AM 09/17/22 [Mvi] No Conflict Check, 1 TAB PO AM 09/17/22 [Vitamin D] No Conflict Check, 1 TAB PO AM 09/17/22 [Fish Oil] No Conflict Check, 1 TAB PO AM 09/17/22 Acetaminophen with Codeine (Acetaminophen-Cod #3 Tablet) 1 Each Tablet, 1 EACH PO Q4H PRN for PAIN, TAB 09/17/22 Buspirone HCl (Buspar) 15 Mg Tab, 15 MG PO TID, TAB 04/28/22 Bupropion HCl (Wellbutrin Sr) 150 Mg Srtab, 150 MG PO DAILY for BIPOLAR, TAB.SR 04/28/22 Carbamazepine (Tegretol) 200 Mg Tablet, 200 MG PO AM for BIPOLAR, TAB 04/28/22 Past Medical History Past Medical History: Anxiety, Arthritis, Bipolar, Other Additional Past Medical Hx: ra, raynuds Surgical History: Cholecystectomy, Surgical History Other: LEFT OOPHRECTOMY Family History: Negative Social History: Negative, Lives with family, Other History: Not Applicable : 4 Para: 4 Aborts: 0 Review of System Dictation Constitutional: Negative for fever,chills, and weight loss Eyes: Negative for injury, pain,redness, and discharge ENT: Negative for injury,pain or swelling Cardiovascular: Negative for chest pain, palpitations, and edema Respiratory: Negative for shortness of breath, cough, and wheezing, Abdomen/GI: per HPI Back: Negative for injury and pain : Negative for injury, bleeding and discharge MS/Extremity: Negative for injury and deformity Skin: Negative for rash, and discoloration Neuro: Negative for headache, weakness, numbness, tingling, and seizure Psych: Negative for suicide ideation, homicidal ideation, and hallucinations Initial Vital Sign VS Vital Signs Date Time Temp Pulse Resp B/P (MAP) Pulse Ox O2 Delivery O2 Flow Rate FiO2 03/20/25 07:34 98.1 74 18 145/95 97 Room Air 0 03/20/25 07:41 21 Physical Exam Dictation General: awake, alert, uncomfortable Head/Face: Normocephalic, atraumatic Eyes: PERRL, EOMI, vision at baseline ENT: oral cavity clear, TMs clear, no signs of infection Neck: Trachea midline, supple, no nuchal rigidity Cardiovascular: RRR, normal S1/S2, No MRGs, no JVD Respiratory: CTAB, no respiratory distress, No rales or wheezes Abdomen: Soft, diffuse abdominal cramps , non-distended, normal bowel sounds, no guarding or rebound. Skin: Warm, dry, normal turgor, no rash MS/Extremity: Pulses equal, no cyanosis, neurovascular intact, FROM Neuro: COAx4, GCS 15, strength 5/5, CN 2-12 intact, normal cerebellar exam, normal gait, Psych: Normal behavior, mood, and affect normal Results (Laboratory/Radiology) Laboratory/Radiology Laboratory Tests Test 03/20/25 08:03 03/20/25 09:06 White Blood Count 5.3 K/uL (4.8-10.8) Red Blood Count 4.78 MIL/uL (4.00-5.50) Hemoglobin 14.3 g/dL (12.0-16.0) Hematocrit 42.6 % (36-48) Mean Corpuscular Volume 89.1 fL (79-99) Mean Corpuscular Hemoglobin 29.9 pg (27.0-33.0) Mean Corpuscular Hemoglobin Concent 33.6 g/dL (32.0-36.0) Red Cell Distribution Width 12.5 % (11.0-15.5) Platelet Count 242 K/uL (130-400) Mean Platelet Volume 10.6 fL (7.5-10.5) H Immature Granulocyte % (Auto) 0.4 % (0-1) Neutrophils (%) (Auto) 57.4 % (40.0-77.0) Lymphocytes (%) (Auto) 31.6 % (21.0-51.0) Monocytes (%) (Auto) 5.6 % (3.0-13.0) Eosinophils (%) (Auto) 4.3 % (0.0-8.0) Basophils (%) (Auto) 0.7 % (0.0-5.0) Neutrophils # (Auto) 3.1 K/uL (1.8-7.7) Lymphocytes # (Auto) 1.7 K/uL (1.0-4.8) Monocytes # (Auto) 0.3 K/uL (0.1-1.0) Eosinophils # (Auto) 0.23 K/uL (0.00-0.70) Basophils # (Auto) 0.04 K/uL (0.00-0.20) Absolute Immature Granulocyte (auto 0.02 K/uL (0-1) Nucleated Red Blood Cells 0.0 % (0.0-0.19) Sodium Level 143 mmol/L (136-145) Potassium Level 3.7 mmol/L (3.5-5.1) Chloride Level 107 mmol/L (101-111) Carbon Dioxide Level 25 mmol/L (21-32) Blood Urea Nitrogen 16 mg/dL (7-18) Creatinine 0.7 mg/dL (0.5-1.0) Glomerular Filtration Rate Calc 105 mL/min (>90) Random Glucose 95 mg/dL (70-105) Total Calcium 8.6 mg/dL (8.5-10.1) Total Bilirubin 0.3 mg/dL (0.2-1.0) Direct Bilirubin 0.1 mg/dL (0.0-0.3) Aspartate Amino Transf (AST/SGOT) 16 U/L (10-37) Alanine Aminotransferase (ALT/SGPT) 33 U/L (12-78) Alkaline Phosphatase 159 U/L (50-136) H Troponin I High Sensitivity 5 ng/L (4-50) Total Protein 7.0 g/dL (6.0-8.3) Albumin 3.7 g/dL (3.5-5.0) Lipase 45 U/L (16-77) Urine Color YELLOW (YELLOW) Urine Appearance CLEAR (CLEAR) Urine pH 5.5 (5.0-8.0) Urine Specific [place] 1.020 (1.001-1.031) Urine Protein NEGATIVE mg/dL (NEGATIVE) Urine Glucose (UA) NEGATIVE mg/dL (NEGATIVE) Urine Ketones NEGATIVE mg/dL (NEGATIVE) Urine Occult Blood +- (TRACE) (NEGATIVE) H Urine Nitrate NEGATIVE (NEGATIVE) Urine Bilirubin NEGATIVE mg/dL (NEGATIVE) Urine Urobilinogen 0.2 mg/dL (0.2-1.0) Urine Leukocyte Esterase NEGATIVE [place]/uL Labs Reviewed?: Yes ED Course ED Course Orders Procedure Category Date Status Time 12 Lead Ekg Tracing- EKG 03/20/25 Logged Technical 07:51 Cbc With Differential LAB 03/20/25 Complete 07:51 Basic Metabolic Panel LAB 03/20/25 Complete 07:51 Hepatic Function Panel LAB 03/20/25 Complete 07:51 Lipase LAB 03/20/25 Complete 07:51 Troponin I High LAB 03/20/25 Complete Sensitivity 07:51 Ct Abd/Pel Wo Con CT 03/20/25 Resulted Renal/Appy 07:51 Ondansetron 4mg Inj PHA 03/20/25 Complete (Zofran 4mg Inj) 08:00 Ketorolac PHA 03/20/25 Complete Tromethamine 15mg/Ml 08:00 0.9%Nacl 1000ml (Ns PHA 03/20/25 Complete 1000ml) 08:00 Urinalysis Profile LAB 03/20/25 In Process 09:45 Current Medications Medications (Trade) Dose Ordered Sig/L [place] Route PRN Reason Start Time Stop Time Status Last Admin Dose Admin Ketorolac Tromethamine (toRADol) 15 mg ONCE ONCE IV 03/20/25 08:00 03/20/25 08:01 DC 03/20/25 08:13 Ondansetron HCl (zoFRAN 4MG INJ) 4 mg ONCE ONCE IVP 03/20/25 08:00 03/20/25 08:01 DC 03/20/25 08:12 Sodium Chloride 1,000 ml @ 0 mls/hr ONCE ONCE IV 03/20/25 08:00 03/20/25 08:01 DC 03/20/25 08:11 Vital Signs Date Time Temp Pulse Resp B/P (MAP) Pulse Ox O2 Delivery O2 Flow Rate FiO2 03/20/25 07:41 97.9 74 12 136/85 96 Room Air* 0 21 03/20/25 07:34 98.1 74 18 145/95 97 Room Air 0 Medical Decision Making MDM MDM: Differential diagnosis: Rationale: Tests considered and ordered secondary to shared decision making include: Previous outside records reviewed: Old ER visits. Risk of complication and/or morbidity or mortality of patient management: None Medications-Per medication reconciliation Need for hospitalization: Patient does not meet criteria for hospitalization. Need for emergency major/minor surgery: No There are no social concerns with this patient. Prescription drug management Prescriptions will include symptomatic care Patient's prior external medical records from other ER visits were reviewed by me as indicated. Prior testing and results from previous visits were reviewed. Prior tests were taken into account with medical decision making and resource utilization, independent historian/historians were used to obtain complete medical history. I independently interpreted the test that were performed, results were reviewed by me and considered findings on radiology if ordered. Medical management and examination interpretation discussions were had by me with other qualified healthcare professionals as indicated for the patient's care. 49 y.o F with abdominal pain and Acute gastroenteritis, stable exam and VSS, CT negative, rx given, stable for DC. DX & DISP Disposition: Discharge Departure Impression: Primary Impression: Abdominal pain Additional Impression: Acute gastroenteritis Condition: Stable Scripts Dicyclomine HCl (Bentyl) 20 Mg Tab 1 TAB PO BID for irritable bowel symptoms for 10 Days, #20 TAB 0 Refills Prov: RAFFAELE ZAMBRANO MD 03/20/25 Ondansetron (Ondansetron Odt) 4 Mg Tab.rapdis 4 MG PO BID for vomiting for 5 Days, #10 TAB Prov: RAFFAELE ZAMBRANO MD 03/20/25 Referrals: SELF,REFERRAL (PCP) RAFFAELE ZAMBRANO MD Mar 20, 2025 10:37
--- NOTE | 2025-03-20 13:48 | EKG ---
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 : 1975 Requested By: RAFFAELE ZAMBRANO Order Number: [id number] Reading MD: Alli Linder Measurements Intervals [place] Rate: 59 P: 40 PA: 210 QRS: -64 QRSD: 123 T: -11 QT: 433 QTc: 430 Interpretive Statements Sinus rhythm Prolonged PA interval RBBB and LAFB Probable left ventricular hypertrophy Anterior Q waves, possibly due to LVH Compared to ECG 10/02/2024 18:45:13 First degree AV block now present Incomplete right bundle-branch block no longer present ST (T wave) deviation no longer present Myocardial infarct finding no longer present Electronically Signed On 03-20-2025 21:32:37 CDT by Alli Linder Please click the below link to view image of tracing.
== END 2025-03-20 11:22 | disposition home or self-care (01) ==
LOC: EDH 07:32
DX: K52.9 Noninfective gastroenteritis and colitis, unspecified (principal); R10.84 Generalized abdominal pain; F41.9 Anxiety disorder, unspecified; F31.9 Bipolar disorder, unspecified; M19.90 Unspecified osteoarthritis, unspecified site; Z79.899 Other long term (current) drug therapy; Z90.49 Acquired absence of other specified parts of digestive tract
CPT/HCPCS: 99285; 74176; 96374; 96375; 80076; 84484; 80048; 83690; 85025; 81001; 36415; 93005; J1885; J7030; J2405

== ENCOUNTER 2025-03-24 18:31 | Emergency (ER) | payer SELFPAY ==
[~2025-03-24] VITALS: Ht 154.9 cm; Wt 83.5 kg
[~2025-03-24 18:31] MED LIST changes: +DICY20TA2 PO; +ONDA-243 PO
[2025-03-24 19:41] VITALS: BP 178/95; PULSE 87; RESP 18; TEMP 97.9; O2SAT 97
--- NOTE | 2025-03-24 19:54 | ERN ---
ED Note History of Present Illness Stated Complaint: FALL Chief Complaint: Mechanical Fall Time Seen by MD: 18:38 Time Seen by Midlevel: 18:40 Dictation: 49-year-old female with no past medical history coming in with complaints of back pain, left knee pain, left elbow pain status post ground level fall. Patient states she was at a convenience store and slipped on a blueberry. Patient denies any head injury, no LOC. Patient states she fell backwards landing on her buttocks however states one leg was forward and one like was backward. Ambulatory. No obvious deformities. Allergies: Coded Allergies: No Known Allergies (Unverified Allergy, Unknown, 11/15/18) Home Meds Active Scripts Dicyclomine HCl (Bentyl) 20 Mg Tab, 1 TAB PO BID for irritable bowel symptoms for 10 Days, #20 TAB 0 Refills Prov:RAFFAELE ZAMBRANO MD 03/20/25 Ondansetron (Ondansetron Odt) 4 Mg Tab.rapdis, 4 MG PO BID for vomiting for 5 Days, #10 TAB Prov:RAFFAELE ZAMBRANO MD 03/20/25 Guaifenesin (Robitussin Syrp) 100 Mg/5 Ml Syrp, 5-10 ML PO QID for cough for 6 Days, #240 ML 0 Refills Prov:DERRELL ALEXANDER CERTIFIED RESIDENTIAL MEDICATION AIDE 03/12/25 Benzonatate (Benzonatate) 200 Mg Capsule, 1 CAP PO TIDP PRN for cough for 7 Days, #21 CAP 0 Refills Prov:EPI DIAZ MD 02/19/25 Benzonatate (Benzonatate) 200 Mg Capsule, 1 CAP PO TID for cough for 10 Days, #30 CAP 0 Refills Prov:EPI DIAZ MD 02/19/25 Benzonatate (Tessalon Perles) 100 Mg Cap, 200 MG PO TID for cough, #60 CAP 0 Refills Prov:YANDEL CASTILLO NP 01/03/25 Ibuprofen (Ibuprofen 800 mg Tab) 800 Mg Tab, 800 MG PO Q8H PRN for fever or pain, #30 TAB 0 Refills Prov:YANDEL CASTILLO NP 01/03/25 Methylprednisolone (Medrol) 4 Mg Tab.ds.pk, 1 TAB PO AD for 6 Days, #21 TAB 0 Refills 6 on day 1 then reduce by one tablet daily until gone Prov:YANDEL CASTILLO NP 01/03/25 Amoxicillin/Potassium Clav (Amox Tr-K Clv 875-125 mg Tab) 875 Mg-125 Mg Tablet, 1 EACH PO BID for 10 Days, #20 TAB 0 Refills Prov:YANDEL CASTILLO NP 01/03/25 Pantoprazole Sodium (Protonix) 40 Mg Ectab, 1 TAB PO DAILY for 30 Days, #30 TAB 0 Refills Prov:RENO WILLIS MD 10/02/24 Butalb/Acetaminophen/Caffeine (Fioricet) 50 Mg-325 Mg-40 Mg Tab, 1 TAB PO QID PRN for headache for 10 Days, #30 TAB Prov:RUDDY CORREA DO 07/19/24 Fluticasone Propionate (Flonase Nasal [place]) 50 Mcg/Actuation [place], 50 MCG NASAL QID, #1 SPRAY Prov:KINGA NORRIS MD 05/08/24 Amoxicillin (Amoxicillin) 500 Mg Tablet, 500 MG PO TID for 7 Days, #21 TAB Prov:KINGA NORRIS MD 05/08/24 Ibuprofen (Ibuprofen 800 mg Tab) 800 Mg Tab, 800 MG PO Q8H PRN for fever or pain, #30 TAB 0 Refills Prov:YANDEL CASTILLO NP 04/05/24 Amoxicillin/Potassium Clav (Amox Tr-K Clv 875-125 mg Tab) 875 Mg-125 Mg Tablet, 1 EACH PO BID for 10 Days, #20 TAB 0 Refills Prov:YANEDL CASTILLO NP 04/05/24 Fexofenadine/Pseudoephedrine (Erma-D 12 Hour Tablet) 60 Mg-120 Mg Tab.er.12h, 1 EACH PO DAILY for 10 Days, #10 TAB Prov:RENO WILLIS MD 02/23/24 Fluticasone Propionate (Flonase Allergy Relief) 50 Mcg/Actuation [place].susp, 9.9 ML NS TID for 14 Days, #1 BOTTLE Prov:RENO WILLIS MD 02/23/24 Amoxicillin/Potassium Clav (Amox Tr-K Clv 875-125 mg Tab) 875 Mg-125 Mg Tablet, 1 EACH PO BID for 7 Days, #14 TAB Prov:ASYA SMITH 02/09/24 Loratadine (Loratadine) 10 Mg Tablet, 10 MG PO DAILY for 30 Days, #30 TAB Prov:ASYA SMITH 02/09/24 Methylprednisolone (Medrol) 4 Mg Tab.ds.pk, 4 MG PO AD, #1 PACK Prov:CHELSEA ENGLAND 01/28/24 Azithromycin (Azithromycin) 250 Mg Tablet, 250 MG PO DAILY for 5 Days, #5 TAB Prov:CHELSEA ENGLAND 01/28/24 Cephalexin (Cephalexin) 500 Mg Tablet, 500 MG PO TID for 10 Days, #30 TAB Prov:RIGO MIKE MD 03/30/23 Reported Medications [Turmeric] No Conflict Check, 1 TAB PO AM 09/17/22 [Mvi] No Conflict Check, 1 TAB PO AM 09/17/22 [Vitamin D] No Conflict Check, 1 TAB PO AM 09/17/22 [Fish Oil] No Conflict Check, 1 TAB PO AM 09/17/22 Acetaminophen with Codeine (Acetaminophen-Cod #3 Tablet) 1 Each Tablet, 1 EACH PO Q4H PRN for PAIN, TAB 09/17/22 Buspirone HCl (Buspar) 15 Mg Tab, 15 MG PO TID, TAB 04/28/22 Bupropion HCl (Wellbutrin Sr) 150 Mg Srtab, 150 MG PO DAILY for BIPOLAR, TAB.SR 04/28/22 Carbamazepine (Tegretol) 200 Mg Tablet, 200 MG PO AM for BIPOLAR, TAB 04/28/22 Past Medical History Past Medical History: Anxiety, Arthritis, Bipolar, Other Additional Past Medical Hx: ra, raynauds Surgical History: Cholecystectomy, Surgical History Other: LEFT OOPHRECTOMY Family History: Negative Social History: Negative, Lives with family, Other History: Not Applicable : 4 Para: 4 Aborts: 0 Review of System Dictation Constitutional: Negative for fever,chills, and weight loss Eyes: Negative for injury, pain,redness, and discharge ENT: Negative for injury,pain or swelling Cardiovascular: Negative for chest pain, palpitations, and edema Respiratory: Negative for shortness of breath, cough, and wheezing, Abdomen/GI: Negative for abdominal pain, nausea, vomiting, diarrhea, and c onstipation Back: Complaining of lower back pain : Negative for injury, bleeding and discharge MS/Extremity: Negative for injury and deformity, complaining of left knee pain, left elbow pain, left ankle pain Skin: Negative for rash, and discoloration Neuro: Negative for headache, weakness, numbness, tingling, and seizure Psych: Negative for suicide ideation, homicidal ideation, and hallucinations Review of Systems: was completed Initial Vital Sign VS Vital Signs Date Time Temp Pulse Resp B/P (MAP) Pulse Ox O2 Delivery O2 Flow Rate FiO2 03/24/25 18:32 97.9 87 18 178/95 97 03/24/25 19:41 Room Air* 0 21 Physical Exam Dictation General: awake, alert, NAD Head/Face: Normocephalic, atraumatic Eyes: PERRL, EOMI, vision at baseline ENT: oral cavity clear, TMs clear, no signs of infection Neck: Trachea midline, supple, no nuchal rigidity Cardiovascular: RRR, normal S1/S2, No MRGs, no JVD Respiratory: CTAB, no respiratory distress, No rales or wheezes Abdomen: Soft, non-tender, non-distended, normal bowel sounds, no guarding or rebound. Skin: Warm, dry, normal turgor, no rash MS/Extremity: Pulses equal, no cyanosis, neurovascular intact, FROM Neuro: COAx4, GCS 15, strength 5/5, CN 2-12 intact, normal cerebellar exam, normal gait, Psych: Normal behavior, mood, and affect normal ED Course ED Course Orders Procedure Category Date Status Time Knee 3vws Lt RAD 03/24/25 Taken 19:14 Lumbar Spine 2-3vws RAD 03/24/25 Taken 19:14 Elbow Comp 3+Vws Lt RAD 03/24/25 Taken 19:14 Methocarbamol PHA 03/24/25 Complete (Methocarbamol) 19:14 Ketorolac PHA 03/24/25 Complete Tromethamine 15mg/Ml 19:14 Ankle 2vws Lt RAD 03/24/25 Taken 20:31 *Nursing CPOE 03/24/25 Transmitted Communication: 21:10 Current Medications Medications (Trade) Dose Ordered Sig/[place] Route PRN Reason Start Time Stop Time Status Last Admin Dose Admin Ketorolac Tromethamine (toRADol) 15 mg ONCE STAT IM 03/24/25 19:14 03/24/25 19:16 DC 03/24/25 19:27 Methocarbamol (methoCARBamol) 1,000 mg ONCE STAT PO 03/24/25 19:14 03/24/25 19:16 DC 03/24/25 19:27 Vital Signs Date Time Temp Pulse Resp B/P (MAP) Pulse Ox O2 Delivery O2 Flow Rate FiO2 03/24/25 19:41 97.9 87 18 178/95 97 Room Air* 0 21 03/24/25 18:32 97.9 87 18 178/95 97 Medical Decision Making MDM Plain films of the patient's L-spine left ankle left elbow and left knee are all negative for fractures or dislocations. DX & DISP Disposition: Discharge Departure Impression: Primary Impression: Ground-level fall Condition: Stable Additional Instructions: The x-rays of your left knee left elbow lower back and left ankle are all negative for fractures or dislocations. We will put an Davy wrap on your left ankle for pain control and also to reduce the swelling. You can keep your left leg elevated your left arm elevated and treat them with ice to relieve the pain. A low counter intuitive the best thing you can do to help his actually use your joints to help mobilize fluid out of them and it will also decrease the pain. For pain you can take Tylenol and ibuprofen. I expect it will take several days before your pain completely goes away and you are correct it may hurt tomorrow worse than today. Please follow-up eventually with your primary care physician if your pain does not go away in the next week. Referrals: SELF,REFERRAL (PCP) JANNY WATSON NP Mar 24, 2025 19:54 EPI DIAZ MD Mar 24, 2025 21:17
--- NOTE | 2025-03-24 21:14 | HMCIMG ---
EXAM: CR Lumbar Spine, 2 View. CLINICAL HISTORY: fall COMPARISON: None provided. FINDINGS: BONES: No acute fracture or aggressive appearing osseous lesion. ALIGNMENT: Alignment is within normal limits. No significant scoliosis. DISCS / DEGENERATIVE CHANGES: The disc spaces are preserved. SOFT TISSUES: The soft tissues are unremarkable. IMPRESSION: No acute lumbar spine abnormality evident. /[place]
--- NOTE | 2025-03-24 21:15 | HMCIMG ---
EXAM: CR left elbow, 3 View. CLINICAL HISTORY: fall COMPARISON: None provided. FINDINGS: There is concern for nondisplaced fracture within the olecranon fossa of the distal humerus. Recommend CT imaging of the left elbow for further evaluation. Moderate elbow joint effusion. Joint spaces remain anatomically aligned. IMPRESSION: 1. Possible nondisplaced fracture in the olecranon fossa of the distal humerus with moderate elbow joint effusion. 2. CT imaging of the left elbow recommended for further evaluation. /[place]
--- NOTE | 2025-03-24 21:15 | HMCIMG ---
EXAM: CR left ankle, 3 View. CLINICAL HISTORY: fall, pain COMPARISON: None provided. FINDINGS: BONES: No acute fracture or aggressive appearing osseous lesion. JOINTS: The joint spaces appear within normal limits. No dislocation. No radiographic evidence of a joint effusion. SOFT TISSUES: Soft tissue edema at the lateral malleolus. IMPRESSION: 1. No acute osseous injury. 2. Soft tissue edema at the lateral malleolus. /[place]
--- NOTE | 2025-03-24 21:16 | HMCIMG ---
EXAM: CR Left Knee, 3 View. CLINICAL HISTORY: fall COMPARISON: None provided. FINDINGS: BONES: No acute fracture or aggressive appearing osseous lesion. JOINTS: The joint spaces show no significant degenerative disease. There is no joint effusion appreciated. SOFT TISSUES: The soft tissues are unremarkable. IMPRESSION: 1. No acute findings. /[place]
--- NOTE | 2025-03-24 21:20 | NUR ---
PER [employer]UTIONS ENGINEER, DAVID WRAP APPLIED TO LEFT ANKLE. PATIENT EDUCATED ON DAVID WRAP USE AND VERBALIZED UNDERSTANDING.
== END 2025-03-24 21:22 | disposition home or self-care (01) ==
LOC: EDH 18:31
DX: M25.562 Pain in left knee (principal); M54.9 Dorsalgia, unspecified; M25.522 Pain in left elbow; F31.9 Bipolar disorder, unspecified; F41.9 Anxiety disorder, unspecified; I73.00 Raynaud's syndrome without gangrene; M19.90 Unspecified osteoarthritis, unspecified site; Z79.899 Other long term (current) drug therapy; Z90.49 Acquired absence of other specified parts of digestive tract; W01.0XXA Fall on same level from slipping, tripping and stumbling without subsequent striking against object, initial encounter; Y93.89 Activity, other specified; Y92.89 Other specified places as the place of occurrence of the external cause; Y99.8 Other external cause status
CPT/HCPCS: 99284; 73600; 73080; 73562; 72100; 96372; J1885

== ENCOUNTER 2025-03-25 18:42 | Emergency (ER) | payer SELFPAY ==
[~2025-03-25] VITALS: Ht 162.6 cm; Wt 83.0 kg
--- NOTE | 2025-03-25 19:20 | ERN ---
ED Note History of Present Illness Stated Complaint: CALLED TO RETURN TO ER FOR ELBOW FX Chief Complaint: Elbow Problem Time Seen by : 19:04 Dictation: PATIENT IS A 49-YEAR-OLD FEMALE COMING IN TODAY WITH MULTIPLE COMPLAINTS FROM A RECENT SLIP FALL AT A STORE. SHE WAS SEEN HERE LAST NIGHT FOR THE SAME COMPLAINTS AND HAD AN X-RAY DONE OF HER LEFT ELBOW THAT WAS READ INITIALLY NEGATIVE. SHE WAS CALLED BACK THIS MORNING WITH THERE WAS A POSSIBLE FRACTURE IN THE LEFT OLECRANON FOSSA. NEUROVASCULAR CMS INTACT TO LEFT HAND. Allergies: Coded Allergies: No Known Allergies (Unverified Allergy, Unknown, 11/15/18) Home Meds Active Scripts Dicyclomine HCl (Bentyl) 20 Mg Tab, 1 TAB PO BID for irritable bowel symptoms f or 10 Days, #20 TAB 0 Refills Prov:RAFFAELE ZAMBRANO MD 03/20/25 Ondansetron (Ondansetron Odt) 4 Mg Tab.rapdis, 4 MG PO BID for vomiting for 5 Days, #10 TAB Prov:RAFFAELE ZAMBRANO MD 03/20/25 Guaifenesin (Robitussin Syrp) 100 Mg/5 Ml Syrp, 5-10 ML PO QID for cough for 6 Days, #240 ML 0 Refills Prov:DERRELL ALEXANDER 03/12/25 Benzonatate (Benzonatate) 200 Mg Capsule, 1 CAP PO TIDP PRN for cough for 7 Days, #21 CAP 0 Refills Prov:EPI DIAZ MD 02/19/25 Benzonatate (Benzonatate) 200 Mg Capsule, 1 CAP PO TID for cough for 10 Days, #30 CAP 0 Refills Prov:EPI DIAZ MD 02/19/25 Benzonatate (Tessalon Perles) 100 Mg Cap, 200 MG PO TID for cough, #60 CAP 0 Refills Prov:YANDEL CASTILLO NP 01/03/25 Ibuprofen (Ibuprofen 800 mg Tab) 800 Mg Tab, 800 MG PO Q8H PRN for fever or pain, #30 TAB 0 Refills Prov:YANDEL CASTILLO NP 01/03/25 Methylprednisolone (Medrol) 4 Mg Tab.ds.pk, 1 TAB PO AD for 6 Days, #21 TAB 0 Refills 6 on day 1 then reduce by one tablet daily until gone Prov:YANDEL CASTILLO NP 01/03/25 Amoxicillin/Potassium Clav (Amox Tr-K Clv 875-125 mg Tab) 875 Mg-125 Mg Tablet, 1 EACH PO BID for 10 Days, #20 TAB 0 Refills Prov:YANDEL CASTILLO NP 01/03/25 Pantoprazole Sodium (Protonix) 40 Mg Ectab, 1 TAB PO DAILY for 30 Days, #30 TAB 0 Refills Prov:RENO WILLIS MD 10/02/24 Butalb/Acetaminophen/Caffeine (Fioricet) 50 Mg-325 Mg-40 Mg Tab, 1 TAB PO QID PRN for headache for 10 Days, #30 TAB Prov:RUDDY CORREA DO 07/19/24 Fluticasone Propionate (Flonase Nasal [place]) 50 Mcg/Actuation [place], 50 MCG NASAL QID, #1 SPRAY Prov:KINGA NORRIS MD 05/08/24 Amoxicillin (Amoxicillin) 500 Mg Tablet, 500 MG PO TID for 7 Days, #21 TAB Prov:KINGA NORRSI MD 05/08/24 Ibuprofen (Ibuprofen 800 mg Tab) 800 Mg Tab, 800 MG PO Q8H PRN for fever or pain, #30 TAB 0 Refills Prov:YANDEL CASTILLO NP 04/05/24 Amoxicillin/Potassium Clav (Amox Tr-K Clv 875-125 mg Tab) 875 Mg-125 Mg Tablet, 1 EACH PO BID for 10 Days, #20 TAB 0 Refills Prov:YANDEL CASTILLO NP 04/05/24 Fexofenadine/Pseudoephedrine (Erma-D 12 Hour Tablet) 60 Mg-120 Mg Tab.er.12h, 1 EACH PO DAILY for 10 Days, #10 TAB Prov:RENO WLILIS MD 02/23/24 Fluticasone Propionate (Flonase Allergy Relief) 50 Mcg/Actuation [place].susp, 9.9 ML NS TID for 14 Days, #1 BOTTLE Prov:RENO WILLIS MD 02/23/24 Amoxicillin/Potassium Clav (Amox Tr-K Clv 875-125 mg Tab) 875 Mg-125 Mg Tablet, 1 EACH PO BID for 7 Days, #14 TAB Prov:ASYA SMITH 02/09/24 Loratadine (Loratadine) 10 Mg Tablet, 10 MG PO DAILY for 30 Days, #30 TAB Prov:ASYA SMITH 02/09/24 Methylprednisolone (Medrol) 4 Mg Tab.ds.pk, 4 MG PO AD, #1 PACK Prov:CHELSEA ENGLAND 01/28/24 Azithromycin (Azithromycin) 250 Mg Tablet, 250 MG PO DAILY for 5 Days, #5 TAB Prov:CHELSEA ENGLAND 01/28/24 Cephalexin (Cephalexin) 500 Mg Tablet, 500 MG PO TID for 10 Days, #30 TAB Prov:RIGO MIKE MD 03/30/23 Reported Medications [Turmeric] No Conflict Check, 1 TAB PO AM 09/17/22 [Mvi] No Conflict Check, 1 TAB PO AM 09/17/22 [Vitamin D] No Conflict Check, 1 TAB PO AM 09/17/22 [Fish Oil] No Conflict Check, 1 TAB PO AM 09/17/22 Acetaminophen with Codeine (Acetaminophen-Cod #3 Tablet) 1 Each Tablet, 1 EACH PO Q4H PRN for PAIN, TAB 09/17/22 Buspirone HCl (Buspar) 15 Mg Tab, 15 MG PO TID, TAB 04/28/22 Bupropion HCl (Wellbutrin Sr) 150 Mg Srtab, 150 MG PO DAILY for BIPOLAR, TAB.SR 04/28/22 Carbamazepine (Tegretol) 200 Mg Tablet, 200 MG PO AM for BIPOLAR, TAB 04/28/22 Past Medical History Past Medical History: Anxiety, Arthritis, Bipolar, Other Additional Past Medical Hx: ra, raynauds Surgical History: Hysterectomy, Cholecystectomy, Surgical History Other: LEFT OOPHRECTOMY Family History: Negative Social History: Negative, Lives with family, Other History: Not Applicable : 4 Para: 4 Aborts: 0 RN Note Reviewed/Agreed w/PFSH: Yes Review of System Dictation CONSTITUTIONAL: NEGATIVE EXCEPT FOR HPI HEAD/FACE: NEGATIVE EXCEPT FOR HPI EENT: NEGATIVE EXCEPT FOR HPI RESPIRATORY: NEGATIVE EXCEPT FOR HPI GASTROINTESTINAL/ABDOMINAL: NEGATIVE EXCEPT FOR HPI GENITOURINARY: NEGATIVE EXCEPT FOR HPI MUSCULOSKELETAL: NEGATIVE EXCEPT FOR HPI LEFT ELBOW PAIN INTEGUMENTARY: NEGATIVE EXCEPT FOR HPI NEUROLOGICAL/PSYCH: NEGATIVE EXCEPT FOR HPI HEMATOLOGIC/LYMPHATIC: NEGATIVE EXCEPT FOR HPI ALL SYSTEMS NEGATIVE, EXCEPT NOTED ABOVE. 13 POINT REVIEW OF SYSTEMS ASSESSED AND ALL NEGATIVE EXCEPT FOR ABOVE. Initial Vital Sign VS Vital Signs Date Time Temp Pulse Resp B/P (MAP) Pulse Ox O2 Delivery O2 Flow Rate FiO2 03/25/25 18:43 98.8 69 16 148/101 96 Room Air 0 03/25/25 19:54 21 Physical Exam Dictation VITAL SIGNS REVIEWED GENERAL APPEARANCE: ALERT, ORIENTED X 3, MILD ACUTE DISTRESS, WELL DEVELOPED, NOURISHED. HEAD AND FACE: NON-TRAUMATIC. EYES: PERRL, PINK CONJUNCTIVAS, EYELID NO TRAUMA, ANTERIOR CHAMBER WITH ARCUS SENILIS. EARS: PINNAS INTACT AND NO SIGNS OF TRAUMA OR ERYTHEMA EAR CANALS CLEAR AND NO DISCHARGE TM NO ERYTHEMA NOSE: NO DISCHARGE, NO BLEEDING. OROPHARYNX: MOUTH NORMAL, TONGUE PINK, PHARYNX CLEAR,NO ERYTHEMA, TONSILS NO EXUDATES, NO ABSCESSES NOTED, MUCOUS MEMBRANE MOIST NECK: SUPPLE, NON-TENDER, NO THYROMEGALY, NO MASSES, NO JVD, NO BRUITS BREAST:DEFERRED CHEST:NO TENDERNESS, NO CREPITUS, NO PARADOXICAL MOVEMENT, NO RETRACTIONS LUNGS:CLEAR, WELL-VENTILATED, SYMMETRIC, NO RALES, NO WHEEZING, NO RHONCHI, NO STRIDOR, GOOD BREATH SOUNDS BILATERALLY HEART: REGULAR RATE, REGULAR RHYTHM, NO MURMUR, NO GALLOPS VASCULAR: NO PERIPHERAL EDEMA, ABDOMEN: SOFT, POSITIVE BOWEL SOUNDS, NONDISTENDED, NO GUARDING, NONTENDER, NO REBOUND, NO MASSES NO HEPATOMEGALY, NO SPLENOMEGALY, NO ROMANO'S SIGN, NO HERNIAS. RECTAL: DEFERRED GENITAL: DEFERRED NEUROLOGICAL: NORMAL SPEECH, MOTOR FUNCTION INTACT, SENSORY FUNCTION INTACT MUSCULOSKELETAL: NECK NONTENDER, FULL RANGE OF MOTION, BACK NONTENDER, FULL RANGE OF MOTION, EXTREMITIES: LEFT ANKLE PAIN WITH AN DAVID WRAP IN PLACE. TENDERNESS TO THE LEFT ELBOW. NEUROVASCULAR CMS INTACT TO HAND. SKIN: COLOR PINK, DRY, NO TURGOR, NO RASH, NO LACERATIONS, NO ABRASIONS, NO CONTUSIONS. LYMPHATIC: DEFERRED Results (Laboratory/Radiology) Laboratory/Radiology LEFT ELBOW X-RAY READING FROM ER VISIT 03/24/2025 REASON: fall ORDERING PHYSICIAN: JANNY WATSON ULTRASOUND TECH PROCEDURE: [id number] LT - ELBOW COMP 3+VWS LT EXAM: CR left elbow, 3 View. CLINICAL HISTORY: fall COMPARISON: None provided. FINDINGS: There is concern for nondisplaced fracture within the olecranon fossa of the distal humerus. Recommend CT imaging of the left elbow for further evaluation. Moderate elbow joint effusion. Joint spaces remain anatomically aligned. IMPRESSION: 1. Possible nondisplaced fracture in the olecranon fossa of the distal humerus with moderate elbow joint effusion. 2. CT imaging of the left elbow recommended for further evaluation. /[facility] Reviewed?: Yes ED Course ED Course Orders Procedure Category Date Status Time Elbow Splint COLETTE 03/25/25 In Process 19:15 Sling COLETTE 03/25/25 In Process 19:15 Vital Signs Date Time Temp Pulse Resp B/P (MAP) Pulse Ox O2 Delivery O2 Flow Rate FiO2 03/25/25 19:54 98.2 66 16 140/90 98 Room Air* 0 21 03/25/25 18:43 98.8 69 16 148/101 96 Room Air 0 1918/PATIENT WILL BE PLACED IN POSTERIOR LONG-ARM SPLINT WITH SLING. SHE WILL BE ADVISED TO FOLLOW UP WITH DR. LULA ROJAS/ORTHOPEDIC SURGEON AND CONTINUE HER PAIN MEDS FROM HER VISIT YESTERDAY. SHE ALSO STATES SHE HAS A AN ELECTRIC DOLLY OPERATOR FROM HER FALL, I ADVISED HER TO FOLLOW BACK UP WITH HIM IF SHE HAS ANY TROUBLE GETTING INTO SEE DR. ROJAS AND HER TURN HE CAN HELP HER GET INTO A ORTHOPEDICS SURGEON'S [id number]/PATIENT WAS PLACED IN A POSTERIOR LONG-ARM SPLINT. DISTAL NEUROVASCULAR CMS INTACT POST PLACEMENT. Medical Decision Making MDM MEDICAL DISCHARGE MAKING BASED ON A RECALL FROM A LEFT ELBOW X-RAY THAT WAS PERFORMED YESTERDAY AT [facility] [place]. IT WAS DIAGNOSED WITH A POSSIBLE NONDISPLACED POSTERIOR FOSSA FRACTURE LEFT ELBOW. SPLINT WAS PLACED WITH SLING PATIENT REFERRED TO DR. LULA ROJAS/ORTHOPEDIC SURGEON FOLLOW UP WITH THE IN THE NEXT FEW DAYS. CONTINUE ALL MEDICATIONS AND TREATMENTS FROM HER VISIT YESTERDAY DX & DISP Disposition: Discharge Departure Impression: Primary Impression: Closed fracture of left olecranon process Additional Impression: Fall Condition: Stable Additional Instructions: FOLLOW-UP WITH PRIMARY CARE PROVIDER IN 1 TO 2 DAYS. TAKE MEDICATIONS DIRECTED HERE IN THE EMERGENCY ROOM. OKAY TO CONTINUE HOME MEDICATIONS UNLESS OTHERWISE DISCUSSED DURING YOUR VISIT IN THE EMERGENCY ROOM TODAY. RETURN TO YOUR NEAREST EMERGENCY ROOM IF SYMPTOMS WORSEN OR IF THERE IS NO IMPROVEMENT. CALL 911 IF YOU NEED IMMEDIATE ASSISTANCE. TAKE TYLENOL OR MOTRIN OVER-THE- COUNTER NEEDED AND IF NO CONTRAINDICATIONS ARE PRESENT. INCREASE ORAL HYDRATION. A WOUND CULTURE OR URINE CULTURE WAS ORDERED HERE IN THE EMERGENCY ROOM DEPARTMENT PLEASE FOLLOW-UP WITH PRIMARY CARE PROVIDER AND ADVISE THEM TO GET REPEAT PORTS FROM OUR FACILITY. IF YOU HAD ANY DAVID WRAP/SPLINTS THAT WERE APPLIED HERE, PLEASE DO NOT REMOVE THEM UNTIL YOU SEE YOUR PRIMARY CARE OR SPECIALTY. SLING/SPLINT/NO WEIGHT-BEARING WITH LEFT ARM UNTIL CLEARED BY ORTHOPEDIC SURGEON, CALL HIM FOR AN APPOINTMENT TOMORROW. CONTINUE YOUR MEDICATIONS AND TREATMENTS FROM YOUR ER VISIT YESTERDAY. IF YOU HAVE ANY TROUBLE GETTING INTO THE ORTHOPEDIC SURGEON, SEE YOUR ELECTRIC DOLLY OPERATOR FOR REFERRAL. Referrals: SELF,REFERRAL (PCP) LULA ROJAS MD Time of Disposition: 20:04 I have reviewed the case, and I agree with, Diagnosis and Plan YANDEL CASTILLO NP Mar 25, 2025 19:20
[2025-03-25 19:54] VITALS: BP 140/90; PULSE 66; RESP 16; TEMP 98.3; O2SAT 98
== END 2025-03-25 20:14 | disposition home or self-care (01) ==
LOC: EDH 18:42
DX: S52.025D Nondisplaced fracture of olecranon process without intraarticular extension of left ulna, subsequent encounter for closed fracture with routine healing (principal); F31.9 Bipolar disorder, unspecified; F41.9 Anxiety disorder, unspecified; M19.90 Unspecified osteoarthritis, unspecified site; Z79.899 Other long term (current) drug therapy; Z90.710 Acquired absence of both cervix and uterus; Z90.49 Acquired absence of other specified parts of digestive tract; W01.0XXD Fall on same level from slipping, tripping and stumbling without subsequent striking against object, subsequent encounter
CPT/HCPCS: 29105; 99283

== ENCOUNTER 2025-04-11 11:16 | Emergency (ER) | payer SELFPAY ==
[~2025-04-11] VITALS: Ht 162.6 cm; Wt 81.6 kg
[2025-04-11 12:09] LABS: RAPID GROUP A STREP negative (NEGATIVE)
[2025-04-11 12:51] LABS: SARS-CoV-2, RNA, NAAT NEGATIVE SARS CoV-2 (NEGATIVE)
[2025-04-11] MEDS ORDERED: AMOX1TAB16 PO (12:59)
[2025-04-11] MEDS ORDERED: FLUT16H NS (12:59)
[2025-04-11] MEDS ORDERED: LORA10TA7 PO (12:59)
--- NOTE | 2025-04-11 12:59 | ERN ---
General Chief Complaint: Multiple Complaints Stated Complaint: MULTIPLE COMPLAINTS Time Seen by MD: 11:16 Source: patient History of Present Illness Initial Comments Patient is a 49-year-old female coming in complaining of URI symptoms. Per patient she has had right ear discomfort as well as sore throat for a couple of days. She states that she has not had any fever yet. Allergies: Coded Allergies: No Known Allergies (Unverified Allergy, Unknown, 11/15/18) Home Meds Active Scripts Dicyclomine HCl (Bentyl) 20 Mg Tab, 1 TAB PO BID for irritable bowel symptoms for 10 Days, #20 TAB 0 Refills Prov:RAFFAELE ZAMBRANO MD 03/20/25 Ondansetron (Ondansetron Odt) 4 Mg Tab.rapdis, 4 MG PO BID for vomiting for 5 Days, #10 TAB Prov:RAFFAELE ZAMBRANO MD 03/20/25 Guaifenesin (Robitussin Syrp) 100 Mg/5 Ml Syrp, 5-10 ML PO QID for cough for 6 Days, #240 ML 0 Refills Prov:DERRELL ALEXANDER 03/12/25 Benzonatate (Benzonatate) 200 Mg Capsule, 1 CAP PO TIDP PRN for cough for 7 Days, #21 CAP 0 Refills Prov:EPI DIAZ MD 02/19/25 Benzonatate (Benzonatate) 200 Mg Capsule, 1 CAP PO TID for cough for 10 Days, #30 CAP 0 Refills Prov:EPI DIAZ MD 02/19/25 Benzonatate (Tessalon Perles) 100 Mg Cap, 200 MG PO TID for cough, #60 CAP 0 Refills Prov:YANDEL CASTILLOP 01/03/25 Ibuprofen (Ibuprofen 800 mg Tab) 800 Mg Tab, 800 MG PO Q8H PRN for fever or pain, #30 TAB 0 Refills Prov:YANDEL CASTILLOP 01/03/25 Methylprednisolone (Medrol) 4 Mg Tab.ds.pk, 1 TAB PO AD for 6 Days, #21 TAB 0 Refills 6 on day 1 then reduce by one tablet daily until gone Prov:YANDEL CASTILLO FLIGHT COMMUNICATIONS SPECIALIST 01/03/25 Amoxicillin/Potassium Clav (Amox Tr-K Clv 875-125 mg Tab) 875 Mg-125 Mg Tablet, 1 EACH PO BID for 10 Days, #20 TAB 0 Refills Prov:YANDEL CASTILLOP 01/03/25 Pantoprazole Sodium (Protonix) 40 Mg Ectab, 1 TAB PO DAILY for 30 Days, #30 TAB 0 Refills Prov:RENO WILLIS MD 10/02/24 Butalb/Acetaminophen/Caffeine (Fioricet) 50 Mg-325 Mg-40 Mg Tab, 1 TAB PO QID PRN for headache for 10 Days, #30 TAB Prov:RUDDY CORREA DO 07/19/24 Fluticasone Propionate (Flonase Nasal [place]) 50 Mcg/Actuation [place], 50 MCG NASAL QID, #1 SPRAY Prov:KINGA NORRIS MD 05/08/24 Amoxicillin (Amoxicillin) 500 Mg Tablet, 500 MG PO TID for 7 Days, #21 TAB Prov:KINGA NORRIS MD 05/08/24 Ibuprofen (Ibuprofen 800 mg Tab) 800 Mg Tab, 800 MG PO Q8H PRN for fever or pain, #30 TAB 0 Refills Prov:YANDEL CASTILLO 04/05/24 Amoxicillin/Potassium Clav (Amox Tr-K Clv 875-125 mg Tab) 875 Mg-125 Mg Tablet, 1 EACH PO BID for 10 Days, #20 TAB 0 Refills Prov:YANDEL CASTILLO 04/05/24 Fexofenadine/Pseudoephedrine (Erma-D 12 Hour Tablet) 60 Mg-120 Mg Tab.er.12h, 1 EACH PO DAILY for 10 Days, #10 TAB Prov:RENO WILLIS MD 02/23/24 Fluticasone Propionate (Flonase Allergy Relief) 50 Mcg/Actuation [place].susp, 9.9 ML NS TID for 14 Days, #1 BOTTLE Prov:RNEO WILLIS MD 02/23/24 Amoxicillin/Potassium Clav (Amox Tr-K Clv 875-125 mg Tab) 875 Mg-125 Mg Tablet, 1 EACH PO BID for 7 Days, #14 TAB Prov:ASYA SMITH 02/09/24 Loratadine (Loratadine) 10 Mg Tablet, 10 MG PO DAILY for 30 Days, #30 TAB Prov:ASYA SMITH 02/09/24 Methylprednisolone (Medrol) 4 Mg Tab.ds.pk, 4 MG PO AD, #1 PACK Prov:SAMANTACHELSEAANDREW PAC 01/28/24 Azithromycin (Azithromycin) 250 Mg Tablet, 250 MG PO DAILY for 5 Days, #5 TAB Prov:SAMANTAANDREW PAC 01/28/24 Cephalexin (Cephalexin) 500 Mg Tablet, 500 MG PO TID for 10 Days, #30 TAB Prov:RIGO MIKE MD 03/30/23 Reported Medications [Turmeric] No Conflict Check, 1 TAB PO AM 09/17/22 [Mvi] No Conflict Check, 1 TAB PO AM 09/17/22 [Vitamin D] No Conflict Check, 1 TAB PO AM 09/17/22 [Fish Oil] No Conflict Check, 1 TAB PO AM 09/17/22 Acetaminophen with Codeine (Acetaminophen-Cod #3 Tablet) 1 Each Tablet, 1 EACH PO Q4H PRN for PAIN, TAB 09/17/22 Buspirone HCl (Buspar) 15 Mg Tab, 15 MG PO TID, TAB 04/28/22 Bupropion HCl (Wellbutrin Sr) 150 Mg Srtab, 150 MG PO DAILY for BIPOLAR, TAB.SR 04/28/22 Carbamazepine (Tegretol) 200 Mg Tablet, 200 MG PO AM for BIPOLAR, TAB 04/28/22 Past Medical History Past Medical History: Other Medical History Other: RAYNOUDS, BIPOLAR ОЛЬГА, RHEUMATOID ARTHIRITIS Past Surgical History: Hysterectomy, Cholecystectomy, Other, Surgical History Other: LIPOMA REMOVAL FROM BACK, LEFFT OVARY REMOVAL Family History Family History: Negative Social History Social History: Negative, Lives with family, Other Female( History) History: Not Applicable : 4 Para: 4 Aborts: 0 ROS Dictation CONSTITUTIONAL: No chills, no fever, no weakness, no diaphoresis, no malaise. HEAD/FACE: No signs of trauma. EENT: No eye pain, no blurred vision, no tearing, no double vision, ear pain, no ear discharge, no nose pain, nasal congestion, throat pain, no throat swelling, no mouth pain. RESPIRATORY: No cough, no orthopnea, no SOB, no stridor, no wheezing. CARDIOVASCULAR: No chest pain, no edema, no palpitations, no syncope. GASTROINTESTINAL/ABDOMINAL: No abdominal pain, no constipation, no diarrhea, no nausea, no vomiting. GENITOURINARY: No abnormal discharge, no dysuria, no frequent urination, no hematuria. No complaints of pain in the genitals. MUSCULOSKELETAL: No back pain, no gout, no joint pain, no joint swelling, no muscle pain, no muscle stiffness, no neck pain. INTEGUMENTARY: No change in color, no change in hair/nails, no dryness, no lesion, no lumps, no rash. NEUROLOGICAL/PSYCH: No anxiety, not depressed, no emotional problem, no headache, no numbness, no pre-existing deficit, no history of seizures, no tremors, no weakness. HEMATOLOGIC/LYMPHATIC: Not anemic, no history of blood clots, no apparent bleeding, no bruising, glands not swollen. All Systems Negative, Except as Noted. Physical Exam Physical Exam Dictation VITAL SIGNS: Reviewed. GENERAL APPEARANCE: Alert, oriented x3, no acute distress, obese. HEAD AND FACE: Non-traumatic. EYES: PERRL, pink conjunctivas, eyelid no trauma, anterior chamber clear. EARS: Pinnas intact and no signs of trauma or erythema. Ear canals clear and no discharge. TMs erythema. NOSE: No discharge, no bleeding. OROPHARYNX: Mouth normal, teeth no caries, tongue pink. Pharynx erythema. Tonsils no exudates, no abscesses noted. Mucous membrane moist. NECK: Supple, non-tender, no thyromegaly, no masses, no JVD, no bruits. BREAST: Deferred. CHEST: No tenderness, no crepitus, no paradoxical movement, no retractions. LUNGS: Clear, well-ventilated, symmetric, no rales, no wheezing, no rhonchi, no stridor, good breath sounds bilaterally. HEART: Regular rate, regular rhythm, no murmur, no gallops. VASCULAR: No peripheral edema. ABDOMEN: Soft, positive bowel sounds, nondistended, no guarding, nontender, no rebound, no masses no hepatomegaly, no splenomegaly, no Smith's sign, no hernias. RECTAL: Deferred. GENITAL: Deferred. NEUROLOGICAL: Normal speech, gross motor function intact, gross sensory function intact. MUSCULOSKELETAL: Neck nontender, full range of motion, back nontender, full range of motion. EXTREMITIES: Nontender, full range of motion. SKIN: Color pink, dry, no turgor, no rash, no lacerations, no abrasions, no contusions. LYMPHATICS: Deferred. Results Laboratory and Microbiology Lab and Micro Result Laboratory Tests Test 04/11/25 11:22 SARS-CoV-2, RNA, NAAT NEGATIVE SARS CoV-2 Group A Streptococcus Rapid negative (NEGATIVE) Labs Reviewed?: Yes MDM MDM: Differential diagnosis: URI, COVID, strep, sinusitis, otitis media, Rationale: Tests considered and ordered secondary to shared decision making include: Previous outside records reviewed: Old ER visits. Risk of complication and/or morbidity or mortality of patient management: None Medications-Per medication reconciliation Need for hospitalization: Patient does not meet criteria for hospitalization. Need for emergency major/minor surgery: No There are no social concerns with this patient. Patient is a 49-year-old female coming in complaining of URI symptoms. On physical exam right tympanic membrane erythema oropharyngeal erythema nasal turbinate swelling. Laboratory workup negative for any acute findings. But due to the physical presentation patient's diagnosis will be sinusitis antibiotics will be provided as well as antihistamines. Patient will be discharged in stable condition. I did advised her appropriate follow up with PCP in 1-2 days for ongoing evaluation. ED Course Orders Procedure Category Date Status Time Rapid (Group A Strep) LAB 04/11/25 Complete 11:22 Covid Rna Naat LAB 04/11/25 Complete 11:22 Acetaminophen 500mg PHA 04/11/25 Complete Tab (Tylenol 500mg T 11:30 Current Medications Medications (Trade) Dose Ordered Sig/[place] Route PRN Reason Start Time Stop Time Status Last Admin Dose Admin Acetaminophen (TYLenol 500MG TAB) 1,000 mg ONCE ONCE PO 04/11/25 11:30 04/11/25 11:31 DC Vital Signs Date Time Temp Pulse Resp B/P (MAP) Pulse Ox O2 Delivery O2 Flow Rate FiO2 04/11/25 11:16 98.1 59 18 158/69 98 Room Air DX & DISP Disposition: Discharge Departure Impression: Primary Impression: Acute sinusitis Condition: Stable Scripts Fluticasone Propionate (Flonase Nasal [place]) 50 Mcg/Actuation [place] 2 SPRAY NS DAILY, #16 GM 0 Refills Prov: RENO WILLIS MD 04/11/25 Loratadine (Loratadine) 10 Mg Tablet 1 TAB PO DAILY for allergy symptoms for 30 Days, #30 TAB 0 Refills Prov: RENO WILLIS MD 04/11/25 Amoxicillin/Potassium Clav (Amox Tr-K Clv 875-125 mg Tab) 875 Mg-125 Mg Tablet 1 TAB PO BID for 10 Days, #20 TAB 0 Refills Prov: RENO WILLIS MD 04/11/25 Additional Instructions: FOLLOW-UP WITH PRIMARY CARE PROVIDER IN 1 TO 2 DAYS. TAKE MEDICATIONS DIRECTED HERE IN THE EMERGENCY ROOM. OKAY TO CONTINUE HOME MEDICATIONS UNLESS OTHERWISE DISCUSSED DURING YOUR VISIT IN THE EMERGENCY ROOM TODAY. RETURN TO YOUR NEAREST EMERGENCY ROOM IF SYMPTOMS WORSEN OR IF THERE IS NO IMPROVEMENT. CALL 911 IF YOU NEED IMMEDIATE ASSISTANCE. TAKE TYLENOL [id number] NEEDED AND IF NO CONTRAINDICATIONS ARE PRESENT. INCREASE ORAL HYDRATION. A WOUND CULTURE OR URINE CULTURE WAS ORDERED HERE IN THE EMERGENCY ROOM DEPARTMENT PLEASE FOLLOW-UP WITH PRIMARY CARE PROVIDER AND ADVISE THEM TO GET REPORTS FROM OUR FACILITY. IF YOU HAD ANY DAVID WRAP/SPLINTS THAT WERE APPLIED HERE, PLEASE DO NOT REMOVE THEM UNTIL YOU SEE YOUR PRIMARY CARE OR SPECIALTY. Referrals: Referrals: SELF,REFERRAL (PCP) CHELSEA VACA MD, JAMES T MD Time of Disposition: 12:58 RENO WILLIS MD Apr 11, 2025 12:59
[2025-04-11 13:47] VITALS: BP 145/65; PULSE 62; RESP 18; TEMP 98.1; O2SAT 99
== END 2025-04-11 13:51 | disposition admitted as inpatient to this hospital (09) ==
LOC: EDH 11:16
DX: F31.9 Bipolar disorder, unspecified (principal); J01.90 Acute sinusitis, unspecified; Z79.899 Other long term (current) drug therapy; Z90.49 Acquired absence of other specified parts of digestive tract; Z90.710 Acquired absence of both cervix and uterus; Z90.721 Acquired absence of ovaries, unilateral; Z20.822 Contact with and (suspected) exposure to COVID-19
CPT/HCPCS: 87635; 87880; 99283

== ENCOUNTER 2025-05-20 10:35 | Emergency (ER) | payer SELFPAY ==
[~2025-05-20] VITALS: Ht 162.6 cm; Wt 82.1 kg
[~2025-05-20 10:35] MED LIST changes: +DOXY100C5 PO; +FLUT16H NS; +PRED20TA3 PO
[2025-05-20 11:47] LABS: RAPID GROUP A STREP negative (NEGATIVE)
[2025-05-20 11:50] LABS: SARS-CoV-2, RNA, NAAT NEGATIVE SARS CoV-2 (NEGATIVE)
[2025-05-20 11:57] LABS: INFLUENZA TYPE A Negative For Type A (NEGATIVE); INFLUENZA TYPE B Negative For Type B (NEGATIVE)
--- NOTE | 2025-05-20 12:02 | ERN ---
ED Note History of Present Illness Stated Complaint: EAR PAIN, MURRY, BODYACHES Chief Complaint: Generalized Body Aches Time Seen by MD: 10:38 Time Seen by Midlevel: 10:40 Dictation: 49-year-old female with no past medical history coming in with complaints of feeling her throat swollen, ear pain, and just fatigued. He lives denies having any nausea, vomiting, diarrhea, chest pain or chest discomfort. Stated that they always gave her medications for URIs, states the last time they gave her doxycycline but that went did not work in his requesting when the starts with a amoxicillin " Allergies: Coded Allergies: No Known Allergies (Unverified Allergy, Unknown, 11/15/18) Home Meds Active Scripts Prednisone (Prednisone) 20 Mg Tablet, 20 MG PO DAILY for 5 Days, #5 TAB Prov:RAFFAELE ZAMBRANO MD 05/09/25 Doxycycline Hyclate (Doxycycline Hyclate) 100 Mg Capsule, 1 CAP PO BID for 10 Days, #20 CAP 0 Refills Prov:RAFFAELE ZAMBRANO MD 05/09/25 Fluticasone Propionate (Flonase Nasal [place]) 50 Mcg/Actuation [place], 2 SPRAY NS DAILY, #16 GM 0 Refills Prov:RENO WILLIS MD 04/11/25 Loratadine (Loratadine) 10 Mg Tablet, 1 TAB PO DAILY for allergy symptoms for 30 Days, #30 TAB 0 Refills Prov:RENO WILLIS MD 04/11/25 Amoxicillin/Potassium Clav (Amox Tr-K Clv 875-125 mg Tab) 875 Mg-125 Mg Tablet, 1 TAB PO BID for 10 Days, #20 TAB 0 Refills Prov:RENO WILLIS MD 04/11/25 Dicyclomine HCl (Bentyl) 20 Mg Tab, 1 TAB PO BID for irritable bowel symptoms for 10 Days, #20 TAB 0 Refills Prov:RAFFAELE ZAMBRANO MD 03/20/25 Ondansetron (Ondansetron Odt) 4 Mg Tab.rapdis, 4 MG PO BID for vomiting for 5 Days, #10 TAB Prov:RAFFAELE ZAMBRANO MD 03/20/25 Guaifenesin (Robitussin Syrp) 100 Mg/5 Ml Syrp, 5-10 ML PO QID for cough for 6 Days, #240 ML 0 Refills Prov:DERRELL ALEXANDER [employer] 03/12/25 Benzonatate (Benzonatate) 200 Mg Capsule, 1 CAP PO TIDP PRN for cough for 7 Days, #21 CAP 0 Refills Prov:EPI DIAZ MD 02/19/25 Benzonatate (Benzonatate) 200 Mg Capsule, 1 CAP PO TID for cough for 10 Days, #30 CAP 0 Refills Prov:EPI DIAZ MD 02/19/25 Benzonatate (Tessalon Perles) 100 Mg Cap, 200 MG PO TID for cough, #60 CAP 0 Refills Prov:YANDEL CASTILLO [employer] 01/03/25 Ibuprofen (Ibuprofen 800 mg Tab) 800 Mg Tab, 800 MG PO Q8H PRN for fever or pain, #30 TAB 0 Refills Prov:YANDEL CASTILLO [facility] 01/03/25 Methylprednisolone (Medrol) 4 Mg Tab.ds.pk, 1 TAB PO AD for 6 Days, #21 TAB 0 Refills 6 on day 1 then reduce by one tablet daily until gone Prov:YANDEL CASTILLO [facility] 01/03/25 Amoxicillin/Potassium Clav (Amox Tr-K Clv 875-125 mg Tab) 875 Mg-125 Mg Tablet, 1 EACH PO BID for 10 Days, #20 TAB 0 Refills Prov:YANDEL CASTILLO [facility] 01/03/25 Pantoprazole Sodium (Protonix) 40 Mg Ectab, 1 TAB PO DAILY for 30 Days, #30 TAB 0 Refills Prov:RENO WILLIS MD 10/02/24 Butalb/Acetaminophen/Caffeine (Fioricet) 50 Mg-325 Mg-40 Mg Tab, 1 TAB PO QID PRN for headache for 10 Days, #30 TAB Prov:RUDDY CORREA DO 07/19/24 Fluticasone Propionate (Flonase Nasal [place]) 50 Mcg/Actuation [place], 50 MCG NASAL QID, #1 SPRAY Prov:KINGA NORRIS MD 05/08/24 Amoxicillin (Amoxicillin) 500 Mg Tablet, 500 MG PO TID for 7 Days, #21 TAB Prov:KINGA NORRIS MD 05/08/24 Ibuprofen (Ibuprofen 800 mg Tab) 800 Mg Tab, 800 MG PO Q8H PRN for fever or pain, #30 TAB 0 Refills Prov:YANDEL CASTILLO [facility] 04/05/24 Amoxicillin/Potassium Clav (Amox Tr-K Clv 875-125 mg Tab) 875 Mg-125 Mg Tablet, 1 EACH PO BID for 10 Days, #20 TAB 0 Refills Prov:ROMISUPRIYAYANDEL Cm [facility] 04/05/24 Fexofenadine/Pseudoephedrine (Erma-D 12 Hour Tablet) 60 Mg-120 Mg Tab.er.12h, 1 EACH PO DAILY for 10 Days, #10 TAB Prov:RENO WILLIS MD 02/23/24 Fluticasone Propionate (Flonase Allergy Relief) 50 Mcg/Actuation [place].susp, 9.9 ML NS TID for 14 Days, #1 BOTTLE Prov:RENO WILLIS MD 02/23/24 Amoxicillin/Potassium Clav (Amox Tr-K Clv 875-125 mg Tab) 875 Mg-125 Mg Tablet, 1 EACH PO BID for 7 Days, #14 TAB Prov:ASYA SMITH [facility] 02/09/24 Loratadine (Loratadine) 10 Mg Tablet, 10 MG PO DAILY for 30 Days, #30 TAB Prov:ASYA SMITH 02/09/24 Methylprednisolone (Medrol) 4 Mg Tab.ds.pk, 4 MG PO AD, #1 PACK Prov:CHELSEA ENGLAND [facility] 01/28/24 Azithromycin (Azithromycin) 250 Mg Tablet, 250 MG PO DAILY for 5 Days, #5 TAB Prov:CHELSEA ENGLAND [facility] 01/28/24 Cephalexin (Cephalexin) 500 Mg Tablet, 500 MG PO TID for 10 Days, #30 TAB Prov:RIGO MIKE MD 03/30/23 Reported Medications [Turmeric] No Conflict Check, 1 TAB PO AM 09/17/22 [Mvi] No Conflict Check, 1 TAB PO AM 09/17/22 [Vitamin D] No Conflict Check, 1 TAB PO AM 09/17/22 [Fish Oil] No Conflict Check, 1 TAB PO AM 09/17/22 Acetaminophen with Codeine (Acetaminophen-Cod #3 Tablet) 1 Each Tablet, 1 EACH PO Q4H PRN for PAIN, TAB 09/17/22 Buspirone HCl (Buspar) 15 Mg Tab, 15 MG PO TID, TAB 04/28/22 Bupropion HCl (Wellbutrin Sr) 150 Mg Srtab, 150 MG PO DAILY for BIPOLAR, TAB.SR 04/28/22 Carbamazepine (Tegretol) 200 Mg Tablet, 200 MG PO AM for BIPOLAR, TAB 04/28/22 Past Medical History Past Medical History: Other Additional Past Medical Hx: RAYNOUDS, BIPOLAR ОЛЬГА, RHEUMATOID ARTHIRITIS Surgical History: Hysterectomy, Cholecystectomy, Other, Surgical History Other: LIPOMA REMOVAL FROM BACK, LEFFT OVARY REMOVAL Family History: Negative Social History: Negative, Lives with family, Other History: Not Applicable : 4 Para: 4 Aborts: 0 Review of System Dictation Constitutional: Denies fever and fatigue Eyes: Negative for injury, pain,redness, and discharge ENT: Complaining of throat pain Cardiovascular: Negative for chest pain, palpitations, and edema Respiratory: Negative for shortness of breath, cough, and wheezing, Abdomen/GI: Negative for abdominal pain, nausea, vomiting, diarrhea, and constipation Back: Negative for injury and pain : Negative for injury, bleeding and discharge MS/Extremity: Negative for injury and deformity Skin: Negative for rash, and discoloration Neuro: Negative for headache, weakness, numbness, tingling, and seizure Psych: Negative for suicide ideation, homicidal ideation, and hallucinations Review of Systems: was completed Initial Vital Sign VS Vital Signs Date Time Temp Pulse Resp B/P (MAP) Pulse Ox O2 Delivery O2 Flow Rate FiO2 05/20/25 10:36 97.9 62 16 160/90 99 Room Air 0 05/20/25 11:34 21 Physical Exam Dictation General: awake, alert, NAD Head/Face: Normocephalic, atraumatic Eyes: PERRL, EOMI, vision at baseline ENT: oral cavity clear, TMs clear, a lateral erythema noted in the ear canal Neck: Trachea midline, supple, no nuchal rigidity Cardiovascular: RRR, normal S1/S2, No MRGs, no JVD Respiratory: CTAB, no respiratory distress, No rales or wheezes Abdomen: Soft, non-tender, non-distended, normal bowel sounds, no guarding or rebound. Skin: Warm, dry, normal turgor, no rash MS/Extremity: Pulses equal, no cyanosis, neurovascular intact, FROM Neuro: COAx4, GCS 15, strength 5/5, CN 2-12 intact, normal cerebellar exam, normal gait, Psych: Normal behavior, mood, and affect normal Results (Laboratory/Radiology) Laboratory/Radiology Laboratory Tests Test 05/20/25 11:24 Influenza Type A Antigen Negative For Type A Influenza Type B Antigen Negative For Type B SARS-CoV-2, RNA, NAAT NEGATIVE SARS CoV-2 Group A Streptococcus Rapid negative (NEGATIVE) Labs Reviewed?: Yes ED Course ED Course Orders Procedure Category Date Status Time Influenza Type A & B, LAB 05/20/25 Complete Rapid 11:05 Covid Rna Naat LAB 05/20/25 Complete 11:05 Rapid (Group A Strep) LAB 05/20/25 Complete 11:05 0.9%Nacl 1000ml (Ns PHA 05/20/25 Complete 1000ml) 11:40 Ketorolac PHA 05/20/25 Complete Tromethamine 15mg/Ml 12:00 12 Lead Ekg Tracing- EKG 05/20/25 Logged Technical 11:40 Current Medications Medications (Trade) Dose Ordered Sig/[place] Route PRN Reason Start Time Stop Time Status Last Admin Dose Admin Ketorolac Tromethamine (toRADol) 15 mg ONCE ONCE IV 05/20/25 12:00 05/20/25 12:01 DC Sodium Chloride 1,000 ml @ 1,000 mls/hr Q1H STAT IV 05/20/25 11:40 05/20/25 12:39 DC 05/20/25 12:34 Vital Signs Date Time Temp Pulse Resp B/P (MAP) Pulse Ox O2 Delivery O2 Flow Rate FiO2 05/20/25 11:34 98.8 124 18 164/90 98 Room Air* 0 21 05/20/25 10:36 97.9 62 16 160/90 99 Room Air 0 Medical Decision Making MDM MDM: 49-year-old female with no past medical history coming in with complaints of feeling her throat swollen, ear pain, and just fatigued. He lives denies having any nausea, vomiting, diarrhea, chest pain or chest discomfort. Stated that they always gave her medications for URIs, states the last time they gave her doxycycline but that went did not work in his requesting when the starts with a amoxicillin ". Offered patient blood work, chest x-ray and CT scan for the neck, patient is refusing blood work and imaging, states she just wants the antibiotic. 1130 The primary nurse in charge came to tell me that patient's BP was in the one states he has a heart rate in 120s, which I then ordered fluids, and EKGs. 1159 I was advised by here take patient was seen leaving the ER. 1215 patient return to the emergency room, we will continue workup 1257 BP vital signs show a blood pressure in the 120s and heart rate of 109. Okay for patient to be disposition home. Differential diagnosis: Strep throat, URI, otitis media Rationale: Tests considered and ordered secondary to shared decision making include: Previous outside records reviewed: Old ER visits. Risk of complication and/or morbidity or mortality of patient management: None Medications-Per medication reconciliation Need for hospitalization: Patient does not meet criteria for hospitalization. Need for emergency major/minor surgery: No There are no social concerns with this patient. Prescription drug management Prescriptions will include symptomatic care Patient's prior external medical records from other ER visits were reviewed by me as indicated. Prior testing and results from previous visits were reviewed. Prior tests were taken into account with medical decision making and resource utilization, independent historian/historians were used to obtain complete medical history. I independently interpreted the test that were performed, results were reviewed by me and considered findings on radiology if ordered. Medical management and examination interpretation discussions were had by me with other qualified healthcare professionals as indicated for the patient's care. DX & DISP Disposition: Discharge Departure Impression: Primary Impression: Upper respiratory infection Additional Impression: Otitis media Condition: Stable Scripts Amoxicillin/Potassium Clav (Amox Tr-K Clv 875-125 mg Tab) 875 Mg-125 Mg Tablet 1 EACH PO BID for 5 Days, #10 TAB 0 Refills Prov: JANNY WATSON CNP 05/20/25 Additional Instructions: Please follow up with your primary doctor in 1-2 days. Return to the hospital as needed. Referrals: SELF,REFERRAL (PCP) I have reviewed the case, and I agree with, Diagnosis and Plan JANNY WATSON CNP May 20, 2025 12:02
--- NOTE | 2025-05-20 12:16 | NUR ---
At approximatly 11:40am I informed patient SWATCH CUTTER had ordered IV fluid, pain medication and EKG due to her vital signs. She asked if she would be here for a while to which I replayed yes. Shn then ststed she was going to go to the front to let her family know it would be a while. At approximaty 11:50am Mansi GOYAL informed me she was unable to find patient. I spoke with Alan from Security department and he stated he saw her walk out of the ED lobby. AT approximatly 12:20pm She reported back to the triage area.
[2025-05-20] MEDS: 0.9%NACL 1000ML 1,000 ML IV STA (12:34)
[2025-05-20] MEDS ORDERED: AMOX1TAB16 PO (12:56)
--- NOTE | 2025-05-20 13:00 | EKG ---
[facility] Test Date: 2025-05-20 Test Time: 12:55:10 Pat Name: LARY NGUYEN Department: [facility] Room: Gender: F Engineer Station Mainline: [id number] : 1975 Requested By: JANNY WATSON Order Number: [id number] Reading MD: Marcelino Juarez Measurements Intervals [place] Rate: 63 P: 40 [place]: 187 QRS: -83 QRSD: 119 T: -39 QT: 449 QTc: 459 Interpretive Statements Sinus rhythm Left anterior fascicular block Probable left ventricular hypertrophy Compared to ECG 03/20/2025 08:02:33 First degree AV block no longer present Right bundle-branch block no longer present Q waves no longer present Electronically Signed On 05-21-2025 09:19:09 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
--- NOTE | 2025-05-20 13:27 | NUR ---
Refused IV fluids, not administered.
[2025-05-20 13:29] VITALS: BP 132/88; PULSE 109; RESP 18; TEMP 98.8; O2SAT 99
== END 2025-05-20 13:46 | disposition home or self-care (01) ==
LOC: EDH 10:35
DX: J06.9 Acute upper respiratory infection, unspecified (principal); H66.93 Otitis media, unspecified, bilateral; F31.9 Bipolar disorder, unspecified; Z20.822 Contact with and (suspected) exposure to COVID-19; Z79.52 Long term (current) use of systemic steroids; Z79.899 Other long term (current) drug therapy; Z90.49 Acquired absence of other specified parts of digestive tract; Z90.710 Acquired absence of both cervix and uterus; Z90.721 Acquired absence of ovaries, unilateral
CPT/HCPCS: 99284; 96374; 87635; 87880; 87804 ×2; 96372; 93005; J1100; J1885

== ENCOUNTER 2025-05-24 13:07 | Emergency (ER) | payer SELFPAY ==
[~2025-05-24] VITALS: Ht 162.6 cm; Wt 81.6 kg
--- NOTE | 2025-05-24 13:20 | ERN ---
ED Note History of Present Illness Stated Complaint: HIGH BP Chief Complaint: Hypertension Time Seen by MD: 13:14 Dictation: PATIENT IS A 49-YEAR-OLD FEMALE COMING IN TODAY WITH COMPLAINTS OF CONCERNS OVER HER BLOOD PRESSURE. SHE STATES OVER THE LAST SEVERAL DAYS HER BLOOD PRESSURE HAS BEEN RUNNING 150S TO 170S. SHE HAS NO CHEST PAIN NO BACK PAIN NO SOB. SHE WAS JUST SEEN AT [facility] SEVERAL DAYS AGO AND TREATED FOR AN UPPER RESPIRATORY INFECTION. SHE STATES WHEN THEY TAKE HER BLOOD PRESSURE AT THERAPY THAT IS HIGH. SHE STATES SHE HAS A AN APPOINTMENT WITH HER PHYSICIAN ON TUESDAY CURRENT BLOOD PRESSURE 175. Allergies: Coded Allergies: No Known Allergies (Unverified Allergy, Unknown, 11/15/18) Home Meds Active Scripts Amoxicillin/Potassium Clav (Amox Tr-K Clv 875-125 mg Tab) 875 Mg-125 Mg Tablet, 1 EACH PO BID for 5 Days, #10 TAB 0 Refills Prov:JANNY WATSON CNP 05/20/25 Prednisone (Prednisone) 20 Mg Tablet, 20 MG PO DAILY for 5 Days, #5 TAB Prov:RAFFAELE ZAMBRANO MD 05/09/25 Doxycycline Hyclate (Doxycycline Hyclate) 100 Mg Capsule, 1 CAP PO BID for 10 Days, #20 CAP 0 Refills Prov:RAFFAELE ZAMBRANO MD 05/09/25 Fluticasone Propionate (Flonase Nasal [place]) 50 Mcg/Actuation [place], 2 SPRAY NS DAILY, #16 GM 0 Refills Prov:RENO WILLIS MD 04/11/25 Loratadine (Loratadine) 10 Mg Tablet, 1 TAB PO DAILY for allergy symptoms for 30 Days, #30 TAB 0 Refills Prov:RENO WILLIS MD 04/11/25 Amoxicillin/Potassium Clav (Amox Tr-K Clv 875-125 mg Tab) 875 Mg-125 Mg Tablet, 1 TAB PO BID for 10 Days, #20 TAB 0 Refills Prov:RENO WILLIS MD 04/11/25 Dicyclomine HCl (Bentyl) 20 Mg Tab, 1 TAB PO BID for irritable bowel symptoms for 10 Days, #20 TAB 0 Refills Prov:RAFFAELE ZAMBRANO MD 03/20/25 Ondansetron (Ondansetron Odt) 4 Mg Tab.rapdis, 4 MG PO BID for vomiting for 5 Days, #10 TAB Prov:RAFFAELE ZAMBRANO MD 03/20/25 Guaifenesin (Robitussin Syrp) 100 Mg/5 Ml Syrp, 5-10 ML PO QID for cough for 6 Days, #240 ML 0 Refills Prov:DERRELL ALEXANDER 03/12/25 Benzonatate (Benzonatate) 200 Mg Capsule, 1 CAP PO TIDP PRN for cough for 7 Days, #21 CAP 0 Refills Prov:EPI DIAZ MD 02/19/25 Benzonatate (Benzonatate) 200 Mg Capsule, 1 CAP PO TID for cough for 10 Days, #30 CAP 0 Refills Prov:EPI DIAZ MD 02/19/25 Benzonatate (Tessalon Perles) 100 Mg Cap, 200 MG PO TID for cough, #60 CAP 0 Refills Prov:YANDEL CASTILLOP 01/03/25 Ibuprofen (Ibuprofen 800 mg Tab) 800 Mg Tab, 800 MG PO Q8H PRN for fever or pain, #30 TAB 0 Refills Prov:YANDEL CASTILLO [facility] 01/03/25 Methylprednisolone (Medrol) 4 Mg Tab.ds.pk, 1 TAB PO AD for 6 Days, #21 TAB 0 Refills 6 on day 1 then reduce by one tablet daily until gone Prov:YANDEL CASTILLOP 01/03/25 Amoxicillin/Potassium Clav (Amox Tr-K Clv 875-125 mg Tab) 875 Mg-125 Mg Tablet, 1 EACH PO BID for 10 Days, #20 TAB 0 Refills Prov:YANDEL CASTILLO [facility] 01/03/25 Pantoprazole Sodium (Protonix) 40 Mg Ectab, 1 TAB PO DAILY for 30 Days, #30 TAB 0 Refills Prov:RENO WILLIS MD 10/02/24 Butalb/Acetaminophen/Caffeine (Fioricet) 50 Mg-325 Mg-40 Mg Tab, 1 TAB PO QID PRN for headache for 10 Days, #30 TAB Prov:RUDDY CORREA DO 07/19/24 Fluticasone Propionate (Flonase Nasal [place]) 50 Mcg/Actuation [place], 50 MCG NASAL QID, #1 SPRAY Prov:KINGA NORRIS MD 05/08/24 Amoxicillin (Amoxicillin) 500 Mg Tablet, 500 MG PO TID for 7 Days, #21 TAB Prov:KINGA NORRIS MD 05/08/24 Ibuprofen (Ibuprofen 800 mg Tab) 800 Mg Tab, 800 MG PO Q8H PRN for fever or pain, #30 TAB 0 Refills Prov:YANDEL CASTILLOP 04/05/24 Amoxicillin/Potassium Clav (Amox Tr-K Clv 875-125 mg Tab) 875 Mg-125 Mg Tablet, 1 EACH PO BID for 10 Days, #20 TAB 0 Refills Prov:YANDEL CASTILLOP 04/05/24 Fexofenadine/Pseudoephedrine (Erma-D 12 Hour Tablet) 60 Mg-120 Mg Tab.er.12h, 1 EACH PO DAILY for 10 Days, #10 TAB Prov:RENO WILLIS MD 02/23/24 Fluticasone Propionate (Flonase Allergy Relief) 50 Mcg/Actuation [place].susp, 9.9 ML NS TID for 14 Days, #1 BOTTLE Prov:RENO WILLIS MD 02/23/24 Amoxicillin/Potassium Clav (Amox Tr-K Clv 875-125 mg Tab) 875 Mg-125 Mg Tablet, 1 EACH PO BID for 7 Days, #14 TAB Prov:ASYA SMITH 02/09/24 Loratadine (Loratadine) 10 Mg Tablet, 10 MG PO DAILY for 30 Days, #30 TAB Prov:ASYA SMITH 02/09/24 Methylprednisolone (Medrol) 4 Mg Tab.ds.pk, 4 MG PO AD, #1 PACK Prov:CHELSEA ENGLAND 01/28/24 Azithromycin (Azithromycin) 250 Mg Tablet, 250 MG PO DAILY for 5 Days, #5 TAB Prov:CHELSEA ENGLAND 01/28/24 Cephalexin (Cephalexin) 500 Mg Tablet, 500 MG PO TID for 10 Days, #30 TAB Prov:RIGO MIKE MD 03/30/23 Reported Medications [Turmeric] No Conflict Check, 1 TAB PO AM 09/17/22 [Mvi] No Conflict Check, 1 TAB PO AM 09/17/22 [Vitamin D] No Conflict Check, 1 TAB PO AM 09/17/22 [Fish Oil] No Conflict Check, 1 TAB PO AM 3/31/23 Acetaminophen with Codeine (Acetaminophen-Cod #3 Tablet) 1 Each Tablet, 1 EACH PO Q4H PRN for PAIN, TAB 09/17/22 Buspirone HCl (Buspar) 15 Mg Tab, 15 MG PO TID, TAB 04/28/22 Bupropion HCl (Wellbutrin Sr) 150 Mg Srtab, 150 MG PO DAILY for BIPOLAR, TAB.SR 04/28/22 Carbamazepine (Tegretol) 200 Mg Tablet, 200 MG PO AM for BIPOLAR, TAB 04/28/22 Past Medical History Past Medical History: Anxiety, Arthritis, Bipolar, Other Additional Past Medical Hx: RAYNOUDS, BIPOLAR ОЛЬГА, RHEUMATOID ARTHIRITIS Surgical History: Hysterectomy, Cholecystectomy, Other, Surgical History Other: LIPOMA REMOVAL FROM BACK, LEFFT OVARY REMOVAL Family History: Negative Social History: Negative, Lives with family, Other History: Not Applicable : 4 Para: 4 Aborts: 0 RN Note Reviewed/Agreed w/PFSH: Yes Review of System Dictation CONSTITUTIONAL: NEGATIVE EXCEPT FOR HPI HEAD/FACE: NEGATIVE EXCEPT FOR HPI EENT: NEGATIVE EXCEPT FOR HPI RESPIRATORY: NEGATIVE EXCEPT FOR HPI GASTROINTESTINAL/ABDOMINAL: NEGATIVE EXCEPT FOR HPI GENITOURINARY: NEGATIVE EXCEPT FOR HPI MUSCULOSKELETAL: NEGATIVE EXCEPT FOR HPI INTEGUMENTARY: NEGATIVE EXCEPT FOR HPI NEUROLOGICAL/PSYCH: NEGATIVE EXCEPT FOR HPI HEMATOLOGIC/LYMPHATIC: NEGATIVE EXCEPT FOR HPI ALL SYSTEMS NEGATIVE, EXCEPT NOTED ABOVE. 13 POINT REVIEW OF SYSTEMS ASSESSED AND ALL NEGATIVE EXCEPT FOR ABOVE. Initial Vital Sign VS Vital Signs Date Time Temp Pulse Resp B/P (MAP) Pulse Ox O2 Delivery O2 Flow Rate FiO2 05/24/25 13:08 98.8 69 20 175/96 99 Room Air 0 05/24/25 13:54 21 Physical Exam Dictation VITAL SIGNS REVIEWED GENERAL APPEARANCE: ALERT, ORIENTED X 3, NO ACUTE DISTRESS, WELL DEVELOPED, NOURISHED. NO COMPLAINTS OF PAIN HEAD AND FACE: NON-TRAUMATIC. EYES: PERRL, PINK CONJUNCTIVAS, EYELID NO TRAUMA, ANTERIOR CHAMBER WITH ARCUS SENILIS. EARS: PINNAS INTACT AND NO SIGNS OF TRAUMA OR ERYTHEMA EAR CANALS CLEAR AND NO DISCHARGE TM NO ERYTHEMA NOSE: NO DISCHARGE, NO BLEEDING. OROPHARYNX: MOUTH NORMAL, TONGUE PINK, PHARYNX CLEAR,NO ERYTHEMA, TONSILS NO EXUDATES, NO ABSCESSES NOTED, MUCOUS MEMBRANE MOIST NECK: SUPPLE, NON-TENDER, NO THYROMEGALY, NO MASSES, NO JVD, NO BRUITS BREAST:DEFERRED CHEST:NO TENDERNESS, NO CREPITUS, NO PARADOXICAL MOVEMENT, NO RETRACTIONS LUNGS:CLEAR, WELL-VENTILATED, SYMMETRIC, NO RALES, NO WHEEZING, NO RHONCHI, NO STRIDOR, GOOD BREATH SOUNDS BILATERALLY HEART: REGULAR RATE, REGULAR RHYTHM, NO MURMUR, NO GALLOPS VASCULAR: NO PERIPHERAL EDEMA, ABDOMEN: SOFT, POSITIVE BOWEL SOUNDS, NONDISTENDED, NO GUARDING, NONTENDER, NO REBOUND, NO MASSES NO HEPATOMEGALY, NO SPLENOMEGALY, NO ROMANO'S SIGN, NO HERNIAS. RECTAL: DEFERRED GENITAL: DEFERRED NEUROLOGICAL: NORMAL SPEECH, MOTOR FUNCTION INTACT, SENSORY FUNCTION INTACT MUSCULOSKELETAL: NECK NONTENDER, FULL RANGE OF MOTION, BACK NONTENDER, FULL RANGE OF MOTION, EXTREMITIES: NONTENDER, FULL RANGE OF MOTION SKIN: COLOR PINK, DRY, NO TURGOR, NO RASH, NO LACERATIONS, NO ABRASIONS, NO CONTUSIONS. LYMPHATIC: DEFERRED Results (Laboratory/Radiology) Labs Reviewed?: Yes ED Course ED Course Orders Procedure Category Date Status Time Clonidine Hcl 0.1 Mg PHA 05/24/25 Complete Tablet (Catapres 0. 13:30 Current Medications Medications (Trade) Dose Ordered Sig/[place] Route PRN Reason Start Time Stop Time Status Last Admin Dose Admin Clonidine HCl (CATApres 0.1 mg TAB) 0.1 mg ONCE ONCE PO 05/24/25 13:30 05/24/25 13:31 DC 05/24/25 13:29 Vital Signs Date Time Temp Pulse Resp B/P (MAP) Pulse Ox O2 Delivery O2 Flow Rate FiO2 05/24/25 13:54 98.1 62 18 158/92 99 Room Air* 0 21 05/24/25 13:08 98.8 69 20 175/96 99 Room Air 0 I INSTRUCTED PATIENT THAT HER BLOOD PRESSURE WAS 175/96 HERE IN THE EMERGENCY ROOM. I WOULD PROVIDE HER WITH FIVE DAYS WORTH OF CLONIDINE AND SHE COULD SEE HER PRIMARY CARE DOCTOR ON TUESDAY FOR FOLLOW UP AND MANAGEMENT OF HER HYPERTENSION.1415/ 1415/REPEAT BLOOD PRESSURE 158/92 AFTER CLONIDINE. HYPO PROVIDE PATIENT IS SEVEN DAYS OF CLONIDINE 0 ONE TO TAKE DAILY AND HAVE HER SEE YOUR PRIMARY CARE DOCTOR FOR HER DOCTOR TUESDAY Medical Decision Making MDM MEDICAL DISCHARGE MAKING BASED ON EMPIRIC TREATMENT FOR HYPERTENSION. PATIENT PROVIDED CLONIDINE 0.1 REPEAT BLOOD PRESSURE IS MARKEDLY IMPROVED PATIENT WILL BE SENT HOME WITH CLONIDINE 0.1 P.O. DAILY SHE STATES SHE HAS A AN APPOINTMENT WITH HER DOCTOR TUESDAY. DX & DISP Disposition: Discharge Departure Impression: Primary Impression: Hypertension Condition: Stable Scripts Clonidine HCl (Clonidine HCl) 0.1 Mg Tablet 1 TAB PO HS for 7 Days, #7 TAB 0 Refills Prov: YANDEL CASTILLO 05/24/25 Additional Instructions: FOLLOW-UP WITH PRIMARY CARE PROVIDER IN 1 TO 2 DAYS. TAKE MEDICATIONS DIRECTED HERE IN THE EMERGENCY ROOM. OKAY TO CONTINUE HOME MEDICATIONS UNLESS OTHERWISE DISCUSSED DURING YOUR VISIT IN THE EMERGENCY ROOM TODAY. RETURN TO YOUR NEAREST EMERGENCY ROOM IF SYMPTOMS WORSEN OR IF THERE IS NO IMPROVEMENT. CALL 911 IF YOU NEED IMMEDIATE ASSISTANCE. TAKE TYLENOL OR MOTRIN [id number] NEEDED AND IF NO CONTRAINDICATIONS ARE PRESENT. INCREASE ORAL HYDRATION. A WOUND CULTURE OR URINE CULTURE WAS ORDERED HERE IN THE EMERGENCY ROOM DEPARTMENT PLEASE FOLLOW-UP WITH PRIMARY CARE PROVIDER AND ADVISE THEM TO GET REPEAT PORTS FROM OUR FACILITY. IF YOU HAD ANY DAVID WRAP/SPLINTS THAT WERE APPLIED HERE, PLEASE DO NOT REMOVE THEM UNTIL YOU SEE YOUR PRIMARY CARE OR SPECIALTY. TAKE CLONIDINE DAILY DIRECTED STARTING TOMORROW. KEEP YOUR APPOINTMENT WITH THE YOUR PRIMARY CARE DOCTOR TUESDAY HE WILL BE THE ONE TO MANAGE YOUR BLOOD PRESSURE FOR THE LONG-TERM. Referrals: SELF,REFERRAL (PCP) Time of Disposition: 14:16 I have reviewed the case, and I agree with, Diagnosis and Plan YANDEL CASTILLO May 24, 2025 13:20
[2025-05-24 13:54] VITALS: BP 158/92; PULSE 62; RESP 18; TEMP 98.1; O2SAT 99
[2025-05-24] MEDS ORDERED: CLON0.1T PO (14:16)
== END 2025-05-24 14:20 | disposition home or self-care (01) ==
LOC: EDH 13:07
DX: I10 Essential (primary) hypertension (principal); F31.9 Bipolar disorder, unspecified; F41.9 Anxiety disorder, unspecified; M19.90 Unspecified osteoarthritis, unspecified site; Z79.52 Long term (current) use of systemic steroids; Z79.899 Other long term (current) drug therapy; Z90.49 Acquired absence of other specified parts of digestive tract; Z90.710 Acquired absence of both cervix and uterus; Z90.721 Acquired absence of ovaries, unilateral
CPT/HCPCS: 99283

== ENCOUNTER 2025-06-16 17:16 | Emergency (ER) | payer SELFPAY ==
[~2025-06-16] VITALS: Ht 162.6 cm; Wt 79.8 kg
[~2025-06-16 17:16] MED LIST changes: +CLON0.1T PO
--- NOTE | 2025-06-16 17:26 | ERN ---
ED Note History of Present Illness Stated Complaint: ANKLE PAIN Chief Complaint: Lower Extremity Pain/Injury Time Seen by MD: 17:19 Dictation: PATIENT IS A 49-YEAR-OLD FEMALE HERE WITH RIGHT ANKLE PAIN SWELLING ONSET THIS MORNING AFTER SHE HAD A TWISTED HER ANKLE AND THEN FELL. NO HIP PAIN NO PELVIC PAIN. SHE HAS NOT TAKEN TO ARRIVAL FOR PAIN AND STATES SHE HAS NOT BEEN ABLE TO WEIGHT BEAR SINCE THE ACCIDENT. Allergies: Coded Allergies: No Known Allergies (Unverified Allergy, Unknown, 11/15/18) Home Meds Active Scripts Clonidine HCl (Clonidine HCl) 0.1 Mg Tablet, 1 TAB PO HS for 7 Days, #7 TAB 0 Re fills Prov:ROMISUPRIYAYANDEL FURNACE ERECTOR 05/24/25 Amoxicillin/Potassium Clav (Amox Tr-K Clv 875-125 mg Tab) 875 Mg-125 Mg Tablet, 1 EACH PO BID for 5 Days, #10 TAB 0 Refills Prov:JANNY WATSON CNP 05/20/25 Prednisone (Prednisone) 20 Mg Tablet, 20 MG PO DAILY for 5 Days, #5 TAB Prov:RAFFAELE ZAMBRANO MD 05/09/25 Doxycycline Hyclate (Doxycycline Hyclate) 100 Mg Capsule, 1 CAP PO BID for 10 Days, #20 CAP 0 Refills Prov:RAFFAELE ZAMBRANO MD 05/09/25 Fluticasone Propionate (Flonase Nasal [place]) 50 Mcg/Actuation [place], 2 SPRAY NS DAILY, #16 GM 0 Refills Prov:RENO WILLIS MD 04/11/25 Loratadine (Loratadine) 10 Mg Tablet, 1 TAB PO DAILY for allergy symptoms for 30 Days, #30 TAB 0 Refills Prov:RENO WILLIS MD 04/11/25 Amoxicillin/Potassium Clav (Amox Tr-K Clv 875-125 mg Tab) 875 Mg-125 Mg Tablet, 1 TAB PO BID for 10 Days, #20 TAB 0 Refills Prov:RENO WILLIS MD 04/11/25 Dicyclomine HCl (Bentyl) 20 Mg Tab, 1 TAB PO BID for irritable bowel symptoms for 10 Days, #20 TAB 0 Refills Prov:RAFFAELE ZAMBRANO MD 03/20/25 Ondansetron (Ondansetron Odt) 4 Mg Tab.rapdis, 4 MG PO BID for vomiting for 5 Days, #10 TAB Prov:RAFFAELE ZAMBRANO MD 03/20/25 Guaifenesin (Robitussin Syrp) 100 Mg/5 Ml Syrp, 5-10 ML PO QID for cough for 6 Days, #240 ML 0 Refills Prov:DERRELL ALEXANDER 03/12/25 Benzonatate (Benzonatate) 200 Mg Capsule, 1 CAP PO TIDP PRN for cough for 7 Days, #21 CAP 0 Refills Prov:EPI DIAZ MD 02/19/25 Benzonatate (Benzonatate) 200 Mg Capsule, 1 CAP PO TID for cough for 10 Days, #30 CAP 0 Refills Prov:EPI DIAZ MD 02/19/25 Benzonatate (Tessalon Perles) 100 Mg Cap, 200 MG PO TID for cough, #60 CAP 0 Refills Prov:YANDEL CASTILLOP 01/03/25 Ibuprofen (Ibuprofen 800 mg Tab) 800 Mg Tab, 800 MG PO Q8H PRN for fever or pain, #30 TAB 0 Refills Prov:YANDEL CASTILLO [facility] 01/03/25 Methylprednisolone (Medrol) 4 Mg Tab.ds.pk, 1 TAB PO AD for 6 Days, #21 TAB 0 Refills 6 on day 1 then reduce by one tablet daily until gone Prov:YANDEL CASTILLOP 01/03/25 Amoxicillin/Potassium Clav (Amox Tr-K Clv 875-125 mg Tab) 875 Mg-125 Mg Tablet, 1 EACH PO BID for 10 Days, #20 TAB 0 Refills Prov:YANDEL CASTILLO [facility] 01/03/25 Pantoprazole Sodium (Protonix) 40 Mg Ectab, 1 TAB PO DAILY for 30 Days, #30 TAB 0 Refills Prov:RENO WILLIS MD 10/02/24 Butalb/Acetaminophen/Caffeine (Fioricet) 50 Mg-325 Mg-40 Mg Tab, 1 TAB PO QID PRN for headache for 10 Days, #30 TAB Prov:RUDDY CORREA DO 07/19/24 Fluticasone Propionate (Flonase Nasal [place]) 50 Mcg/Actuation [place], 50 MCG NASAL QID, #1 SPRAY Prov:KINGA NORRIS MD 05/08/24 Amoxicillin (Amoxicillin) 500 Mg Tablet, 500 MG PO TID for 7 Days, #21 TAB Prov:KINGA NORRIS MD 05/08/24 Ibuprofen (Ibuprofen 800 mg Tab) 800 Mg Tab, 800 MG PO Q8H PRN for fever or pain, #30 TAB 0 Refills Prov:YANDEL CASTILLOP 04/05/24 Amoxicillin/Potassium Clav (Amox Tr-K Clv 875-125 mg Tab) 875 Mg-125 Mg Tablet, 1 EACH PO BID for 10 Days, #20 TAB 0 Refills Prov:YANDEL CASTILLOP 04/05/24 Fexofenadine/Pseudoephedrine (Erma-D 12 Hour Tablet) 60 Mg-120 Mg Tab.er.12h, 1 EACH PO DAILY for 10 Days, #10 TAB Prov:RENO WILLIS MD 02/23/24 Fluticasone Propionate (Flonase Allergy Relief) 50 Mcg/Actuation [place].susp, 9.9 ML NS TID for 14 Days, #1 BOTTLE Prov:RENO WILLIS MD 02/23/24 Amoxicillin/Potassium Clav (Amox Tr-K Clv 875-125 mg Tab) 875 Mg-125 Mg Tablet, 1 EACH PO BID for 7 Days, #14 TAB Prov:ASYA SMITH 02/09/24 Loratadine (Loratadine) 10 Mg Tablet, 10 MG PO DAILY for 30 Days, #30 TAB Prov:ASYA SMITH 02/09/24 Methylprednisolone (Medrol) 4 Mg Tab.ds.pk, 4 MG PO AD, #1 PACK Prov:CHELSEA ENGLAND 01/28/24 Azithromycin (Azithromycin) 250 Mg Tablet, 250 MG PO DAILY for 5 Days, #5 TAB Prov:CHELSEA ENGLAND 01/28/24 Cephalexin (Cephalexin) 500 Mg Tablet, 500 MG PO TID for 10 Days, #30 TAB Prov:RIGO MIKE MD 03/30/23 Reported Medications [Turmeric] No Conflict Check, 1 TAB PO AM 09/17/22 [Mvi] No Conflict Check, 1 TAB PO AM 09/17/22 [Vitamin D] No Conflict Check, 1 TAB PO AM 09/17/22 [Fish Oil] No Conflict Check, 1 TAB PO AM 3/31/23 Acetaminophen with Codeine (Acetaminophen-Cod #3 Tablet) 1 Each Tablet, 1 EACH PO Q4H PRN for PAIN, TAB 09/17/22 Buspirone HCl (Buspar) 15 Mg Tab, 15 MG PO TID, TAB 04/28/22 Bupropion HCl (Wellbutrin Sr) 150 Mg Srtab, 150 MG PO DAILY for BIPOLAR, TAB.SR 04/28/22 Carbamazepine (Tegretol) 200 Mg Tablet, 200 MG PO AM for BIPOLAR, TAB 04/28/22 Past Medical History Past Medical History: Bipolar Additional Past Medical Hx: RA, REYNCANDACES Surgical History: Hysterectomy, Cholecystectomy, Surgical History Other: LEFT OVARY SX Family History: Negative Social History: Negative, Lives with family, Other History: Not Applicable : 4 Para: 4 Aborts: 0 RN Note Reviewed/Agreed w/PFSH: Yes Review of System Dictation CONSTITUTIONAL: NEGATIVE EXCEPT FOR HPI HEAD/FACE: NEGATIVE EXCEPT FOR HPI EENT: NEGATIVE EXCEPT FOR HPI RESPIRATORY: NEGATIVE EXCEPT FOR HPI GASTROINTESTINAL/ABDOMINAL: NEGATIVE EXCEPT FOR HPI GENITOURINARY: NEGATIVE EXCEPT FOR HPI MUSCULOSKELETAL: NEGATIVE EXCEPT FOR HPI RIGHT LATERAL ANKLE PAIN SWELLING INTEGUMENTARY: NEGATIVE EXCEPT FOR HPI NEUROLOGICAL/PSYCH: NEGATIVE EXCEPT FOR HPI HEMATOLOGIC/LYMPHATIC: NEGATIVE EXCEPT FOR HPI ALL SYSTEMS NEGATIVE, EXCEPT NOTED ABOVE. 13 POINT REVIEW OF SYSTEMS ASSESSED AND ALL NEGATIVE EXCEPT FOR ABOVE. Initial Vital Sign VS Vital Signs Date Time Temp Pulse Resp B/P (MAP) Pulse Ox O2 Delivery O2 Flow Rate FiO2 06/16/25 17:17 97.9 91 20 144/88 98 Room Air Physical Exam Dictation VITAL SIGNS REVIEWED GENERAL APPEARANCE: ALERT, ORIENTED X 3, MODERATE ACUTE DISTRESS, WELL DEV ELOPED, NOURISHED. HEAD AND FACE: NON-TRAUMATIC. EYES: PERRL, PINK CONJUNCTIVAS, EYELID NO TRAUMA, ANTERIOR CHAMBER WITH ARCUS SENILIS. EARS: PINNAS INTACT AND NO SIGNS OF TRAUMA OR ERYTHEMA EAR CANALS CLEAR AND NO DISCHARGE TM NO ERYTHEMA NOSE: NO DISCHARGE, NO BLEEDING. OROPHARYNX: MOUTH NORMAL, TONGUE PINK, PHARYNX CLEAR,NO ERYTHEMA, TONSILS NO EXUDATES, NO ABSCESSES NOTED, MUCOUS MEMBRANE MOIST NECK: SUPPLE, NON-TENDER, NO THYROMEGALY, NO MASSES, NO JVD, NO BRUITS BREAST:DEFERRED CHEST:NO TENDERNESS, NO CREPITUS, NO PARADOXICAL MOVEMENT, NO RETRACTIONS LUNGS:CLEAR, WELL-VENTILATED, SYMMETRIC, NO RALES, NO WHEEZING, NO RHONCHI, NO STRIDOR, GOOD BREATH SOUNDS BILATERALLY HEART: REGULAR RATE, REGULAR RHYTHM, NO MURMUR, NO GALLOPS VASCULAR: NO PERIPHERAL EDEMA, ABDOMEN: SOFT, POSITIVE BOWEL SOUNDS, NONDISTENDED, NO GUARDING, NONTENDER, NO REBOUND, NO MASSES NO HEPATOMEGALY, NO SPLENOMEGALY, NO ROMANO'S SIGN, NO HERNIAS. RECTAL: DEFERRED GENITAL: DEFERRED NEUROLOGICAL: NORMAL SPEECH, MOTOR FUNCTION INTACT, SENSORY FUNCTION INTACT MUSCULOSKELETAL: NECK NONTENDER, FULL RANGE OF MOTION, BACK NONTENDER, FULL RANGE OF MOTION, EXTREMITIES: RIGHT LATERAL MALLEOLAR TENDERNESS SWELLING. DECREASED RANGE OF MOTION SECONDARY TO PAIN. SKIN IS INTACT. SKIN: COLOR PINK, DRY, NO TURGOR, NO RASH, NO LACERATIONS, NO ABRASIONS, NO CONTUSIONS. LYMPHATIC: DEFERRED Results (Laboratory/Radiology) Laboratory/Radiology 1839/RIGHT ANKLE X-RAY NEGATIVE Labs Reviewed?: Yes ED Course ED Course Orders Procedure Category Date Status Time Ankle Comp 3vws Rt RAD 06/16/25 Taken 17:23 Posterior Ankle Splint COLETTE.ER 06/16/25 In Process 17:23 Crutches W/Training CPOE 06/16/25 Transmitted (Er) 17:23 Apply Ice Pack To: CPOE 06/16/25 Transmitted (Er) 17:23 Acetaminophen With PHA 06/16/25 Complete Codeine (Tylenol-Code 17:30 Current Medications Medications (Trade) Dose Ordered Sig/[place] Route PRN Reason Start Time Stop Time Status Last Admin Dose Admin Acetaminophen/ Codeine Phosphate (TYLenol-coDEINE TAB) 2 tab ONCE ONCE PO 06/16/25 17:30 06/16/25 17:34 DC Vital Signs Date Time Temp Pulse Resp B/P (MAP) Pulse Ox O2 Delivery O2 Flow Rate FiO2 06/16/25 17:17 97.9 91 20 144/88 98 Room Air 0/PATIENT HAD POSTERIOR RIGHT ANKLE SPLINT PLACED BY TECH, DISTAL NEUROVASCULAR CMS INTACT POST PLACEMENT. Medical Decision Making [facility] 1839/MEDICAL DECISION-MAKING BASED ON X-RAY OF RIGHT ANKLE AND HPI. PAIN WAS MANAGED WITH ICE APPLIED IN ER NO FRACTURE ON X-RAY PATIENT DISCHARGED HOME WITH SPLINT CRUTCHES AND NO WEIGHT-BEARING UNTIL CLEARED BY ORTHOPEDICS SHE IS AWARE THAT WE HAVE NO ORTHO CALL, SEE HER PRIMARY CARE DOCTOR NEXT ONE TWO DAYS FOR MANAGEMENT DX & DISP Disposition: Discharge Departure Impression: Primary Impression: Moderate right ankle sprain Condition: Stable Scripts Ibuprofen (Ibuprofen 800 mg Tab) 800 Mg Tab 800 MG PO Q8H PRN for fever or pain, #30 TAB 0 Refills Prov: YANDEL CASTILLO 06/16/25 Additional Instructions: FOLLOW-UP WITH PRIMARY CARE PROVIDER IN 1 TO 2 DAYS. TAKE MEDICATIONS DIRECTED HERE IN THE EMERGENCY ROOM. OKAY TO CONTINUE HOME MEDICATIONS UNLESS OTHERWISE DISCUSSED DURING YOUR VISIT IN THE EMERGENCY ROOM TODAY. RETURN TO YOUR NEAREST EMERGENCY ROOM IF SYMPTOMS WORSEN OR IF THERE IS NO IMPROVEMENT. CALL 911 IF YOU NEED IMMEDIATE ASSISTANCE. TAKE TYLENOL OR MOTRIN OMWO-YSU-DANNTYS NEEDED AND IF NO CONTRAINDICATIONS ARE PRESENT. INCREASE ORAL HYDRATION. A WOUND CULTURE OR URINE CULTURE WAS ORDERED HERE IN THE EMERGENCY ROOM DEPARTMENT PLEASE FOLLOW-UP WITH PRIMARY CARE PROVIDER AND ADVISE THEM TO GET REPEAT PORTS FROM OUR FACILITY. IF YOU HAD ANY DAVID WRAP/SPLINTS THAT WERE APPLIED HERE, PLEASE DO NOT REMOVE THEM UNTIL YOU SEE YOUR PRIMARY CARE OR SPECIALTY. SPLINT/CRUTCHES/NO WEIGHT-BEARING RIGHT LEG UNTIL CLEARED BY YOUR ORTHOPEDIC SURGEON. SEE YOUR DOCTOR TOMORROW FOR REFERRAL. COOL COMPRESSES TO PAIN THREE TO 4 TIMES A DAY. TAKE IBUPROFEN NEEDED FOR PAIN. Referrals: SELF,REFERRAL (PCP) Time of Disposition: 18:41 I have reviewed the case, and I agree with, Diagnosis and Plan YANDEL CASTILLO Jun 16, 2025 17:26
--- NOTE | 2025-06-16 18:51 | NUR ---
RT ANKLE SPLINT AND CRUTCHES FOR PT, PT TOLERATED WELL
[2025-06-16 18:52] VITALS: BP 132/78; PULSE 88; RESP 20; TEMP 97.9; O2SAT 98
--- NOTE | 2025-06-16 19:14 | NUR ---
PT A&OX4. PT REFUSED PAIN MEDICATION. PT EDUCATED ON THE POSITIVE EFFECTS OF PAIN MEDICATION CORRLATED TO PT'S DX. PT VERBALIZED UNDERSTANDING OF EDUCATION GIVEN BY ED RN. PT STILL REFUSING.
--- NOTE | 2025-06-16 19:29 | HMCIMG ---
EXAM: CR right ankle, 3 View. CLINICAL HISTORY: RIGHT LATERAL ANKLE PAIN SWELLING AFTER TRIP FALL THIS MORNING COMPARISON: December 14, 2011. FINDINGS: BONES: No acute fracture or aggressive appearing osseous lesion. JOINTS: The joint spaces appear within normal limits. No dislocation. No radiographic evidence of a joint effusion. SOFT TISSUES: Soft tissue edema at the lateral malleolus. IMPRESSION: 1. No acute osseous injury. Soft tissue edema at the lateral malleolus. /[place]
== END 2025-06-16 19:20 | disposition home or self-care (01) ==
LOC: EDH 17:16
DX: S93.401A Sprain of unspecified ligament of right ankle, initial encounter (principal); F31.9 Bipolar disorder, unspecified; Z79.52 Long term (current) use of systemic steroids; Z79.899 Other long term (current) drug therapy; Z90.49 Acquired absence of other specified parts of digestive tract; Z90.710 Acquired absence of both cervix and uterus; W18.39XA Other fall on same level, initial encounter; Y93.89 Activity, other specified; Y92.89 Other specified places as the place of occurrence of the external cause; Y99.8 Other external cause status
CPT/HCPCS: 29515; 73610; 99283